=== PATIENT | female | born 1950 | race Caucasian/White ===

== ENCOUNTER 2023-09-18 09:00 | Outpatient (RCR) | payer MEDICARE, BC, SELFPAY | END 2024-01-16 23:59 | disposition home or self-care (01) | PROVIDERS: PCP Family Medicine; Visit Provider Family Medicine | DX: M70.61 Trochanteric bursitis, right hip (principal); M25.551 Pain in right hip; M54.50 Low back pain, unspecified; Z74.09 Other reduced mobility; Z51.89 Encounter for other specified aftercare | CPT/HCPCS: 97110; 97140; 97162 ==

== ENCOUNTER 2025-01-11 09:29 | Emergency (ER) | payer MEDICARE, BC, SELFPAY ==
[2025-01-11] VITALS (27 sets, daily range): BP systolic 148–216; BP diastolic 60–91; PULSE 47–55; RESP 7–77; TEMP 36.1–36.4; O2SAT 94–98; BMI 28.2
--- OUTSIDE RECORDS SUMMARY | 2025-01-11 09:31 | XMS_ITS | Clinical Summary ---
Author Organization [facility] Address [address] [place] [id number] Care Team Providers Care Buffet Manager Name Role Phone Kaycee, Brenda Munoz MD Primary Care Provider Allergies Active Allergy Reactions Criticality Noted Date Comments Adhesive Anxiety,Rash 01/09/2019 Lactase Diarrhea 06/24/2024 Gluten Nausea Only 01/02/2016 Lactose GI Upset 01/15/2024 Levofloxacin Edema 05/18/2014 Swelling in left ankle Lisinopril Cough 11/29/2022 Sulfamethoxazole-Trimetho prim Rash High 02/26/2018 Patient had been on Bactrim from February 15, 2018, until about February 20, 2018. She restarted Bactrim on February 26, and, about 2.5 hours later, she started experiencing a burning, painful rash on the arms, legs, torso, influenza-like symptoms (fever and body aches), diarrhea and vomiting. Medications cholecalciferol (VITAMIN D) 1,000 unit capsule Take 1 capsule by mouth once daily. 0 3 Active ACIDOPHILUS/BULGAR ICUS (LACTOBACILLUS ACIDOPHILUS & BULGAR CHEWABLE) chewable tablet 14 billion Taking two daily 0 3 Active vitamin B complex with vitamin C (SUPER B COMPLEX-VITAMIN C) tablet Take 1 tablet by mouth once daily. 0 4 Active zinc acetate (GALZIN) 50 mg (zinc) cap Take 1 Capsule (50 mg) by mouth 3 times daily before meals. 0 1 Active ketoconazole 2% topical (NIZORAL) cream Apply topically to affected area(s) 2 times daily. 60 g 1 Active cetirizine (ZYRTEC) 10 mg tablet Take 1 Tablet (10 mg) by mouth once daily. 0 2 Active curcumin-phosphati dylcholine 500 mg cap Take by mouth. 0 2 Active medium chain triglycerides (MCT Oil) 14 gram-120 kcal/15 mL oil Take by mouth. 0 2 Active traZODone (DESYREL) 50 mg tabletIndications: Insomnia, idiopathic Take 3 Tablets (150 mg) by mouth at bedtime if needed for Sleep. 270 Tablet 3 5 Active rosuvastatin (CRESTOR) 10 mg tabletIndications: Hyperlipidemia, unspecified hyperlipidemia type TAKE 1 TABLET BY MOUTH EVERYDAY AT BEDTIME 90 Tablet 1 5 Active propranoloL (INDERAL) 20 mg tabletIndications: Tremor, essential Take 1.5 Tablets (30 mg) by mouth once daily. 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, estrogen receptor positive 01/02/2019 Malignant neoplasm of upper- outer quadrant of left breast in female, estrogen receptor positive 05/15/2018 History of breast cancer 04/23/2018 Osteoporosis 04/23/2018 Malignant neoplasm of left female breast 016 Overview (08/07/2021): 01/05/16 - s/p left breast complete mastectomy, left sentinal lymph node biopsy - Dr Daniels History of melanoma 07/21/2015 Left thyroid nodule 07/21/2015 Frozen shoulder 02/27/2013 Tremor, essential 08/03/2011 Symptomatic menopausal or female climacteric sta elke 05/29/2007 Encounters Date Type Department Care Team Description 12/09/2024 Refill [facility] [address] [facility] [address] Brenda Benoit MD Refill Request (Propranolol, Amlodipine) 12/01/2024 Refill [facility] [address] [facility] [address] Brenda Benoit MD Refill Request (Rosuvastatin) 11/26/2024 Refill [facility] [address] [place] [address] Brenda Benoit MD Refill Request (Trazodone) 10/28/2024 9:30 AM CLAIM SPECIALIST Ancillary Procedure [facility] [address] [place] [address] 10/27/2024 Travel from Last 3 Months Immunizations Name Administration Dates Next Due AMB INFLUENZA IIV3 (AGE 65+ YRS) PF (Flu Clinic Only) 09/07/2013 COVID-19 vaccine (Moderna 100mcg/0.5mL) PF, MDV 09/12/2021,01/20/2021,12/23/2020 COVID-19 vaccine (Moderna 50mcg/0.5mL) 12YO+ BIVALENT PF, MDV 09/12/2022 COVID-19 vaccine (Pfizer-Bio NTech 30mcg/0.3mL) 12YO+ PETER-SUCROSE PF, MDV 03/14/2022 Hepatitis A (Adult) 03/03/2007 Hepatitis A, Unspecified 03/03/2007,01/24/1996 Hepatitis B (Adult) 05/24/2003,10/06/1996,1995 Hepatitis B, Unspecified 05/24/2003 Inactivated Polio Vaccine 08/09/2009 Influenza A (H1N1), Inactivated 09/28/2009 Influenza, High-dose Inactivated 018,10/14/2017,07/27/2016,2014 Influenza, High-dose Quadriv alent Inactivated 07/17/2022 Influenza, IIV3 (Age >=3 years) 08/21/2011,11/24,10/11/2009 Influenza, IIV4 08/02/2014 Influenza, Inactivated AIIV4 (Age 65+ Years) Preserv Free 07/30/2023,08/07/2021 Influenza, Inactivated IIV3 (Age 65+ Years) Preserv Free 08/12/2024 Pneumococcal Poly,23-Valent (Pneumovax) 07/27/2016 Pneumococcal conj 13-Valent (Prevnar 13) 03/19/2015 Td, Preservative Free (age > = 7 Years) 01/24/1996 Tdap 07/27/2016,03/03/2007 Tuberculin Skin Test, Unspecified 05/24/2003 Typhoid (oral) 08/09/2009 Zoster (Shingrix-RZV, recombinant) 08/21/2019, Zoster (Zostavax-ZVL, live) 08/21/2011 Family History Medical History Relation Name Comments Other Father tumor in spine Other Mother Alzheimer's Cancer-breast Paternal Aunt Cancer-breast Paternal Grandmother Relation Name Status Comments Father Mother Paternal Aunt Paternal Grandmother Social History Tobacco Use Types Packs/Day Years Used Date Smoking Tobacco: Never Smokeless Tobacco: Never Tobacco Cessation:Counseling Given: Yes Alcohol Use Standard Drinks/Week Comments Yes 0 (1 standard drink = 0.6 oz pur e alcohol) weekly PHQ-2 Answer Date Recorded PHQ-2 TOTAL SCORE 0 01/15/2024 Social Connections Answer Date Recorded Frequency of Communication with Friends and Fami ly 0 07/25/2023 Financial Resource Strain Answer Date R ecorded Difficulty of Paying Living Expenses 3 07/25/2023 Difficulty of Paying Living Expenses Not on file 07/25/2023 Food Insecurity Answer Date Recorded Worried About Running Out of Food in the Last Ye ar 1 07/25/2023 Transportation Needs Answer Date Record ed Lack of Transportation (Medical) 1 07/25/2023 Housing Stability Answer Date Recorded Unable to Pay for Housing in the Last Year 1 07/25/2023 Comments No Sex and Gender Information Value Date Recorded Sex Assigned at Not on file Legal Sex Female 6:05 AM CLAIM SPECIALIST Gender Identity Not on file Sexual Orientation Not on file 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 Not on file Not on file Obstetrics History Last Filed Vital Signs Vital Sign Reading Time Taken Comments Blood Pressure 131/63 08/12/2024 2:49 PM CDT Pulse 40 08/12/2024 2:49 PM CDT Temperature 36.7 C (98.1 F) 04/17/2022 2:06 PM CDT Respiratory Rate 16 02/07/2023 4:25 PM CDT Oxygen Saturation 98% 08/12/2024 2:49 PM CDT Inhaled Oxygen Concentration - - Weight 77.6 kg (171 lb) 08/12/2024 2:49 PM CDT Height 165.7 cm (5' 5.25) 01/15/2024 2:47 PM CS T Body Mass Index 28.24 01/15/2024 2:47 PM CLAIM SPECIALIST Plan of Treatment Health Maintenance Due Date Last Done Comments COVID-19 vaccine series ( season) 2024 10/18/2023, 09/12/2022, 03/14/2022, Additional history exists RSV vaccine for adults or (1 - 1-dose 75+ series) 2024 BMI (ht and wt on same day) for age 18+ 01/15/2025 01/15/2024, 07/25/2023, 09/20/2022, Additional history exists Depression screening for age 12+ 01/15/2025 01/15/2024, 09/20/2022, 09/20/2022 Medicare Wellness for age 65+ 01/15/2025 01/15/2024, 09/20/2022 Tetanus booster 07/27/2026 07/27/2016, 02/16, 01/24/1996 Lipids for age 45-75 01/27/2029 01/28/2024, 09/20/20 22 Colonoscopy through age 75 02/07/203002/07, 02/07/2023, 02/07/2023, Additional history exists Pneumococcal series for age 50+ Completed 6, 03/19/2015 Tdap Completed 07/27/2016, 03/03/2007 Zoster (shingles) series for age 50+ Completed 08/21/2019, 07/20/2019, 08/21/2011 Hepatitis C screening for ag e 18-79 Completed 09/20/2022 Influenza for age 65+ Completed 08/12/2024 , 07/30/2023, 07/17/2022, Additional history exists DEXA/DXA scan for age 65+ Completed 2023, 10/18/2022, 08/07/2021, Additional history exists Procedures Procedure Name Priority Date/Time Associated Diagnosis Comments XR DXA BONE DENSITY 2 SITES AXIAL Routine 10/28/2024 9:54 AM CLAIM SPECIALIST Primary malignant neoplasm of upper inner quadrant of female breast, left (HC) Osteoporosis Postmenopausal state LIPID PANEL W REFLEX MEASURED LDL Routine 01/28/2024 8:39 AM CDT Lipid screening COLONOSCOPY SCREENING Routine 02/07/2023 2:55 PM CDT Screening for colon cancer ANTI HCV Routine 09/20/2022 10:41 AM CDT Need for hepatitis C screening test from Last 3 Months or Most Recently Relevant to Health Maintenance Results * (ABNORMAL) XR DXA BONE DENSITY 2 SITES AXIAL (10/28/2024 9:54 AM CLAIM SPECIALIST) Anatomical Region Laterality Modality Spine, HIPS, HIPL, HIPR Other Impressions 11/03/2024 1:57 PM CLAIM SPECIALIST Osteopenia. Due to the stability of the bone density, consider to continue medication, patient reported stopping Zometa in the past year. RECOMMENDATIONS: The National Osteoporosis Foundation recommends pharmacologic treatment for patients with T-scores of -2.5 or less, patients with prior history of fragility fractures, or patients with 10-year probability of greater than 3% at hips or greater than 20% of suffering major osteoporotic fractures. Recommend continued optimization of calcium and vitamin D intake through dietary means and/or supplementation and regular exercise. Consider pharmacologic therapy for osteopenia with increased fracture risk. Follow-up bone density reading in 2 years if therapy initiated to assess therapeutic efficacy. Arina Hudson PA-C [employer] [facility] 11/03/2024 Narrative 11/03/2024 1:57 PM CLAIM SPECIALIST For Patients: Results are automatically released to your [employer] ([employer]) account once available, in compliance with federal regulations. This means that you may see your results before your provider has had a chance to review them. Please allow 2-3 business days for your provider to comment on the results. XR DXA Bone Mineral Density (BMD) EXAM LOCATION: [facility] [address] [facility] [address] PATIENT NAME: Jesenia Saunders DATE OF : 1950 EXAM DATE: 10/28/2024 REQUESTING PROVIDER: Zaid Motley MBBS GENDER AT : female HEIGHT: 5' 5.25 (01/15/2024) WEIGHT: 171 lb (08/12/2024) MENOPAUSAL STATUS: Postmenopausal RACE/ETHNICITY: White RISK FACTORS: Family History of Hip Fracture (parental) and White Race CURRENT MEDICATION FOR BONE LOSS: NONE INDICATION: Follow-up of existing osteopenia, Follow-up of pharmacologic treatment, and Post-Menopause COMPARISON DATE(S): 2021 DXA scans are compared to prior studies for a patient only when the two (or more) studies were performed on the same scanner. It is not possible to compare data generated on one scanner to data from another because there are not standards in DXA equipment. This applies even if the two scanners are made by the same supervisor prop making. PROCEDURE: Dual-energy x-ray absorptiometry performed with routine technique. Reporting is completed in the form of a T-score. The T-score represents the standard deviation from peak bone mass based on young healthy adult. A Z-score is used for diagnosis in premenopausal women, and for men under the age of 50. FINDINGS: RESULT LUMBAR SPINE L1 - L4 BMD: 1.031 g/cm2 T-Score: - 1.3 Z-Score: + 0.0 Change from prior in 2021: Increase 0.3%. RESULTS FEMUR Left femoral neck BMD: 0.769 g/cm2 T-Score: - 1.9 Z-Score: - 0.3 Change from prior in 2021: Decrease 3.9%. Right femoral neck BMD: 0.735 g/cm2 T-Score: - 2.2 Z-Score: - 0.5 Change from prior in 2021: Decrease 0.1%. Left hip BMD: 0.843 g/cm2 T-Score: - 1.3 Z-Score: + 0.1 Change from prior in 2021: Decrease 2.2%. Right hip BMD: 0.872 g/cm2 T-Score: - 1.1 Z-Score: + 0.4 Change from prior in 2021: Increase 1.5 WHO criteria: Normal: T-score at or above -1 SD Osteopenia: T-score between -1.1 and -2.4 SD Osteoporosis: T-score at or below -2.5 SD FRAX score: Major osteoporotic fracture: 14% Hip fracture: 3.7%. Zaid STEVENS DEXA Final Re sult * LIPID PANEL W REFLEX MEASURED LDL (01/28/2024 8:39 AM CDT) Pathologist [facility] CHOLESTEROL,TOTAL 158 100 - 199 mg/dL 01/28/2024 7:17 PM CDT [facility] Comment: Cholesterol, Total Reference Ranges Desirable <200 mg/dL Borderline 200-239 mg/dL High >=240 mg/dL TRIGLYCERIDES 84 <150 mg/dL 01/28/2024 7:17 PM CDT [facility] HDL CHOLESTEROL 74 >40 mg/dL 7:17 PM CDT [facility] NON-HDL CHOLESTEROL 84 <145 mg/dl 01/28/2024 7:17 PM CDT [facility] CHOL/HDL RATIO 2.14 <4.50 01/28/2024 7:17 PM CDT [facility] LDL CHOLESTEROL 67 <=130 mg/dL 01/28/2024 7:17 PM CDT [facility] VLDL CHOLESTEROL 17 <=30 mg/dL 01/28/2024 7:17 PM CDT [facility] PROVIDER ORDERED STATUS RANDOM 01/28/2024 7:17 PM CDT [facility] Blood BLOOD SPECIMEN / Unknown Venipuncture / Unknown 01/28/2024 8:39 AM CDT 01/28/2024 8:40 AM CDT Brenda Beniot MD CHEMISTRY Final R esult [facility] [address] [place] [address], * COLONOSCOPY (02/07/2023 2:44 PM CDT) 02/07/2023 2:44 PM CDT Narrative Transcriptions Taurus Shahid MD - 02/07/2023 4:09 PM CDT Patient Name: Jesenia Saunders Procedure Date: 02/07/2023 Gender: Female Date of : 1950 Admit Type: Outpatient Procedure: Colonoscopy Proceduralist: Taurus Shahid MD , Francia Scales, ABBIE (Nurse), Herlinda Stein (Nurse) Referring MD: Brenda Benoit Indications/Pre-Op Diagnosis: Screening for colorectal malignant neoplasm, Last colonoscopy: November 2012, Incidental diarrhea noted Medications: Fentanyl 100 micrograms IV, Midazolam 3 mgIV, The level of sedation administered wasmoderate Procedure Description: The patient had risks, benefits and alternatives explained to andgave informed consent. The patient had a stable cardiopulmonary status and judged an adequate candidate for conscious sedation. The endoscope [id number]-[id number] was passed through the anus andadvanced to the terminal ileum. The colonoscopy was performed withoutdifficulty. The patient tolerated the procedure well. The quality of the bowel preparation was good. The ileocecal valve, appendiceal orifice, and rectum were photographed. Complications: No immediate complications. Estimated Blood Loss & Specimen: Estimated blood loss: none. Specimen collected - Yes and sent to Laboratory Findings: The perianal and digital rectal examinations were normal. A 3 mm polyp was found in the rectum. The polyp was pedunculated. The polyp was removed with a cold snare. Resection and retrieval were complete. The exam was otherwise without abnormality. Biopsies for histology were taken with a cold forceps from the entire colon for evaluation of microscopic colitis. Impressions/Post-Op Diagnosis: - One 3 mm polyp in the rectum, removed with a cold snare. Resectedand retrieved. - The examination was otherwise normal. - Biopsies were taken with a cold forceps from the entire colon for evaluation of microscopic colitis. Recommendation: - Patient has a contact number available for emergencies. The signsand symptoms of potential delayed complications were discussed with the patient. Return to normal activities tomorrow. Written discharge instructions were provided to the patient. - Resume previous diet. - Continue present medications. - Await pathology results. - Repeat colonoscopy is recommended. The colonoscopy date will be determined after pathology results from today's exam become available for review. Moderate Sedation: A time out was performed before the procedure. Moderate (conscious) sedation was administered by the endoscopy nurse and supervised bythe endoscopist. The following parameters were monitored: oxygensaturation, heart rate, blood pressure, EKG, CO2, respiratory rate, adequacy of pulmonary ventilation and reponse to care. Please refer to the patient's medical record flowsheets and nursing notes for moderate sedation details. Total physician intraservice time was 18 minutes. Taurus Shahid MD 02/07/2023 4:09:40 PM This report has been signed electronically. Note Initiated On: 02/07/2023 2:44 PM Procedure Code(s): --- Professional --- 02003, Colonoscopy, flexible; with removalof tumor(s), polyp(s), or other lesion(s) bysnare technique 69119, 59, Colonoscopy, flexible; withbiopsy, single or multiple Diagnosis Code(s): --- Professional --- Z12.11, Encounter for screening formalignant neoplasm of colon D12.8, Benign neoplasm of rectum CPT copyright 2020 [employer]. All rights reserved. The codes documented in this report are preliminary and upon software engineer web services reviewmay be revised to meet current compliance requirements. Scope In: 3:43:24 PM Scope Withdrawal Time 0 hours 10 minutes 57 seconds Scope Out: 3:59:36 PM us Taurus Shahid MD PROCEDURE ORD Final Res ult * ANTI HCV (09/20/2022 10:41 AM CDT) HEPATITIS C ANTIBODY Non-React leo Non-React leo 09/21/2022 3:13 AM CDT [facility] Comment:Antibodies to HCV no t detected; does not exclude the possibility of exposure to HCV. Blood BLOOD SPECIMEN / Unknown Venipuncture / Unknown 09/20/2022 10:41 AM CDT 09/20/2022 10:41 AM CDT us Brenda Benoit MD SEND OUTS Final R esult [facility] [address] [place] [address], [place] from Last 3 Months or Most Recently Relevant to Health Maintenance Insurance BLUE [employer] [place] BLUE MR PB ONLY [id number] MR [place] ONLY [place] [id number] Care Teams Buffet Manager Relationship Specialty Start Date End Date Brenda Benoit MD [address] [place] [address] PCP - General Family Practice 08/07/21
--- OUTSIDE RECORDS SUMMARY | 2025-01-11 09:31 | XMS_ITS | Encounter Summary ---
Author Organization [facility] Address [address] [place] [address] Care Team Providers Care Doctor Osteopathic Name Role Phone Michael Murphy MD Primary Care Provider [phone] Michael Murphy MD Unavailable [phone] Adry Wang-C Unavailable [phone] Adry Wang-C Unavailable [phone] Michael Murphy MD Unavailable [phone] Shirley Galindo-C Unavailable [phone] Adry Wang-C Unavailable [phone] [facility] Primary Care Pr ovider Unavailable Lisette Olmstead-C Unavailable [phone] Lisette Olmstead-C Unavailable [phone] Brenda Benoit MD Primary Care Provider Lisette Olmstead-C Unavailable [phone] Lisette Olmstead-C Unavailable [phone] Reason for Visit * Reason Onset Date Comments Nurse Advice Line 12/20/2011 Encounter Details Date Type Department Care Team (Late st Contact Info) Description 12/20/2011 Telephone [facility] [address] [place] [phone] [place] [address] [place] [address] Nurse Advice Line Social History Tobacco Use Types Packs/Day Years Used Date Smoking Tobacco: Never Smokeless Tobacco: Never Alcohol Use Standard Drinks/Week Comments Yes 0 (1 standard drink = 0.6 oz pur e alcohol) occasional Comments No Sex and Gender Information Value Date Recorded Sex Assigned at Female 12/07/2021 7:51 AM WEIGHER BULKER Legal Sex Female 3:22 AM WEIGHER BULKER Gender Identity Female 12/07/2021 7:51 AM WEIGHER BULKER Sexual Orientation Not on file documented as of this encounter Miscellaneous Notes * Telephone Encounter - Nicole Hernandez - 09/17/2012 9:32 PM CDT [facility] Triage Call Report Patient Name: Jesenia Saunders Call Date & Time: 12/20/2011 7:47:08AM Patient PCP Name: Michael Murphy Patient Address: [address] [place] [id number] Patient Date of : 1950 Age: 61 yr. Patient Gender: Female Supervisor Engraving Name: Izabel Mcneill Presenting Problem: Jesenia has been on amoxicillin for 10 days for a sinus infection. During the last 3 days a cough developed and keeps her from sleeping. Jesenia hears a rattle in chest. No fever. [facility] Triage/Cough-Adult and advised to be seen within 24 hours and caller agreed. Triage Note: Guideline Title: Cough - Adult Recommended Disposition: Override Disposition: See Provider within 24 hours Question Response Question Note Severe breathing problems No Cough producing pink, frothy sputum No Breathing symptoms (post choking episode, shortness of No breath, out of breath, nasal flaring, change in skin color, anxiety) main problem Continuous cough causing difficulty breathing No Coughing up large amount of obvious blood (not No blood-streaked sputum) New onset or worsening cough, history of blood clots in No lungs or legs AND similar symptoms now New onset or worsening cough AND recent (within 4 wks.) No surgery or trauma, or prolonged immobilization (bedrest, long travel), or smoker taking medication with estrogen New or worsening cough AND chronic cardiac or No respiratory condition (heart failure, asthma, COPD) not responding to treatment OR treatment not available Any temperature elevation in an immunocompromised No individual or a frail elderly person New onset or worsening cough AND temperature of 101.5 No F (38.6C) or greater Blood streaked sputum No New onset or worsening cough AND asthma with increasing No frequency of flare-ups since last scheduled appointment New onset or worsening cough AND known cardiac or No respiratory disease (heart failure, chronic bronchitis, COPD, pneumonia, cancer, etc.) Sharp, fleeting chest pain only occurring with deep No breath or cough AND not responsive to home care Facial pain (fullness, pressure, worsens with bending No over), frontal headache, yellow-green nasal discharge AND any temperature elevation Productive cough with colored sputum (other than clear Yes or white sputum) Physician Contacted: Physician Instructions: No Care Advice: - Use a cool mist humidifier to moisten air. Be sure to clean according to tool maker's instructions. - Limit or avoid exposure to irritants and allergens (e.g. air pollution, smoke/smoking, chemicals,dust, pollen, pet dander, etc.) - Call provider if fever greater than 101.5 F (38.6 C) or 100.5 F (38.1C) in an immunocompromised patient (such as diabetes, HIV/AIDS, renal disease, chemotherapy, organ transplant, or chronic steroid use) has not improved in 24 hours. - Increase fluids to 8-12 eight oz (1.6 to 2.4 liters) glasses per day, half of them to be water. Soups, popsicles, fruit juices, non-caffeinated sodas (unless restricting sodium intake), jello, broths, decaf teas, etc. are all okay. Warm fluids can be soothing. - CAUTIONS - If you can, stop smoking now and avoid all secondhand smoke. - HEALTH PROMOTION / MAINTENANCE - SYMPTOM / CONDITION MANAGEMENT - Coughing up mucus or phlegm helps to get rid of an infection. A productive cough should not be stopped. A cough medicine with guaifenesin (Robitussin, Mucinex) can help loosen the mucus. Cough medicine with dextromethorphan (DM) should be avoided. Drinking lots of fluids can help loosen the mucus too, especially warm fluids. MEDICAL HISTORY Conditions: Condition Note: .Other Current-Sinus Infection; Hereditary Hand Tremor Medication: Medication Note: .Other - RX Med, not on list Amoxicillin-for sinus infection; Propanolol, & Actonel Allergy: Reaction: .Denies .None Procedure: Procedure Note: .Other Appendectomy documented in this encounter Plan of Treatment Upcoming Encounters Date Type Department Care Team (Late st Contact Info) Description 03/22/2025 3:00 PM CDT Virtual Visit [facility] [address] [place] [phone] Lisette Olmstead PA-C [address] [id number] documented as of this encounter Visit Diagnoses Not on filedocumented in this encounter Care Teams Doctor Osteopathic Relationship Specialty Start Date End Date Michael Murphy MD [address] [place] [address] [id number] PCP - General 05/24/03 11/06/21 Michael Murphy MD [address] [place] [address] PCP - Assigned PCP 12/30/08 10/18/18 Adry Wang PA-C [address] [place] [address] PCP - Assigned PCP 10/19/18 01/20/[address] [address] PCP - General 11/07/21 02/22/23 Brenda Benoit MD [address] [place] [address] [place] [address] PCP - General Family Medicine 09/27/23 Adry Wang PA-C [address] [place] [address] [place] [address] Assigned PCP 10/19/18 03/21/19 Michael Murphy MD [address] [place] [address] [id number] Assigned PCP 03/22/19 10/15/20 Shirley Galindo PA-C [address] [place] [address] 199402 Assigned PCP 10/16/20 02/18/21 Adry Wang PA-C [address] [place] [address] [place] [address] Assigned PCP 02/19/21 03/25/21 Lisette Olmstead PA-C [address] [place] [address] Physician Plug Machine Operator Urology 11/17/21 Lisette Olmstead PA-C [address] [place], [place] 4160[address] Assigned Surgical Provider 12/10/21 Lisette Olmstead PA-C [address] [place] [address] Physician Plug Machine Operator Urology 10/08/24 Lisette Olmstead PA-C [address] [place] [address] Physician Plug Machine Operator Urology 12/28/24 documented as of this encounter
--- OUTSIDE RECORDS SUMMARY | 2025-01-11 09:31 | XMS_ITS | Encounter Summary ---
Author Organization [facility] Address [address] [place] [address] Care Team Providers Care Biomedical Engineering Aide Name Role Phone Lisette Olmstead PA-C Unavailable Lisette Olmstead PA-C Unavailable Brenda Benoit MD Primary Care Provider Lisette Olmstead PA-C Unavailable Encounter Details Date Type Department Care Team (Latest Contact Info) Description 12/23/2024 Travel Social History Tobacco Use Types Packs/Day Years Used Date Smoking Tobacco: Never Smokeless Tobacco: Never Alcohol Use Standard Drinks/Week Comments Yes 0 (1 standard drink = 0.6 oz pur e alcohol) 2-3 glasses of wine/week PHQ-2 Answer Date Recorded PHQ-2 Score 0 11/25/2018 Adolescent Education Answer Date Record ed Getting School Help Needed Not on file 08/18 Comments No Sex and Gender Information Value Date Recorded Sex Assigned at Female 12/07/2021 7:51 AM COMMISSIONING AGENT Legal Sex Female 3:22 AM COMMISSIONING AGENT Gender Identity Female 12/07/2021 7:51 AM COMMISSIONING AGENT Sexual Orientation Not on file 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 on file Not on file documented as of this encounter Plan of Treatment Upcoming Encounters Date Type Department Care Team (Late st Contact Info) Description 03/22/2025 3:00 PM CDT Virtual Visit [facility] [address] [place] [phone] Lisette Olmstead PA-C [address] [place] [address] documented as of this encounter Visit Diagnoses Not on filedocumented in this encounter Care Teams Biomedical Engineering Aide Relationship Specialty Start Date End Date Brenda Benoit MD [address] [place] [address], [place] [address] PCP - General Family Medicine 09/27/23 Lisette Olmstead PA-C [address] [place] [address] Physician Tarp Repairer Urology 11/17/21 Lisette Olmstead PA-C [address] [place], [place] [id number] Assigned Surgical Provider 12/10/21 Lisette Olmstead PA-C [address] [place] [address] Physician Tarp Repairer Urology 10/08/24 documented as of this encounter
--- OUTSIDE RECORDS SUMMARY | 2025-01-11 09:31 | XMS_ITS | Encounter Summary ---
Author Organization [facility] Address [address] [place] [address] Care Team Providers Care Avionics Technician Name Role Phone Lisette Olmstead PA-C Unavailable Lisette Olmstead PA-C Unavailable Brenda Benoit MD Primary Care Provider Lisette Olmstead PA-C Unavailable Reason for Referral * Diagnostic Imaging CT Scan (Routine) - Closed Specialty Diagnoses / Procedures Referred By Aly fitch Referred To Contact Radiology. Diagnoses Nephrolithiasis Procedures CT Abdomen Pelvis w/o Contrast Lisette Olmstead PA-C [address] [place] [address] Phone: tel: fax: Referral ID Status Reason Start Date Expiration Date Visits Re quested Visits Authorized [id number] Closed 09/17/2024 09/17/2025 1 1 L CLERK Reason for Visit * Diagnostic Imaging CT Scan (Routine) - Closed Specialty Diagnoses / Procedures Referred By Contjessica fitch Referred To Contact Radiology. Diagnoses Nephrolithiasis Procedures CT Abdomen Pelvis w/o Contrast Lisette Olmstead PA-C [address] [place] [address] Phone: tel: fax: Referral ID Status Reason Start Date Expiration Date Visits Re quested Visits Authorized [id number] Closed 09/17/2024 09/17/2025 1 1 Encounter Details Date Type Department Care Team (Latest Contact Info) Description 12/23/2024 10:41 AM HOTEL CLERK - 12/23/2024 11:59 PM HOTEL CLERK Hospital Encounter [facility] [address] [place] [phone] Lisette Olmstead PA-C [address] [place] [address] Nephrolithiasis Discharge Disposition: Home or Self Care Social History Tobacco Use Types Packs/Day Years [...] Sex Assigned at Female 12/07/2021 7:51 AM HOTEL CLERK Legal Sex Female 3:22 AM HOTEL CLERK Gender Identity Female 12/07/2021 7:51 AM HOTEL CLERK Sexual Orientation Not on file 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 on file Not on file documented as of this encounter Medications at Time of Discharge ACIDOPHILUS OR CAPS one capsules daily 0 04/05/2009 amLODIPine (NORVASC) 5 MG tablet Take 5 mg by mouth daily 11/29/2022 anastrozole (ARIMIDEX) 1 MG tablet 1 mg Take 1 tablet daily 03/05/2016 calcium citrate-vitamin D (CITRACAL) 200-6.25 MG-MCG TABS per tablet Take 3 tablets by mouth 2 times daily cholecalciferol (VITAMIN D) 1000 UNIT tablet Take 1,000 Units by mouth daily 100 tablet 3 07/27/2016 co-enzyme Q-10 100 MG CAPS capsule Take 300 mg by mouth daily ginkgo biloba 60 MG CAPS capsule Take 120 mg by mouth daily magnesium 100 MG CAPS Take 2 capsules by mouth daily 07/27/2016 Misc Natural Products (TURMERIC CURCUMIN) CAPS Take 1,330 mg by mouth 12/30/2015 Multiple Vitamins-Mineral s (ZINC PO) Take 54 mg by mouth omega 3 1000 MG CAPS Take 1 g by mouth daily 90 capsule 12/30/2015 POTASSIUM CITRATE PO Take 200 mg by mouth daily propranolol HCl 60 MG TABSIndications: Tremor, essential TAKE 1 TABLET BY MOUTH ONCE EVERY DAY . 90 tablet 2 01/15/2018 Psyllium-Calcium (METAMUCIL PLUS CALCIUM) CAPS Take 2 capsules by mouth 2 times daily rosuvastatin (CRESTOR) 10 MG tablet Take 10 mg by mouth daily 10/26/2022 traZODone (DESYREL) 50 MG tablet Take 150 mg by mouth At Bedtime UNABLE TO FIND 830 mg MEDICATION NAME: DHA Omega3 - 1 tablet daily 12/30/2015 vitamin B complex with vitamin C (STRESS TAB) tablet Take 1 tablet by mouth daily vitamin E (VITAMIN E BLEND) 400 UNIT capsule Take by mouth daily 30 capsule 07/27/2016 zoledronic Acid (RECLAST) 5 MG/100ML SOLN infusion Inject 100 mLs (5 mg) into the vein once for 1 dose 100 mL 03/21/2018 documented as of this encounter Plan of Treatment Upcoming Encounters Date Type Department Care Team (Late st Contact Info) Description 03/22/2025 3:00 PM CDT Virtual Visit [facility] [address] [place] [address] Lisette Olmstead PA-C [address] [facility] [address] [place], [place] [address] documented as of this encounter Procedures Procedure Name Priority Date/Time Associated Diagnosis Comments CT ABDOMEN PELVIS W/O CONTRAST Routine 12/23/2024 11:10 AM HOTEL CLERK Nephrolithiasis documented in this encounter Results * CT Abdomen Pelvis w/o Contrast (12/23/2024 11:10 AM HOTEL CLERK) Anatomical Region Laterality Modality Abdomen/Pelvis, SUBRAD CT JAMEEL DY, UMP CT ABDOMEN PELVIS, RAD CT Computed Tomography 12/23/2024 11:1 0 AM HOTEL CLERK Impressions 12/23/2024 12:43 PM HOTEL CLERK IMPRESSION: 1. Stable stone burden involving the bilateral kidneys with multiple intrarenal stones. No hydronephrosis. 2. Stable nodule at the left lung base. The prior exam report states that this nodule is stable since 11/07/2021. Narrative 12/23/2024 12:43 PM HOTEL CLERK EXAM: CT ABDOMEN PELVIS W/O CONTRAST LOCATION: [facility] DATE: 12/23/2024 INDICATION: Nephrolithiasis. COMPARISON: 12/19/2023. TECHNIQUE: CT scan of the abdomen and pelvis was performed without IV contrast. Multiplanar reformats were obtained. Dose reduction techniques were used. CONTRAST: None. FINDINGS: LOWER CHEST: Stable lingular solid nodule measuring 9 mm series 4 image 1. HEPATOBILIARY: Normal. PANCREAS: Normal. SPLEEN: Normal. ADRENAL GLANDS: Normal. KIDNEYS/BLADDER: No hydronephrosis. A few renal cysts are stable bilaterally without specific imaging follow-up recommended. Stable multifocal bilateral 3-4 mm intrarenal stones. Stable stone burden. Bladder is unremarkable. BOWEL: No obstruction or acute abnormality. Scattered colonic diverticula without diverticulitis. LYMPH NODES: Normal. VASCULATURE: Mild vascular calcifications. PELVIC ORGANS: Normal. MUSCULOSKELETAL: Mild degenerative changes of the spine. Procedure Note Dale Oneal MD - 12/23/2024 EXAM: CT ABDOMEN PELVIS W/O CONTRAST LOCATION: [facility] DATE: 12/23/2024 INDICATION: Nephrolithiasis. COMPARISON: 12/19/2023. TECHNIQUE: CT scan of the abdomen and pelvis was performed without IVcontrast. Multiplanar reformats were obtained. Dose reduction techniqueswere used. CONTRAST: None. FINDINGS: LOWER CHEST: Stable lingular solid nodule measuring 9 mm series 4 image1. HEPATOBILIARY: Normal. PANCREAS: Normal. SPLEEN: Normal. ADRENAL GLANDS: Normal. KIDNEYS/BLADDER: No hydronephrosis. A few renal cysts are stablebilaterally without specific imaging follow-up recommended. Stablemultifocal bilateral 3-4 mm intrarenal stones. Stable stone burden.Bladder is unremarkable. BOWEL: No obstruction or acute abnormality. Scattered colonic diverticulawithout diverticulitis. LYMPH NODES: Normal. VASCULATURE: Mild vascular calcifications. PELVIC ORGANS: Normal. MUSCULOSKELETAL: Mild degenerative changes of the spine. IMPRESSION: 1. Stable stone burden involving the bilateral kidneys with multipleintrarenal stones. No hydronephrosis. 2. Stable nodule at the left lung base. The prior exam report states thatthis nodule is stable since 11/07/2021. Lisette Olmstead PA-C IMG CT ORDERABLES Fin al Result documented in this encounter Visit Diagnoses Diagnosis Nephrolithiasis Calculus of kidney documented in this encounter Care Teams Avionics Technician Relationship Specialty Start Date End Date Brenda Benoit MD [address] [place] [address] PCP - General Family Medicine 09/27/23 Lisette Olmstead PA-C [address] [place], [place] [address] Physician Boss Dyer Urology 11/17/21 Lisette Olmstead PA-C [address] [place] [address] Assigned Surgical Provider 12/10/21 Listete Olmstead PA-C [address] [place], [place] [address] Physician Boss Dyer Urology 10/08/24 documented as of this encounter
--- OUTSIDE RECORDS SUMMARY | 2025-01-11 09:31 | XMS_ITS | Encounter Summary ---
Author Organization [facility] Address [address] [place] [address] Care Team Providers Care Agriculture Specialist Name Role Phone Michael Murphy MD Primary Care Provider [phone] Michael Murphy MD Unavailable [phone] Adry Wang-C Unavailable [phone] Adry Wang-C Unavailable [phone] Michael Murphy MD Unavailable [phone] Shirley Galindo-C Unavailable [phone] Adry Wang-C Unavailable [phone] [facility] Primary Care Pr ovider Unavailable Lisette Olmstead-C Unavailable +[phone] Lisette Olmstead-C Unavailable +[phone] Brenda Benoit MD Primary Care Provider Lisette OlmsteadC Unavailable +1- Lisette Olmstead-C Unavailable +1- Encounter Details Date Type Department Care Team (Late st Contact Info) Description 08/07/2010 [facility] Medical Advice [address] [place] [place] [phone] Michael Murphy MD [address] [place] [id number] Social History Tobacco Use Types Packs/Day Years Used Date Smoking Tobacco: Never Alcohol Use Standard Drinks/Week Comments Yes 0 (1 standard drink = 0.6 oz pur e alcohol) occasional Comments No Sex and Gender Information Value Date Recorded Sex Assigned at Female 12/07/2021 7:51 AM SUPERVISOR COMMUNICATIONS AND SIGNALS Legal Sex Female 3:22 AM SUPERVISOR COMMUNICATIONS AND SIGNALS Gender Identity Female 12/07/2021 7:51 AM SUPERVISOR COMMUNICATIONS AND SIGNALS Sexual Orientation Not on file documented as of this encounter Plan of Treatment Upcoming Encounters Date Type Department Care Team (Late st Contact Info) Description 03/22/2025 3:00 PM CDT Virtual Visit [facility] [address] [place] [phone] Lisette Olmstead PA-C [address] [address] documented as of this encounter Visit Diagnoses Not on filedocumented in this encounter Care Teams Agriculture Specialist Relationship Specialty Start Date End Date Michael Murphy MD [address] [place] [address] [id number] PCP - General 05/24/03 11/06/21 Michael Murphy MD [address] [place] [address] PCP - Assigned PCP 12/30/08 10/18/18 Adry Wang PATheodoraC [address] [place] [address] PCP - Assigned PCP 10/19/18 01/20/19 [facility], [address] [address] PCP - General 11/07/21 02/22/23 Brenda Benoit MD [address] [place] [address] [place] [address] PCP - General Family Medicine 09/27/23 Adry Wang PA-C [address] [place], [place] [address] [place] [address] Assigned PCP 10/19/18 03/21/19 Michael Murphy MD [address] [place] [address] Assigned PCP 03/22/19 10/15/20 Shirley Galindo PA-C [address] [place] [address] Assigned PCP 10/16/20 02/18/21 Adry Wang PA-C [address] [place] [address] [place] [address] Assigned PCP 02/19/21 03/25/21 Lisette Olmstead PA-C [address] [place] [address] Physician Flap Presser Urology 11/17/21 Lisette Olmstead PA-C [address] [place] [address] Assigned Surgical Provider 12/10/21 Lisette Olmstead PA-C [address] [place] [address] Physician Flap Presser Urology 10/08/24 Lisette Olmstead PA-C [address] [place] [address] Physician Flap Presser Urology 12/28/24 documented as of this encounter
--- OUTSIDE RECORDS SUMMARY | 2025-01-11 09:31 | XMS_ITS | Encounter Summary ---
Author Organization [place] Address [address] [place] [address] Care Team Providers Care Spanner Operator Name Role Phone Michael Murphy MD Primary Care Provider [phone] Michael Murphy MD Unavailable [phone] Adry Wang-C Unavailable +[phone] Adry Wang-C Unavailable +1-4 Michael Murphy MD Unavailable [phone] Shirley Galindo PA-C Unavailable [phone] Adry Wang-C Unavailable +[phone] [facility] Primary Care Pr ovider Unavailable Lisette Olmstead-C Unavailable [phone] Lisette Olmstead-C Unavailable +[phone] Bredna Benoit MD Primary Care Provider Lisette Olmstead-C Unavailable [phone] Lisette Olmstead-C Unavailable +[phone] Reason for Visit * Reason Onset Date Comments MyChart Communication 03/05/2013 Encounter Details Date Type Department Care Team (Late st Contact Info) Description 03/05/2013 MyC Medical Advice [facility] [address] [place] [address] [place] [phone] [place] [address] [place] [address] [place] [address] MyChart Communication Social History Tobacco Use Types Packs/Day Years Used Date Smoking Tobacco: Never Smokeless Tobacco: Never Alcohol Use Standard Drinks/Week Comments Yes 0 (1 standard drink = 0.6 oz pur e alcohol) seldom Comments No Sex and Gender Information Value Date Recorded Sex Assigned at Female 12/07/2021 7:51 AM COIL WINDING MACHINES SET UP MECHANIC Legal Sex Female 3:22 AM COIL WINDING MACHINES SET UP MECHANIC Gender Identity Female 12/07/2021 7:51 AM COIL WINDING MACHINES SET UP MECHANIC Sexual Orientation Not on file 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 Thank you! Denita Peña, RN [facility] documented in this encounter Plan of Treatment Upcoming Encounters Date Type Department Care Team (Late st Contact Info) Description 03/22/2025 3:00 PM CDT Virtual Visit [facility] [address] [place] [address] Lisette Olmstead, NICK [address] [place] [address] [place] [address] documented as of this encounter Visit Diagnoses Not on filedocumented in this encounter Care Teams Spanner Operator Relationship Specialty Start Date End Date Michael Murphy MD [address] [place] [address] PCP - General 05/24/03 11/06/21 Michael Murphy MD [address] [place] [address] PCP - Assigned PCP 12/30/08 10/18/18 Adry Wang PA-C [address] [place] [address] PCP - Assigned PCP 10/19/18 01/20/[address] [address] PCP - General 11/07/21 02/22/23 Brenda Benoit MD [address] [place] [address] PCP - General Family Medicine 09/27/23 Adry Wang PA-C [address] [place] [address] Assigned PCP 10/19/18 03/21/19 Michael Murphy MD [address] [place] [address] Assigned PCP 03/22/19 10/15/20 Shirley Galindo PA-C [address] [place] [address] Assigned PCP 10/16/20 02/18/21 Adry Wang PA-C [address] [facility] [place] [address] Assigned PCP 02/19/21 03/25/21 Lisette Olmstead PA-C [address] [place], [place] [phone] Physician Electronic Warfare Officer Urology 11/17/21 Lisette Olmstead PA-C [address] [place] [address] Assigned Surgical Provider 12/10/21 Lisette Olmstead PA-C [address] [place] [address] Physician Electronic Warfare Officer Urology 10/08/24 Lisette Olmstead PA-C [address] [place] [address] Physician Electronic Warfare Officer Urology 12/28/24 documented as of this encounter
--- OUTSIDE RECORDS SUMMARY | 2025-01-11 09:31 | XMS_ITS | Encounter Summary ---
Author Organization [place] Address [address] [place] [address] Care Team Providers Care Motocross Racer Name Role Phone Michael Murphy MD Primary Care Provider [phone] Michael Murphy MD Unavailable [phone] Adry Wang-C Unavailable +[phone] Adry Wang-C Unavailable +1-4 Michael Murphy MD Unavailable [phone] Shirley Galindo-C Unavailable [phone] Adry Wang-C Unavailable +[phone] [facility] Primary Care Pr ovider Unavailable Lisette Olmstead-C Unavailable +1- Lisette Olmstead-C Unavailable +[phone] Brenda Benoit MD Primary Care Provider Lisette Olmstead-C Unavailable +1- Lisette Olmstead-C Unavailable +1- Encounter Details Date Type Department Care Team (Late st Contact Info) Description 03/11/2007 MyC Medical Advice [address] [place] [address] [facility] Social History Tobacco Use Types Packs/Day Years Used Date Smoking Tobacco: Never Alcohol Use Standard Drinks/Week Comments Yes 0 (1 standard drink = 0.6 oz pur e alcohol) occasional Comments No Sex and Gender Information Value Date Recorded Sex Assigned at Female 12/07/2021 7:51 AM PROSTHETICS LAB TECHNICIAN Legal Sex Female 3:22 AM PROSTHETICS LAB TECHNICIAN Gender Identity Female 12/07/2021 7:51 AM PROSTHETICS LAB TECHNICIAN Sexual Orientation Not on file documented as of this encounter Plan of Treatment Upcoming Encounters Date Type Department Care Team (Late st Contact Info) Description 03/22/2025 3:00 PM CDT Virtual Visit [facility] [address] [place] [phone] Lisette Olmstead PA-C [address] [facility] [address] [address] documented as of this encounter Visit Diagnoses Not on filedocumented in this encounter Care Teams Motocross Racer Relationship Specialty Start Date End Date Michael Murphy MD [address] [place] [address] PCP - General 05/24/03 11/06/21 Michael Murphy MD [address] [place] [address] PCP - Assigned PCP 12/30/08 10/18/18 Adry Wang PA-C [address] [place] [address] PCP - Assigned PCP 10/19/18 01/20/19 [facility], [address] [address] PCP - General 11/07/21 02/22/23 Brenda Benoit MD [address] [place] [address], [place] [address] PCP - General Family Medicine 09/27/23 Adry Wang PA-C [address] [place] [address] [place] [address] Assigned PCP 10/19/18 03/21/19 Michael Murphy MD [address] [place] [address] [phone] Assigned PCP 03/22/19 10/15/20 Shirley Galindo PA-C [address] [place] [address] Assigned PCP 10/16/20 02/18/21 Adry Wang PA-C [address] [place] [address] [place] [address] Assigned PCP 02/19/21 03/25/21 Lisette Olmstead PA-C [address] [place], [place] [address] Physician Battery Vent Plug Inserter Urology 11/17/21 Lisette Olmstead PA-C [address] [place], [place] [address] Assigned Surgical Provider 12/10/21 Lisette Olmstead PA-C [address] [place], [place] [address] Physician Battery Vent Plug Inserter Urology 10/08/24 Lisette Olmstead PA-C [address] [place] [address] [place] [address] Physician Battery Vent Plug Inserter Urology 12/28/24 documented as of this encounter
--- OUTSIDE RECORDS SUMMARY | 2025-01-11 09:31 | XMS_ITS ---
Author Name Interface, [id number] lity Address [address] [address] [facility] Address [address] [place] [address] Care Team Providers Care Incinerator Plant Supervisor Name Role Phone Zaid Motley Unavailable Allergies and Adverse Reactions Medication/Group Name Reaction Severity Date Dairy products 12/14/2024 gluten 12/14/2024 sulfalene 12/14/2024 adhesive Rash 12/14/2024 levofloxacin no mappable FDB reaction Quinolones no mappable FDB reaction Plan Date Type Value 12/14/2024 APPOINTMENT OV 20 MIN 10/28/2024 APPOINTMENT OUTSIDE TEST 5 M IN 12/11/2023 APPOINTMENT TREATMENT 1 HR 12/11/2023 APPOINTMENT OV 20 MIN 12/11/2023 APPOINTMENT LAB 15 MIN 12/11/2023 LABORDER iSTAT creatinine panel 10/28/2024 LABORDER DEXA scan Reason for Visit OV 20 MIN Encounters Date Name 12/11/2023 History of malignant neoplasm of breast (situation) 12/11/2023 Hyperlipidemia (diso rder) 12/11/2023 Hypertensive disorde r, systemic arterial (disorder) 12/11/2023 Long-term current us e of aromatase inhibitor (situation) 12/11/2023 Osteoporosis (disord er) 12/11/2023 Postmenopausal state (finding) 12/11/2023 Primary malignant ne oplasm of female breast (disorder) Diagnostic Results Date Type Test Units Lower Limit Upper Limit Result Flag Comments Status Ordered By Specimen Source Lab Address 12/11 iSTAT creat inine panel Creat inine , iSTAT mg/dl 0.6 1.3 0.8 FINAL Zaid Motley [facility] [place], [address] [place] [id number] 0 Phone: () - 12/11 Cecile colvin panel GFR estim ate ml/min /1.73m ^2 77.2 GFR is calculate d using the CKD-EPI equation. FINAL [facility] [place], [address] [place] [phone] 0 Phone: () - 12/19 Misc other lab See is technician d 01/27 Misc other lab See is technician d Medications Date Name Route Dose Frequency Instructions Start Date End Date Status Cholecalciferol Oral daily active Zinc Oral daily active Propranolol Oral BID active Turmeric (Curcumin) Oral 2.0 daily acti ve Amlodipine Oral daily a ctive Vitamin B Complex Oral Tablet daily active Magnesium Glycinate Oral 2.0 daily activ e Rosuvastatin Calcium Oral daily active Probiotics Oral daily a ctive Trazodone Oral 3.0 qhs ac tive Cetirizine Oral daily a ctive Ketoconazole Topical Cream 2 % prn active Lactase Oral PRN acti ve 05/27 1 ML epinephrine 1 MG/ML Injection intramuscularly 0.3 mg once Re-initiate treatment only upon physician approval. 2023 active 05/27 hydrocortisone 100 MG Injection intravenously 100.0 mg Re-initiate treatment only upon physician approval. 2023 active 05/27 famotidine 10 MG/ML Injectable Solution intravenously 20.0 mg Re-initiate treatment only upon physician approval. 2023 active 05/27 methylprednisolo ne 2000 MG Injection intravenously 125.0 mg Re-initiate treatment only upon physician approval. 2023 active 05/27 Zoledronic Acid IV (Zometa) intravenously 4.0 mg once 2023 active 05/27 diphenhydramine hydrochloride 0.5 MG/ML Injectable Solution intravenously 50.0 mg Re-initiate treatment only upon physician approval. 2023 active 12/11 methylprednisolo ne 2000 MG Injection intravenously 125.0 mg Re-initiate treatment only upon physician approval. 2023 active 12/11 famotidine 10 MG/ML Injectable Solution intravenously 20.0 mg Re-initiate treatment only upon physician approval. 2023 active 12/11 1 ML epinephrine 1 MG/ML Injection intramuscularly 0.3 mg once Re-initiate treatment only upon physician approval. 2023 active 12/11 hydrocortisone 100 MG Injection intravenously 100.0 mg Re-initiate treatment only upon physician approval. 2023 active 12/11 diphenhydramine hydrochloride 0.5 MG/ML Injectable Solution intravenously 50.0 mg Re-initiate treatment only upon physician approval. 2023 active 06/07 letrozole 2.5 MG Oral Tablet orally 1.0 tablet daily 2022 active 05/08 hydrocortisone 100 MG Injection intravenously 100.0 mg Re-initiate treatment only upon physician approval. 2022 active 05/08 famotidine 10 MG/ML Injectable Solution intravenously 20.0 mg Re-initiate treatment only upon physician approval. 2022 active 05/08 diphenhydramine hydrochloride 0.5 MG/ML Injectable Solution intravenously 50.0 mg Re-initiate treatment only upon physician approval. 2022 active 05/08 1 ML epinephrine 1 MG/ML Injection intramuscularly 0.3 mg once Re-initiate treatment only upon physician approval. 2022 active 05/08 methylprednisolo ne 2000 MG Injection intravenously 125.0 mg Re-initiate treatment only upon physician approval. 2022 active 10/24 famotidine 10 MG/ML Injectable Solution intravenously 20.0 mg Re-initiate treatment only upon physician approval. 2021 active 10/24 1 ML epinephrine 1 MG/ML Injection intramuscularly 0.3 mg once Re-initiate treatment only upon physician approval. 2021 active 10/24 diphenhydramine hydrochloride 0.5 MG/ML Injectable Solution intravenously 50.0 mg Re-initiate treatment only upon physician approval. 2021 active 10/24 methylprednisolo ne 2000 MG Injection intravenously 125.0 mg Re-initiate treatment only upon physician approval. 2021 active 10/24 hydrocortisone 100 MG Injection intravenously 100.0 mg Re-initiate treatment only upon physician approval. 2021 active 03/27 famotidine 10 MG/ML Injectable Solution intravenously 20.0 mg Re-initiate treatment only upon physician approval. 2021 active 03/27 hydrocortisone 100 MG Injection intravenously 100.0 mg Re-initiate treatment only upon physician approval. 2021 active 03/27 diphenhydramine hydrochloride 0.5 MG/ML Injectable Solution intravenously 50.0 mg Re-initiate treatment only upon physician approval. 2021 active 03/27 1 ML epinephrine 1 MG/ML Injection intramuscularly 0.3 mg once Re-initiate treatment only upon physician approval. 2021 active 03/27 methylprednisolo ne 2000 MG Injection intravenously 125.0 mg Re-initiate treatment only upon physician approval. 2021 active 08/02 diphenhydramine hydrochloride 0.5 MG/ML Injectable Solution intravenously 50.0 mg Re-initiate treatment only upon physician approval. 2020 active 08/02 famotidine 10 MG/ML Injectable Solution intravenously 20.0 mg Re-initiate treatment only upon physician approval. 2020 active 08/02 1 ML epinephrine 1 MG/ML Injection intramuscularly 0.3 mg once Re-initiate treatment only upon physician approval. 2020 active 08/02 hydrocortisone 100 MG Injection intravenously 100.0 mg Re-initiate treatment only upon physician approval. 2020 active 08/02 methylprednisolo ne 2000 MG Injection intravenously 125.0 mg Re-initiate treatment only upon physician approval. 2020 active Problems Diagnosis Status Date of Diagnosi s Multiple joint pain (finding) Active Osteoporosis (disorder) Active Estrogen receptor positive status [ER+] Active Long-term current use of aromatase inhibitor (si tuation) Active Primary malignant neoplasm of female breast (dis order) Active 12/12/2015 Disorder of bone (disorder) Active Osteopenia (disorder) Active Dyspareunia (finding) Active Hypertensive disorder, systemic arterial (disord er) Active Hyperlipidemia (disorder) Active Postmenopausal state (finding) Active History of malignant neoplasm of breast (situati on) Active Vital Signs Date Type Value 12/11/2023 Body Temperature 97.40 12/11/2023 Heart Beat 45.00 12/11/2023 Respiratory Rate 16.00 12/11/2023 Oxygen Saturation 99.00 12/11/2023 BSA 1.87 12/11/2023 Pain Scale 3.00 12/11/2023 Weight 172.20 12/11/2023 Height 65.50 12/11/2023 BMI 28.22 12/11/2023 Intravascular Systolic 118 12/11/2023 Intravascular Diastolic 66 Notes Section * Med Onc Follow-up Note Patient Name: DOTTIE CASTRO Date Of : 1950 Today's Provider:?Zaid Motley MD Date of Service:?12/14/2024 Attending Physician:?Zaid Motley (Hematology/Oncology) Referring Provider: ? HEMATOLOGY/ MEDICAL ONCOLOGY FOLLOW UP VISIT Reason for Visit Here to discuss endocrine manipulation Assessment 1. Stage IA left-sided breast ??? 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 daily (plan for AI treatment thru Nov 2023) ?BCI done on tumor from 2016 shows no benefit??and risk of recurrence of 1.7% 2. Stage IB??right-sided breast cancer ???Diagnosed November 2018,??pT2 N0 M0, underwent right-sided mastectomy ???Grade 1, lobular cancer 2 x 1 cm?Images were reviewed and appears that her lesion was present from diagnosis, hence decision to continue current cares ?Patient has continued with??Anastrozole then Letrozole 3. Osteopenia and osteoporosis ???Most recently was on??Reclast and Prolia ??? Now on zoledronic acid 4.?? Hypercholesterolemia and??hypertension ??? On medication managed by PCP, breast cancer cannot interfering with the same Plan BREAST CA: 1.?Discontinued endocrine therapy 2. ??No mammogram bilateral mastectomy 3 she complained of some possible pain in her??axilla on exam no abnormality noted, imaging only inthe presence??of any??lumps or if pain persist. 4. ??Will discharge from oncological care OTHER: 1.?? Ongoing osteopenia which is stable, should follow-up with primary care physician or??endocrinology bone health clinic regarding the same as she is now off endocrine therapy 2. ??Follow-up with medical??occasion further conditions with primary care physician Advanced Care Planning Pain Scale on Today's Visit 0 Pain Plan on Today's Visit No pain plan indicated for today Smoking Status Smoking Tobacco : Never smoker; Smokeless Tobacco : Never used smokeless tobacco; Vaping : Never vaped Depression Screening Tool Status Was not screened Reason: Patient Refused; Screening Date: 12/11/2023 History of Present Illness This is a 65-year-old lady, with main risk factor of hormone replacement therapy for up to 10 yearsand postmenopausal state and also family history of breast cancer (to be documented later). Abnormality was identified on routine mammography. (all images personally reviewed) 12/02/2015: Screening mammogram showed BI-RADS category 0. Need additional information. Nodular area in the upper outer left breast, which is indeterminate. Small cluster of calcification in this area. 12/08/2015: Left breast diagnostic mammogram shows category IV. Two hypoechoic nodules in the left upper quadrant. At 1 o'clock, 4 cm from the nipple, is irregular hypoechoic mass measuring 1.2 x 0.6x 0.9; this should be in the area of screening to detect microcalcification. Further posterior, at the 11:30 position, 7 cm from the nipple, there is a similar hypoechoic nodule measuring 0.7 x 0.6 x0.5. Axilla shows no evidence of adenopathy. 12/12/2015: Both cancers were negative for HER-2; ratio of 1.2 and 1.1 respectively. Both cancers at 1 o'clock and 11:30 position, specimen A and B, were both 90% positive for ER, and MA positive also in specimen A at 50% and greater than 90% in specimen B. 12/22/2015: Bilateral breast MRI performed, which showed known biopsied malignancy at 1 o'clock and11:30; 1 o'clock 1.1 cm and 11:30 at 1 cm. 12/24/2015: Normal bone density reported. 01/05/2016: Final pathology shows three cancers. HER-2/mckay on the final cancer is reported as ratioof 1.2, and ER 75% and MA 75%. Three cancers were identified. Two tumors at 1 o'clock and one at 11:30 region. All were grade 1/3. Margins are negative, at least 1 cm from all margins. DCIS negative.DCIS was seen in the background, less than 1 cm. Third small incidental tumor of 0.2 cm was retested, as documented. So, [id number] (M0 clinically). had L mastectomy. Oncotype DX too ordered. This is showing a Recurrence Score of 12, risk of distant recurrence at 8%, with minimal separation of curves for tamoxifen and tamoxifen and chemotherapy arm. ER 9.6; MA score 7, positive; HER-2/mckay 9.2, negative. } Stage Ib pT2 N0 M0 grade 1 right-sided breast invasive lobular cancer 2 x 1 cm diagnosed in November2018 ???Images were reviewed and appears that her lesion was present from diagnosis ???Hence a decision was made to continue anastrozole CURRENT TREATMENT: Anastrozole initiated on 02/10/2016 to current. ??Took a brief break from anastrozole in March 2016 and resumed in April 2016-- then went to letrozole ( finished December 2023) 1 dose of Reclast 5 mg of zoledronic acid given August 2017 --??Now on zoledronic acid every 6 month, 5 doses done in nov 2023 --BCI shows no benefit of extended endocrine therapy, risk of recurrence at 1.7% Interval History Alone for the visit, doing well has no new symptoms to report.?? Patient in good spirits, denies any new symptoms to report.?? Overall doing well does not really notice any difference being off medication, no GI, symptoms, no unusual symptoms report, occasional pain that she has felt in her leftaxilla, not??persistent at all.?? Systemic symptoms Review of Systems Remaining 14 point comprehensive review of systems within normal limits. NCCN Distress Thermometer and Problem List were collected and documented in the patient chart.?? Remarkable symptoms and concerns were discussed with the patient.?? Any additional follow-up is indicated in the plan. Past Medical and Surgical History 1. ??Significant gluten sensitivity 2. ??Familial tremor for which she takes propanolol. 3. 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 PAST SURGICAL HISTORY: 1. Cervical conization in 1975 2. ??Appendectomy in 1977 3. ??Skin??biopsy in 2010 and 2014.?? Current Medications Medication List Name Date Amlodipine Oral 05/08/2023 Ketoconazole Topical Cream 2 % Turmeric (Curcumin) Oral 07/19/2021 Cholecalciferol Oral 07/19/2021 Trazodone Oral 07/19/2021 Zyrtec (Cetirizine Oral) 10/24/2022 B Complex-Vitamin B12 (Vitamin B Complex Oral Tablet) 07/19/2021 Rosuvastatin Calcium Oral 12/14/2024 Zinc Oral 07/19/2021 Propranolol Oral 06/05/2023 Lactase Oral 12/11/2023 Magnesium Glycinate Oral 07/19/2021 Letrozole Oral 06/07/2023 Probiotics Oral 07/19/2021 Allergies Dairy products, Quinolones, adhesive, gluten, levofloxacin and sulfalene Family History (As previous)?? Grandmother?breast cancer at 67. ???Paternal??aunt with breast cancer in her 50s. ???Paternal cousin,??Guera???breast cancer. ???three cousins in their 40s and 50s on the maternal side??with breast cancer (?). ???Alzheimer's disease in sister and her mother.?? Complete genetic testing done in [place] was negative. Social History She lives with her in [place], this is her 2nd marriage. ??They have 2 daughters and 5 grandchildren. One daughter lives??in [place] and the other lives in [place].?? The 1 daughter??is adopted from [place].?? 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 She has moved multiple times due to her husbands job.?? They have recently lived in [place] and [place], now living in [place].?? 12/14/2024: All OK at home _ busy with grandNovede Entertainmentds Vital Signs Blood pressure: 110/80, Pulse: 55, Temperature: 97.2 F, Respirations: 16, O2 sat: 97%, Pain Scale: 0, Height: 65.5 in, Weight: 180.8 lb, BSA: 1.91, BMI: 29.63 kg/m2 Covid-19 vaccine (Moderna) (08/02/2021), Elsewhere; Covid-19 vaccine (Moderna) (11/18/2020), Elsewhere; Covid-19 vaccine (Pfizer) (03/27/2022); Covid-19 vaccine (Pfizer) (10/24/2022); Flu vaccine - Adult (10/24/2022); Flu vaccine - Adult (07/19/2021), Elsewhere Performance Status ECOG or Karnofsky ECOG: Not recorded Karnofsky: Not recorded Physical Exam { {Neck: Supple, without masses, lymphadenopathy or tenderness. Respiratory: Normal respiratory effort. Lungs are clear with good breath sounds. Heart: RR without murmurs, rubs, or gallops. Abdomen: The abdomen was flat, soft and nontender without guarding rebound or masses. Nodes: no cervical, supraclavicular, axillary or inguinal adenopathy Extremities: Full ROM without limitation, deformity or edema. Breast: Left and right scar bilateral mastectomy healing well?} Genetics/Molecular/Biomarkers * Primary malignant neoplasm of female breast (disorder) ( Stage Date: 01/18/2016, Stage IA (Primary,Left breast upper-inner quadrant, T1c, pN0, M0, G1, ER Status: Positive, MA Status: Positive) Date of Dx:12/12/2015 Histopathologic Type: Ductal invasive carcinoma; Lymph- Vascular Invasion: Notpresent; Oncotype DX Result-Invasive Breast Cancer: Low risk; First record:01/18/2016 Last record:01/02/2018 Other Migrated ICD10: C50.212 , C50.919 ) Additional Labs, Imaging, and Other Studies Lab Results CBC LabResults 01/28/2024 12/19/2023 12/11/2023 05/08/2023 2 03/27/2022 CBC Chemistries LabResults 01/28/2024 12/19/2023 12/11/2023 05/08/2023 2 03/27/2022 Chemistries Glucose mg/dL 90 BUN mg/dL 13 Creatinine mg/dL 0.66 Creatinine, iSTAT mg/dL 0.8 0.8 0.6 0.6 Sodium mmol/L 142 Potassium mmol/L 4.2 Chloride mmol/L 107 CO2 mmol/L 28 Calcium mg/dL 9.9 Albumin g/dL 4.3 Total protein g/dL 6.6 Bilirubin, total mg/dL 0.4 Alkaline phosphatase U/L 84 AST/SGOT U/L 27 ALT/SGPT U/L 23 GFR estimate mL/min/1.73m2 77.2 77.5 94.8 95.1; 92.9 ? Surveys/Consents/Other Discussions Zaid Motley MD CC: ? Electronically signed by Zaid Motley MD 12/14/2024 11:52 [facility] * Med Onc Follow-up Note Patient Name: DOTTIE CASTRO Date Of : 1950 Today's Provider:?Zaid Motley MD Date of Service:?12/11/2023 Attending Physician:?Zaid Motley (Hematology/Oncology) Referring Provider: ? HEMATOLOGY/ MEDICAL ONCOLOGY FOLLOW UP VISIT Reason for Visit Here to discuss endocrine manipulation Assessment 1. Stage IA left-sided breast ??? 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 daily (plan for AI treatment thru Nov 2023) ?BCI done on tumor from 2015 shows no benefit??and risk of recurrence of 1.7% 2. Stage IB??right-sided breast cancer ???Diagnosed November 2018,??pT2 N0 M0, underwent right-sided mastectomy ???Grade 1, lobular cancer 2 x 1 cm?Images were reviewed and appears that her lesion was present from diagnosis, hence decision to continue current cares ?Patient has continued with??Anastrozole 3. Osteopenia and osteoporosis ???Most recently was on??Reclast and Prolia ??? Now on zoledronic acid 4.?? Hypercholesterolemia and??hypertension ??? On medication managed by PCP, breast cancer cannot interfering with the same Plan 1.?Complete exemestane when done with bottle then discontinue 2. ??Discontinue endocrine therapy, discussed BCI at length 3. ??Last dose of zoledronic acid today 4.?? Follow-up bone density scheduled 5. ??No mammogram bilateral mastectomy Advanced Care Planning Pain Scale on Today's Visit 3 Pain Plan on Today's Visit Date of Service: 12/11/2023 Pain Scale (0-10): 3 Pain Treatment Plan: Non-opioid analgesics or techniques Comment: Smoking Status Smoking Tobacco : Never smoker; Smokeless Tobacco : Never used smokeless tobacco; Vaping : Never vaped Depression Screening Tool Status Was not screened Reason: Patient Refused; Screening Date: 12/11/2023 History of Present Illness This is a 65-year-old lady, with main risk factor of hormone replacement therapy for up to 10 yearsand postmenopausal state and also family history of breast cancer (to be documented later). Abnormality was identified on routine mammography. (all images personally reviewed) 12/02/2015: Screening mammogram showed BI-RADS category 0. Need additional information. Nodular area in the upper outer left breast, which is indeterminate. Small cluster of calcification in this area. 12/08/2015: Left breast diagnostic mammogram shows category IV. Two hypoechoic nodules in the left upper quadrant. At 1 o'clock, 4 cm from the nipple, is irregular hypoechoic mass measuring 1.2 x 0.6x 0.9; this should be in the area of screening to detect microcalcification. Further posterior, at the 11:30 position, 7 cm from the nipple, there is a similar hypoechoic nodule measuring 0.7 x 0.6 x0.5. Axilla shows no evidence of adenopathy. 12/12/2015: Both cancers were negative for HER-2; ratio of 1.2 and 1.1 respectively. Both cancers at 1 o'clock and 11:30 position, specimen A and B, were both 90% positive for ER, and MA positive also in specimen A at 50% and greater than 90% in specimen B. 12/22/2015: Bilateral breast MRI performed, which showed known biopsied malignancy at 1 o'clock and11:30; 1 o'clock 1.1 cm and 11:30 at 1 cm. 12/24/2015: Normal bone density reported. 01/05/2016: Final pathology shows three cancers. HER-2/mckay on the final cancer is reported as ratioof 1.2, and ER 75% and MA 75%. Three cancers were identified. Two tumors at 1 o'clock and one at 11:30 region. All were grade 1/3. Margins are negative, at least 1 cm from all margins. DCIS negative.DCIS was seen in the background, less than 1 cm. Third small incidental tumor of 0.2 cm was retested, as documented. So, [id number] (M0 clinically). had L mastectomy. Oncotype DX too ordered. This is showing a Recurrence Score of 12, risk of distant recurrence at 8%, with minimal separation of curves for tamoxifen and tamoxifen and chemotherapy arm. ER 9.6; MA score 7, positive; HER-2/mckay 9.2, negative. } Stage Ib pT2 N0 M0 grade 1 right-sided breast invasive lobular cancer 2 x 1 cm diagnosed in November2018 ???Images were reviewed and appears that her lesion was present from diagnosis ???Hence a decision was made to continue anastrozole CURRENT TREATMENT: Anastrozole initiated on 02/10/2016 to current. ??Took a brief break from anastrozole in March 2016 and resumed in April 2016 1 dose of Reclast 5 mg of zoledronic acid given August 2017 --??Now on zoledronic acid every 6 month --BCI shows no benefit of extended endocrine therapy, risk of recurrence at 1.7% Interval History Alone for the visit, overall doing well??anxious to get off medication denies any GI, , mass??musculoskeletal, PALLIATIVE SENIOR NP symptoms, all aspects of history unchanged updated as appropriate, she does have joint pain, vaginal dryness decreased libido from the same Review of Systems Remaining 14 point comprehensive review of systems within normal limits. NCCN Distress Thermometer and Problem List were collected and documented in the patient chart.?? Remarkable symptoms and concerns were discussed with the patient.?? Any additional follow-up is indicated in the plan. Past Medical and Surgical History 1. ??Significant gluten sensitivity 2. ??Familial tremor for which she takes propanolol. 3. 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 PAST SURGICAL HISTORY: 1. Cervical conization in 1975 2. ??Appendectomy in 1977 3. ??Skin??biopsy in 2010 and 2014.?? Current Medications Medication List Name Date Ketoconazole Topical Cream 2 % Propranolol Oral 06/05/2023 Trazodone Oral 07/19/2021 Zinc Oral 07/19/2021 B Complex-Vitamin B12 (Vitamin B Complex Oral Tablet) 07/19/2021 Cholecalciferol Oral 07/19/2021 Letrozole Oral 06/07/2023 Probiotics Oral 07/19/2021 Rosuvastatin Calcium Oral 10/24/2022 Lactase Oral 12/11/2023 Turmeric (Curcumin) Oral 07/19/2021 Zyrtec (Cetirizine Oral) 10/24/2022 Amlodipine Oral 05/08/2023 Magnesium Glycinate Oral 07/19/2021 Allergies Dairy products, Quinolones, adhesive, gluten, levofloxacin and sulfalene Family History (As previous)?? Grandmother?breast cancer at 67. ???Paternal??aunt with breast cancer in her 50s. ???Paternal cousin,??Guera???breast cancer. ???three cousins in their 40s and 50s on the maternal side??with breast cancer (?). ???Alzheimer's disease in sister and her mother.?? Complete genetic testing done in [place] was negative. Social History She lives with her in [place], this is her 2nd marriage. ??They have 2 daughters and 5 grandchildren. One daughter lives??in [place] and the other lives in [place].?? The 1 daughter??is adopted from [place].?? 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 She has moved multiple times due to her husbands job.?? They have recently lived in [place] and [place], now living in [place].?? 12/11/2023:??No update Vital Signs Blood pressure: 118/66, Pulse: 45, Temperature: 97.4 F, Respirations: 16, O2 sat: 99%, Pain Scale: 3, Height: 65.5 in, Weight: 172.2 lb, BSA: 1.87, BMI: 28.22 kg/m2 Covid-19 vaccine (Moderna) (08/02/2021), Elsewhere; Covid-19 vaccine (Moderna) (11/18/2020), Elsewhere; Covid-19 vaccine (Pfizer) (03/27/2022); Covid-19 vaccine (Pfizer) (10/24/2022); Flu vaccine - Adult (07/19/2021), Elsewhere; Flu vaccine - Adult (10/24/2022) Performance Status ECOG or Karnofsky ECOG: Not recorded Karnofsky: Not recorded Physical Exam {Neck: Supple, without masses, lymphadenopathy or tenderness. Respiratory: Normal respiratory effort. Lungs are clear with good breath sounds. Heart: RR without murmurs, rubs, or gallops. Abdomen: The abdomen was flat, soft and nontender without guarding rebound or masses. Nodes: no cervical, supraclavicular, axillary or inguinal adenopathy Extremities: Full ROM without limitation, deformity or edema. Breast: Left and right scar bilateral mastectomy healing well?? } Genetics/Molecular/Biomarkers * Primary malignant neoplasm of female breast (disorder) ( Stage Date: 01/18/2016, Stage IA (Primary,Left breast upper-inner quadrant, T1c, pN0, M0, G1, ER Status: Positive, MA Status: Positive) Date of Dx:12/12/2015 Histopathologic Type: Ductal invasive carcinoma; Lymph- Vascular Invasion: Notpresent; Oncotype DX Result-Invasive Breast Cancer: Low risk; First record:01/18/2016 Last record:01/02/2018 Other Migrated ICD10: C50.212 , C50.919 ) Additional Labs, Imaging, and Other Studies Lab Results CBC LabResults 12/11/2023 05/08/2023 10/24/2022 03/27/2022 01/05/2021 CBC Chemistries LabResults 12/11/2023 05/08/2023 10/24/2022 03/27/2022 01/05/2021 Chemistries Glucose mg/dL 90 BUN mg/dL 13 Creatinine mg/dL 0.66 Creatinine, iSTAT mg/dL 0.8 0.8 0.6 0.6 0.7 Sodium mmol/L 142 Potassium mmol/L 4.2 Chloride mmol/L 107 CO2 mmol/L 28 Calcium mg/dL 9.9 Albumin g/dL 4.3 Total protein g/dL 6.6 Bilirubin, total mg/dL 0.4 Alkaline phosphatase U/L 84 AST/SGOT U/L 27 ALT/SGPT U/L 23 GFR estimate mL/min/1.73m2 77.2 77.5 94.8 95.1; 92.9 86.7 ? Surveys/Consents/Other Discussions Total time 30 minutes,??specifically reviewing BCI test,??remainder time reviewing chart, documentation, 17 minutes in room Zaid Motley MD CC: ? Electronically signed by Zaid Motley MD 12/11/2023 17:15 FABRICATION DEPARTMENT SUPERVISOR
--- OUTSIDE RECORDS SUMMARY | 2025-01-11 09:31 | XMS_ITS | Encounter Summary ---
Author Organization [place] Address [address] [place] [address]. [place] [address] Care Team Providers Care Bung Dropper Name Role Phone Clinic, [facility] Primary Care Pr ovider Unavailable Lisette Olmstead PA-C Unavailable Lisette Olmstead PA-C Unavailable Brenda Benoit MD Primary Care Provider Lisette Olmstead PA-C Unavailable [phone] Lisette Olmstead-C Unavailable [phone] Reason for Visit * Reason Onset Date Comments Patient Request 09/26/2022 Encounter Details Date Type Department Care Team (Late st Contact Info) Description 09/26/[address] [facility] Urology Clinic [address] [place] [address] Lisette Olmstead PA-C [address] [facility] [address] [place], [place] [id number] Patient Request Social History Tobacco Use Types Packs/Day Years Used Date Smoking Tobacco: Never Smokeless Tobacco: Never Alcohol Use Standard Drinks/Week Comments Yes 0 (1 standard drink = 0.6 oz pur e alcohol) 2-3 glasses of wine/week PHQ-2 Answer Date Recorded PHQ-2 Score 0 11/25/2018 Comments No Sex and Gender Information Value Date Recorded Sex Assigned at Female 12/07/2021 7:51 AM STEEL WOOL MACHINE 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 Unable to assess 09/26/2022 2:54 PM STEEL WOOL MACHINE OPERATOR documented as of this encounter Miscellaneous Notes * Telephone Encounter - Alyssa Hyman - 09/26/2022 3:09 PM CST [facility] Phone Message May a detailed message be left on voicemail: yes Reason for Call: Patient is wondering if she can get a 24 hr urine test before her appt with Lisette in Dec. Please reach out to patient to discuss. Thank you Action Taken: Message routed to: [facility] Uro Travel Screening: Not Applicable L WOOL MACHINE OPERATOR documented in this encounter Plan of Treatment Upcoming Encounters Date Type Department Care Team (Late st Contact Info) Description 03/22/2025 3:00 PM CDT Virtual Visit [facility] Urology Clinic [address] [place] [address] Lisette Olmstead PA-C [address] [facility] [address] [place] [address] documented as of this encounter Visit Diagnoses Not on filedocumented in this encounter Care Teams Bung Dropper Relationship Specialty Start Date End Date [facility] PCP - General 11/07/21 02/22/23 Brenda Benoit MD [address] [place] [address] PCP - General Family Medicine 09/27/23 Lisette Olmstead PA-C [address] [place] [address] Physician Outside Sales Urology 11/17/21 Lisette Olmstead PA-C [address] [place] [address] Assigned Surgical Provider 12/10/21 Lisette Olmstead PA-C [address] [place] [address] Physician Outside Sales Urology 10/08/24 Lisette Olmstead PA-C [address] [place] [address] Physician Outside Sales Urology 12/28/24 documented as of this encounter
--- OUTSIDE RECORDS SUMMARY | 2025-01-11 09:32 | XMS_ITS | Encounter Summary ---
Author Organization [facility] Address [address] [place] [address] Care Team Providers Care Strategic Solutions Consultant Name Role Phone Michael Murphy MD Primary Care Provider Michael Murphy MD Unavailable [phone] Adry Wang-C Unavailable [phone] Adry Wang PA-C Unavailable [phone] Michael Murphy MD Unavailable [phone] Shirley Galindo-C Unavailable [phone] Adry Wang-C Unavailable [phone] [facility] Primary Care Pr ovider Unavailable Lisette Olmstead-Fina Unavailable [phone] Listete Olmstead-Fina Unavailable [phone] Brenda Benoit MD Primary Care Provider Lisette Olmstead PA-C Unavailable [phone] Lisette Olmstead PA-C Unavailable +[phone]- Reason for Visit * Reason Onset Date Comments Refill Request 04/04/2015 azithromycin (ZI THROMAX) 250 MG tablet Encounter Details Date Type Department Care Team (Late st Contact Info) Description 04/04/[address] [phone] [place] [address] [place] [address] Refill Request (azithromycin (ZITHROMAX) 250 MG tablet) Social History Tobacco Use Types Packs/Day Years Used Date Smoking Tobacco: Never Smokeless Tobacco: Never Alcohol Use Standard Drinks/Week Comments Yes 0 (1 standard drink = 0.6 oz pur e alcohol) seldom Comments No Sex and Gender Information Value Date Recorded Sex Assigned at Female 12/07/2021 7:51 AM POWER LINEMAN TECHNICIAN Legal Sex Female 3:22 AM POWER LINEMAN TECHNICIAN Gender Identity Female 12/07/2021 7:51 AM POWER LINEMAN TECHNICIAN Sexual Orientation Not on file 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 Fever: no ?? Chills/Sweats: no ?? Headache (location?): no ?? Sinus Pressure:no ?? Conjunctivitis: no ?? Ear Pain: no ?? Rhinorrhea: no ?? Congestion: YES pt has runny nose and congested in chest, pressure ?? Sore Throat: YES from coughing ?? Cough: YES-productive of yellow sputum and pt is kept up at night with coughing ?? Wheeze: no ?? Decreased Appetite: no ?? Nausea: no ?? Vomiting: no ?? Diarrhea: no ?? Dysuria/Freq.: no ?? Fatigue/Achiness: no ?? 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 JV advised that this may be viral for the patient. The patient indicates understanding of these issues and agrees with the plan. Dixie Contreras, RN * Telephone Encounter - Kortney Becerra - 04/04/2015 2:39 PM CDT azithromycin (ZITHROMAX) 250 MG tablet Last Written Prescription Date: 03/19/15 Last Fill Quantity: 6, # refills: 0 [address] Visit with [facility] primary care provider: 03/19/15 Future Office visit: Routing refill request to provider for review/approval because: Drug not on the [facility] refill protocol or controlled substance Patient is still not feeling better, was told to call back by PCP. Kortney NICHOLSON documented in this encounter Plan of Treatment Upcoming Encounters Date Type Department Care Team (Late st Contact Info) Description 03/22/2025 3:00 PM CDT Virtual Visit [facility] Urology Clinic [address] [place] [address] Lisette Olmstead PA-C [address] [id number] documented as of this encounter Visit Diagnoses Diagnosis Acute sinusitis with symptoms > 10 days- Primary Acute sinusitis, unspecified Cough documented in this encounter Care Teams Strategic Solutions Consultant Relationship Specialty Start Date End Date Michael Murphy MD [address] [place] [phone] PCP - General 05/24/03 11/06/21 Michael Murphy MD [address] [place] [address] PCP - Assigned PCP 12/30/08 10/18/18 Adry Wang PA-C [address] [place] [address] [place] [address] PCP - Assigned PCP 10/19/18 01/20/[address] [address] PCP - General 11/07/21 02/22/23 Brenda Benoit MD [address] [place] [address] PCP - General Family Medicine 09/27/23 Adry Wang PA-C [address] [place] [address] [place] [address] Assigned PCP 10/19/18 03/21/19 Michael Murphy MD [address] [place] [address] Assigned PCP 03/22/19 10/15/20 Shirley Galindo PA-C [address] [place] [address] Assigned PCP 10/16/20 02/18/21 Adry Wang PA-C [address] [place] [address] [place] [address] Assigned PCP 02/19/21 03/25/21 Lisette Olmstead PA-C [address] [place] [address] Physician Oil Well Directional Surveyor Urology 11/17/21 Lisette Olmstead PA-C [address] [place] [address] Assigned Surgical Provider 12/10/21 Lisette Olmstead PA-C [address] [place] [address] Physician Oil Well Directional Surveyor Urology 10/08/24 Lisette Olmstead PA-C [address] [place] [address] Physician Oil Well Directional Surveyor Urology 12/28/24 documented as of this encounter
--- OUTSIDE RECORDS SUMMARY | 2025-01-11 09:32 | XMS_ITS ---
Author Name Interface, [id number] [facility] Address [address] [facility] [address] [place] [address] Organization [facility] Address [address] [facility] [address] [place] [address] Care Team Providers Care Derrick Boat Lever Operator Name Role Phone Zaid Motley Unavailable Unavailable Allergies and Adverse Reactions Medication/Group Name Reaction Severity Date Dairy products 12/14/2024 gluten 12/14/2024 adhesive Rash 12/14/2024 levofloxacin no mappable FDB reaction Quinolones no mappable FDB reaction sulfalene 12/14/2024 Plan Date Type Value 12/14/2024 APPOINTMENT OV 20 MIN Reason for Visit OV 20 MIN Encounters Date Name 12/14/2024 History of malignant neoplasm of breast (situation) 12/14/2024 Hyperlipidemia (diso rder) 12/14/2024 Hypertensive disorde r, systemic arterial (disorder) 12/14/2024 Long-term current us e of aromatase inhibitor (situation) 12/14/2024 Osteopenia (disorder ) 12/14/2024 Postmenopausal state (finding) Medications Date Name Route Dose Frequency Instructions [...] malignant neoplasm of breast (situati on) Active Notes Section * Med Onc Follow-up Note Patient Name: DOTTIE CASTRO Date Of : 1950 Today's Provider:?Zaid Motley MD Date of Service:?12/14/2024 Attending Physician:?Zaid Motley (Hematology/Oncology) Referring Provider: ? HEMATOLOGY/ MEDICAL ONCOLOGY FOLLOW UP VISIT Reason for Visit Here to discuss endocrine manipulation Assessment 1. Stage IA left-sided breast ??? 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 12/22/2015: Bilateral breast MRI performed, which showed known biopsied malignancy at 1 o'clock and11:30; 1 o'clock 1.1 cm and 11:30 at 1 cm. 12/24/2015: Normal bone density reported. 01/05/2016: Final pathology shows three cancers. HER-2/mckay on the final cancer is reported as ratioof 1.2, and ER 75% and WA 75%. Three cancers were identified. Two tumors at 1 o'clock and one at 11:30 region. All were grade 1/3. Margins are negative, at least 1 cm from all margins. DCIS negative.DCIS was seen in the background, less than 1 cm. Third small incidental tumor of 0.2 cm was retested, as documented. So, [id number] (M0 clinically). had L mastectomy. Oncotype DX too ordered. This is showing a Recurrence Score of 12, risk of distant recurrence at 8%, with minimal separation of curves for tamoxifen and tamoxifen and chemotherapy arm. ER 9.6; WA score 7, positive; HER-2/mckay 9.2, negative. } [...] her mother.?? Complete genetic testing done in [place] was negative. Social History She lives with her in [place], this is her 2nd marriage. ??They have 2 daughters and 5 grandchildren. One daughter lives??in [place] and the other lives in [place].?? The 1 daughter??is adopted from [place].?? 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 She has moved multiple times due to her husbands job.?? They have recently lived in [place] and [place], now living in [place].?? 12/14/2024: All OK at home _ busy with grandkids Vital Signs Blood pressure: 110/80, Pulse: 55, [...] T1c, pN0, M0, G1, ER Status: Positive, WA Status: Positive) Date of Dx:12/12/2015 Histopathologic Type: [...] signed by Zaid Motley MD 12/14/2024 11:52 DERRICK BOAT CAPTAIN
--- OUTSIDE RECORDS SUMMARY | 2025-01-11 09:32 | XMS_ITS | CCD ---
Author Name Interface, [id number] lity Address [address] [facility] [address] [address] Organization [facility] Address [address] [facility] [address] [address] Care Team Providers Care Frozen Food Department Manager Name Role Phone Zaid Motley Unavailable Unavailable Care Plan Date Type Value 12/14/2024 APPOINTMENT OV 20 MIN 10/28/2024 APPOINTMENT OUTSIDE TEST 5 M IN 07/19/2021 LABORDER DEXA scan 03/27/2022 LABORDER CMP 05/08/2023 LABORDER Genetics miscell aneous panel 10/28/2024 LABORDER DEXA scan Reason for Visit OV 20 MIN Encounters Date Name 12/14/2024 Primary malignant ne oplasm of female breast (disorder) 12/14/2024 Osteopenia (disorder ) 12/14/2024 Hyperlipidemia (diso rder) 12/14/2024 Postmenopausal state (finding) 12/14/2024 History of malignant neoplasm of breast (situation) 12/14/2024 Hypertensive disorde r, systemic arterial (disorder) 12/14/2024 Long-term current us e of aromatase inhibitor (situation) Diagnostic Results Date Type Test Units Lower Limit Upper Limit Result Flag Comments Status Ordered By Specimen Source Lab Address 01/27 Misc other lab See protector plate attacher d Medications Date Name Route Dose Frequency Instructions Start Date End Date Status Turmeric (Curcumin) Oral 2.0 daily active Cetirizine Oral daily active Trazodone Oral 3.0 qhs ac tive Magnesium Glycinate Oral 2.0 daily activ e Melatonin Oral daily st opped Denosumab Subcutaneous (60 mg/mL - Prolia) stopped Rosuvastatin Calcium Oral daily active Ketoconazole Topical Cream 2 % prn active Cholecalcifero l Oral daily active Lactase Oral PRN acti ve Vitamin B Complex Oral Tablet daily active Propranolol Oral BID active Calcium Citrate-Vitami n D3 Oral 315 mg-6.25 mcg (250 unit) daily 650mg stopped Probiotics Oral daily active Amlodipine Oral daily active Anastrozole Oral daily stopped Zinc Oral daily active 05/27 1 ML epinephrine 1 MG/ML Injection intramuscularly 0.3 mg once Re-initiate treatment only upon physician approval. 2023 active 05/27 Zoledronic Acid IV (Zometa) intravenously 4.0 mg once 2023 active 05/27 hydrocortisone 100 MG Injection intravenously 100.0 mg Re-initiate treatment only upon physician approval. 2023 active 05/27 famotidine 10 MG/ML Injectable Solution intravenously 20.0 mg Re-initiate treatment only upon physician approval. 2023 active 05/27 methylpredniso lone 2000 MG Injection intravenously 125.0 mg Re-initiate treatment only upon physician approval. 2023 active 05/27 diphenhydramin e hydrochloride 0.5 MG/ML Injectable Solution intravenously 50.0 mg Re-initiate treatment only upon physician approval. 2023 active 01/02 Lactobacillus Acidophilus Oral Capsule PO 1.0 CAPSULE( S) as directed 01/02 inactive 01/02 Cyanocobalamin Oral PO 1.0 TABLET(S ) as directed 01/02 inactive 01/02 Diphenhydramin e Oral PO 1.0 CAPSULE( S) as directed 01/02 inactive 01/02 Ascorbic Acid Oral PO 1.0 TABLET(S ) daily 01/02 inactive 01/02 Magnesium Glycinate Oral PO 1.0 TABLET(S ) daily 01/02 inactive 01/02 [place] 3 Fatty Acids-Fish Oil Oral 684 mg-1,200 mg PO 1.0 CAPSULE( S), ENTERIC COATED daily 01/02 inactive 01/02 Miscellaneous Drug PO 1.0 CAPSULE( S) daily 01/02 inactive 01/02 Turmeric (Curcumin) Oral PO 1.0 CAPSULE( S) daily 1330mg 01/02 inactive 01/02 Vitamin B Complex Oral Tablet PO 1.0 TABLET(S ) daily 01/02 inactive 01/02 Miscellaneous Drug 1 PO 1.0 CAPSULE( S) as directed Valerian 470mcg daily 01/02 inactive 01/02 Cholecalcifero l Oral PO 1.0 TABLET(S ) daily 01/02 inactive 01/02 Aspirin Oral PO 1.0 TABLET(S ) daily 01/02 inactive 01/02 Melatonin Oral PO 2.0 TABLET(S ) daily time released 01/02 inactive 01/02 Propranolol Oral PO 1.0 TABLET(S ) daily 01/02 inactive 06/15 Miscellaneous Drug PO 1.0 TABLET(S ) Daily [employer]- DHA Omega3 06/15 inactive Problems Diagnosis Status Date of Diagnosi s Multiple joint pain (finding) Active Osteoporosis (disorder) Active Estrogen receptor positive status [ER+] Active Body mass index (BMI) 26.0-26.9, adult Inactive Body mass index (BMI) 25.0-25.9, adult Inactive Long-term current use of aromatase inhibitor (si tuation) Active Disorder of bone (disorder) Active Osteopenia (disorder) Active Dyspareunia (finding) Active Hypertensive disorder, systemic arterial (disord er) Active Hyperlipidemia (disorder) Active Postmenopausal state (finding) Active History of malignant neoplasm of breast (situati on) Active Procedures Date Category Name Instructions Status 10/28/2024 Physician Order DEXA scan [facility] Ordered 12/11/2024 Physician Order RTC MD/EXTENSION EDUCATOR Ordered 12/14/2024 Physician Order RTC MD Ordered Social History Date Name Value 12/14/2024 Sex Female Vital Signs Date Type Value 12/14/2024 Height 65.50 12/14/2024 Weight 180.80 12/14/2024 Intravascular Systolic 110 12/14/2024 Intravascular Diastolic 80 12/14/2024 Respiratory Rate 16.00 12/14/2024 Heart Beat 55.00 12/14/2024 Body Temperature 97.20 12/14/2024 Pain Scale 0.00 12/14/2024 Oxygen Saturation 97.00 12/14/2024 BMI 29.63
--- OUTSIDE RECORDS SUMMARY | 2025-01-11 09:32 | XMS_ITS | Encounter Summary ---
Author Organization [facility] Address [address] [place] [address] Care Team Providers Care Brick Or Block Maker Name Role Phone Michael Murphy MD Primary Care Provider [phone] Michael Murphy MD Unavailable [phone] Adry Wang-C Unavailable [phone] Adry Wang-C Unavailable [phone] Michael Murphy MD Unavailable [phone] Shirley Galindo-C Unavailable [phone] Adry Wang-C Unavailable [phone] [facility] Primary Care Pr ovider Unavailable Lisette Olmstead-C Unavailable +1- Lisette Olmstead-C Unavailable [phone] Brenda Benoit MD Primary Care Provider [phone] Lisette OlmsteadC Unavailable [phone] Lisette Olmstead-C Unavailable +1- Encounter Details Date Type Department Care Team (Late st Contact Info) Description 10/18/2012 [facility] [address] [place] [place] [place] [phone] Michael Murphy MD [address] [place] [id number] Social History Tobacco Use Types Packs/Day Years Used Date Smoking Tobacco: Never Smokeless Tobacco: Never Alcohol Use Standard Drinks/Week Comments Yes 0 (1 standard drink = 0.6 oz pur e alcohol) occasional Comments No Sex and Gender Information Value Date Recorded Sex Assigned at Female 12/07/2021 7:51 AM HEAD MVA REACTOR OPERATOR Legal Sex Female 3:22 AM HEAD MVA REACTOR OPERATOR Gender Identity Female 12/07/2021 7:51 AM HEAD MVA REACTOR OPERATOR Sexual Orientation Not on file documented as of this encounter Plan of Treatment Upcoming Encounters Date Type Department Care Team (Late st Contact Info) Description 03/22/2025 3:00 PM CDT Virtual Visit [facility] Urology Clinic [address] [place] [phone] Lisette Olmstead PA-C [address] [address] documented as of this encounter Visit Diagnoses Not on filedocumented in this encounter Care Teams Brick Or Block Maker Relationship Specialty Start Date End Date Michael Murphy MD [address] [place] [id number] PCP - General 05/24/03 11/06/21 Michael Murphy MD [address] [place] [address] PCP - Assigned PCP 12/30/08 10/18/18 Adry Wang PA-C [address] [place] [address] PCP - Assigned PCP 10/19/18 01/20/19 [facility], [address] [address] PCP - General 11/07/21 02/22/23 Brenda Benoit MD [address] [place] [address] [place] [address] PCP - General Family Medicine 09/27/23 Adry Wang PA-C [address] [place] [address] [place] [address] Assigned PCP 10/19/18 03/21/19 Michael Murphy MD [address] [place] [address] Assigned PCP 03/22/19 10/15/20 Shirley Galindo PA-C [address] [place] [address] Assigned PCP 10/16/20 02/18/21 Adry Wang PA-C [address] [place] [address] [place] [address] Assigned PCP 02/19/21 03/25/21 Lisette Olmstead PA-C [address] [place] [address] Physician Plastic Boat Buffer Urology 11/17/21 Lisette Olmstead PA-C [address] [place] [address] Assigned Surgical Provider 12/10/21 Lisette Olmstead PA-C [address] [place] [address] Physician Plastic Boat Buffer Urology 10/08/24 Lisette Olmstead PA-C [address] [place] [address] Physician Plastic Boat Buffer Urology 12/28/24 documented as of this encounter
--- OUTSIDE RECORDS SUMMARY | 2025-01-11 09:32 | XMS_ITS ---
Author Name Interface, [id number] lity Address [address] [address] [facility] Address [address] [facility] [facility] [address] [address] Care Team Providers Care Experience Design Director Name Role Phone Ramon Josselyn Unavailable Unavailable Allergies and Adverse Reactions Medication/Group Name Reaction Severity Date Dairy products 12/14/2024 gluten 12/14/2024 adhesive Rash 12/14/2024 levofloxacin no mappable FDB reaction Quinolones no mappable FDB reaction sulfalene 12/14/2024 Plan Date Type Value 12/14/2024 APPOINTMENT OV 20 MIN 10/28/2024 APPOINTMENT OUTSIDE TEST 5 M IN 12/11/2023 APPOINTMENT TREATMENT 1 HR 12/11/2023 APPOINTMENT OV 20 MIN 12/11/2023 APPOINTMENT LAB 15 MIN 06/05/2023 APPOINTMENT OV 30 MIN 12/11/2023 LABORDER iSTAT creatinine panel 10/28/2024 LABORDER DEXA scan Reason for Visit OV 20 MIN Encounters Date Name 06/05/2023 Estrogen receptor po sitive status [ER+] 06/05/2023 History of malignant neoplasm of breast (situation) 06/05/2023 Hyperlipidemia (diso rder) 06/05/2023 Hypertensive disorde r, systemic arterial (disorder) 06/05/2023 Long-term current us e of aromatase inhibitor (situation) 06/05/2023 Multiple joint pain (finding) 06/05/2023 Postmenopausal state (finding) 06/05/2023 Primary malignant ne oplasm of female breast (disorder) Diagnostic Results Date Type Test Units Lower Limit Upper Limit Result Flag Comments Status Ordered By Specimen Source Lab Address 12/11 iSTAT creat inine panel Creat inine , iSTAT mg/dl 0.6 1.3 0.8 [facility] [place], [address] [facility] [place] [phone] Phone: () - 12/11 iSTAT creat inine panel GFR estim ate ml/min /1.73m ^2 77.2 GFR is calculate d using the CKD-EPI equation. FINAL [facility] [place], [address] [facility] [phone] Phone: () - 12/19 [facility] other lab See buggy driver d 01/27 [facility] other lab See buggy driver d Medications Date Name Route Dose Frequency [...] treatment only upon physician approval. 2021 active 12/07 /2022 methylprednisolo ne 2000 MG Injection intravenously 125.0 [...] on) Active Vital Signs Date Type Value 06/05/2023 Oxygen Saturation 98.00 06/05/2023 Respiratory Rate 18.00 06/05/2023 Heart Beat 50.00 06/05/2023 Body Temperature 97.70 06/05/2023 BSA 1.86 06/05/2023 Pain Scale 0.00 06/05/2023 Weight 171.10 06/05/2023 Height 65.50 06/05/2023 BMI 28.04 06/05/2023 Intravascular Systolic 122 06/05/2023 Intravascular Diastolic 80 12/11/2023 Oxygen Saturation 99.00 12/11/2023 Respiratory Rate 16.00 12/11/2023 Heart Beat 45.00 12/11/2023 Body Temperature 97.40 12/11/2023 Intravascular Systolic 118 12/11/2023 Intravascular Diastolic 66 12/11/2023 BSA 1.87 12/11/2023 BMI 28.22 12/11/2023 Height 65.50 12/11/2023 Weight 172.20 12/11/2023 Pain Scale 3.00 12/14/2024 Body Temperature 97.20 12/14/2024 Heart Beat 55.00 12/14/2024 Respiratory Rate 16.00 12/14/2024 Oxygen Saturation 97.00 12/14/2024 BSA 1.91 12/14/2024 Height 65.50 12/14/2024 Weight 180.80 12/14/2024 Pain Scale 0.00 12/14/2024 Intravascular Systolic 110 12/14/2024 Intravascular Diastolic 80 12/14/2024 BMI 29.63 Notes Section * Med Onc Follow-up Note Patient Name: DOTTIE CASTRO? Date Of : 1950? Today's Provider:?Josselyn Navarro RN, CREATIVE WRITING TEACHER, MA, AOCN Date of Service:?06/05/2023? Attending Physician:?Zaid Motley (Hematology/Oncology) Referring Provider:? HEMATOLOGY/ MEDICAL ONCOLOGY FOLLOW UP VISIT Reason for Visit Interim visit to evaluate leg pain??most likely related to anastrozole Assessment 1. Stage IA left-sided breast ??? 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 daily (plan for AI treatment thru Nov 2023) ???(06/05/2023) breast cancer index - pending 2. Stage IB??right-sided breast cancer ???Diagnosed November 2018,??pT2 N0 M0 ???Grade 1, lobular cancer 2 x 1 cm?Images were reviewed and appears that her lesion was present from diagnosis, hence decision to continue current cares ?Patient has continued with??Anastrozole 3. Osteopenia and osteoporosis ???Most recently was on??Reclast and Prolia ??? Now on zoledronic acid Plan 1.?With pain resolving, will try a different AI, Exemestane 2.?? Rama,??RN to call patient in 2 weeks to see how she is tolerating exemestane 3.?? Breast Cancer Index - pending 4.?Follow-up with Dr. Motley in November with??Zometa 5.?Patient questions about her diagnosis of breast cancer, recurrence, risk factors and etc. ??Ianswered her questions to the best of my abilities Advanced Care Planning Pain Scale on Today's Visit 0 Pain Plan on Today's Visit Date of Service: 06/05/2023 Pain Scale (0-10): 0 Pain Treatment Plan: No pain reported Comment: Smoking Status Smoking Tobacco : Never smoker; Smokeless Tobacco : Never used smokeless tobacco; Vaping : Never vaped Depression Screening Tool Status Was screened; Outcome positive: No; Screening Date: 05/08/2023; Screening Tool: PRIME MD-PHQ2; Total depression score: 0 History of Present Illness This is a [...] were both 90% positive for ER, and AK positive also in specimen A at 50% and greater than 90% in specimen B. 12/22/2015: Bilateral breast MRI performed, which showed known biopsied malignancy at 1 o'clock and11:30; 1 o'clock 1.1 cm and 11:30 at 1 cm. 12/24/2015: Normal bone density reported. 01/05/2016: Final pathology shows three cancers. HER-2/mckay on the final cancer is reported as ratioof 1.2, and ER 75% and AK 75%. Three cancers were identified. Two tumors at 1 o'clock and one at 11:30 region. All were grade 1/3. Margins are negative, at least 1 cm from all margins. DCIS negative.DCIS was seen in the background, less than 1 cm. Third small incidental tumor of 0.2 cm was retested, as documented. So, [id number] (M0 clinically). had L mastectomy. Oncotype DX too ordered. This is showing a Recurrence Score of 12, risk of distant recurrence at 8%, with minimal separation of curves for tamoxifen and tamoxifen and chemotherapy arm. ER 9.6; AK score 7, positive; HER-2/mckay 9.2, negative. } [...] --??Now on zoledronic acid every 6 month Interval History Patient has been on anastrozole since 2015.?? It was not??until January that she started noticing??pain in her hips and??legs.?? After holding anastrozole for 1 week,??pain resolved.?? Prior to that, she had seen her PCP and had an x-ray??as she was worried about recurrent breast cancer, metastasizing to the bones. 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 Fortunately, the x-ray??showed degeneration and no??fractures??or osseous mets. She has undergone bilateral??mastectomy no changes to the chest wall or enlarged lymph nodes.?? Review of Systems Remaining 14 point comprehensive [...] 2014.?? Current Medications Medication List Name Date Cholecalciferol Oral 07/19/2021 Propranolol Oral 06/05/2023 Zinc Oral 07/19/2021 B Complex-Vitamin B12 (Vitamin B Complex Oral Tablet) 07/19/2021 Magnesium Glycinate Oral 07/19/2021 Rosuvastatin Calcium Oral 10/24/2022 Probiotics Oral 07/19/2021 Trazodone Oral 07/19/2021 Ketoconazole Topical Cream 2 % Turmeric (Curcumin) Oral 07/19/2021 Amlodipine Oral 05/08/2023 Zyrtec (Cetirizine Oral) 10/24/2022 Exemestane Oral 06/05/2023 Allergies Dairy products, Quinolones, adhesive, gluten, levofloxacin and sulfalene Family History (As previous)?? Grandmother?breast cancer at 67. ???Paternal??aunt with breast cancer in her 50s. ???Paternal cousin,??Guera???breast cancer. ???three cousins in their 40s and 50s on the maternal side??with breast cancer (?). ???Alzheimer's disease in sister and her mother.?? Complete genetic testing done in [place] was negative. Social History She lives with her in [place], this is her 2nd marriage. ??They have 2 daughters and 5 grandchildren. One daughter lives??in [place] and the other lives in [place].?? The 1 daughter??is adopted from [place].?? 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 She has moved multiple times due to her husbands job.?? They have recently lived in [place] and [place], now living in [place].?? Vital Signs Blood pressure: 122/80, Pulse: 50, Temperature: 97.7 F, Respirations: 18, O2 sat: 98%, Pain Scale: 0, Height: 65.5 in, Weight: 171.1 lb, BSA: 1.86, BMI: 28.04 kg/m2 Covid-19 vaccine (Moderna) (08/02/2021), Elsewhere; Covid-19 vaccine (Moderna) (11/18/2020), Elsewhere; Covid-19 vaccine (Pfizer) (03/27/2022); Covid-19 vaccine (Pfizer) (10/24/2022); Flu vaccine - Adult (10/24/2022); Flu vaccine - Adult (07/19/2021), Elsewhere Performance Status ECOG or Karnofsky ECOG: Not recorded Karnofsky:?Not recorded Physical Exam GENERAL: Pleasant female in no acute distress.?? Independently.?? Able to get on and off the exam table independently GASPER:??Pupils equal, round, reactive to light. ??Conjunctive are clear. ??Extraocular movement intact.? LYMPH:??No cervical, supraclavicular or axillary lymphadenopathy CV:??Regular rate and rhythm. ??No murmurs or gallops noted. ??No peripheral edema. RESP:??Patient does not appear short of breath with conversation. ??Lungs are clear to auscultation BREAST:??Bilateral breast have been surgically removed, no reconstruction. ??No evidence for disease recurrence MSK:??No pain with palpation of the lumbar spine,??SI joint, pelvis or hips.?? Internal and external rotation of the hips without pain, good range of motion. ??Lower extremities strong and equal Genetics/Molecular/Biomarkers * Primary malignant neoplasm of female breast (disorder) ( Stage Date: 01/18/2016, Stage IA (Primary,Left breast upper-inner quadrant, T1c, pN0, M0, G1, ER Status: Positive, AK Status: Positive) Date of Dx:12/12/2015 Histopathologic Type: Ductal invasive carcinoma; Lymph- Vascular Invasion: Notpresent; Oncotype DX Result-Invasive Breast Cancer: Low risk; First record:01/18/2016 Last record:01/02/2018 Other Migrated ICD10: C50.212 , C50.919 ) Additional Labs, Imaging, and Other Studies Lab Results CBC LabResults 05/08/2023 10/24/2022 03/27/2022 08/02/2021 1 07/05/2020 CBC Chemistries LabResults 05/08/2023 10/24/2022 03/27/2022 08/02/2021 1 07/05/2020 Chemistries Glucose mg/dL 90 BUN mg/dL 13 Creatinine mg/dL 0.66 Creatinine, iSTAT mg/dL 0.8 0.6 0.6 0.7 Sodium mmol/L 142 Potassium mmol/L 4.2 Chloride mmol/L 107 CO2 mmol/L 28 Calcium mg/dL 9.9 Albumin g/dL 4.3 Total protein g/dL 6.6 Bilirubin, total mg/dL 0.4 Alkaline phosphatase U/L 84 AST/SGOT U/L 27 ALT/SGPT U/L 23 GFR estimate mL/min/1.73m2 77.5 94.8 95.1; 92.9 86.7 ? Surveys/Consents/Other Discussions NCCN distress screening?? was collected and documented in the patient's chart. ??NCCN distress score 0. ??Remarkable concerns ??were discussed with the patient, any additional follow-up as indicated in the plan below. The patient verbalized understanding of plan of care. Patient will be seen as above, sooner if needed. ??30 minutes ???20 minutes history and physical ??? 5 minutes discussing??indication and side effects of AI??and making recommendations ???5 minutes sending in prescription, chart review and documentation Josselyn Navarro RN, ESTELA, SHITAL, SHAD CC: Electronically signed by Josselyn Navarro RN, ESTELA, SHITAL, SHAD 06/05/2023 11:26 CDT
--- OUTSIDE RECORDS SUMMARY | 2025-01-11 09:32 | XMS_ITS | Clinical Summary ---
Author Organization [facility] Address [address] [place] [address] Care Team Providers Care French Instructor Name Role Phone Lisette Olmstead-C Unavailable [phone] Lisette Olmstead-C Unavailable [phone] Brenda Benoit MD Primary Care Provider Lisette Olmstead-C Unavailable [phone] Lisette Olmstead-C Unavailable [phone] Allergies Active Allergy Reactions Criticality Noted Date Comments Sulfamethoxazole-Trimeth oprim Rash High 02/26/2018 Patient had been on Bactrim from February 15, 2018, until about February 20, 2018. She restarted Bactrim on February 26, and, about 2.5 hours later, she started experiencing a burning, painful rash on the arms, legs, torso, influenza-like symptoms (fever and body aches), diarrhea and vomiting. Gluten Meal GI Disturbance 01/02/2016 Levofloxacin 02/09/2014 Radha's tendonitis Milk Protein 12/11/2023 Nsaids 01/15/2019 Hot red blotches Medications ACIDOPHILUS OR CAPS one capsules daily 0 9 Active omega 3 1000 MG CAPS Take 1 g by mouth daily 90 capsule 6 Active Misc Natural Products (TURMERIC CURCUMIN) CAPS Take 1,330 mg by mouth 6 Active UNABLE TO FIND 830 mg MEDICATION NAME: DHA Omega3 - 1 tablet daily 6 Active vitamin B complex with vitamin C (STRESS TAB) tablet Take 1 tablet by mouth daily Active anastrozole (ARIMIDEX) 1 MG tablet 1 mg Take 1 tablet daily 6 Active vitamin E (VITAMIN E BLEND) 400 UNIT capsule Take by mouth daily 30 capsule 6 Active cholecalciferol (VITAMIN D) 1000 UNIT tablet Take 1,000 Units by mouth daily 100 tablet 3 6 Active magnesium 100 MG CAPS Take 2 capsules by mouth daily 6 Active propranolol HCl 60 MG TABSIndications :Tremor, essential TAKE 1 TABLET BY MOUTH ONCE EVERY DAY . 90 tablet 2 8 Active zoledronic Acid (RECLAST) 5 MG/100ML SOLN infusion Inject 100 mLs (5 mg) into the vein once for 1 dose 100 mL 8 Active Multiple Vitamins-Minera ls (ZINC PO) Take 54 mg by mouth Active traZODone (DESYREL) 50 MG tablet Take 150 mg by mouth At Bedtime Active amLODIPine (NORVASC) 5 MG tablet Take 5 mg by mouth daily 3 Active rosuvastatin (CRESTOR) 10 MG tablet Take 10 mg by mouth daily 2 Active co-enzyme Q-10 100 MG CAPS capsule Take 300 mg by mouth daily Active POTASSIUM CITRATE PO Take 200 mg by mouth daily Active Psyllium-Calciu m (METAMUCIL PLUS CALCIUM) CAPS Take 2 capsules by mouth 2 times daily Active calcium citrate-vitamin D (CITRACAL) 200-6.25 MG-MCG TABS per tablet Take 3 tablets by mouth 2 times daily Active ginkgo biloba 60 MG CAPS capsule Take 120 mg by mouth daily Active Active Problems Problem Noted Date Diagnosed Date Elevated blood pressure read ing without diagnosis of hypertension 11/08/2021 Ureteral stone 11/08/2021 Thyroid nodule 11/08/2021 Trigger finger, acquired - right hand 10/14/2017 Middle insomnia 03/26/2016 Advance care planning 02/07/2016 Overview (02/07/2016): Advance Care Planning 02/07/2016: Receipt of ACP document: Received: Health Care Directive which was witnessed or notarized on 01/04/16. Document previously scanned on 01/09/16. Validation form completed and sent to be scanned. Code Status reflects choices in most recent ACP document. Confirmed/documented designated decision maker(s). Added by Lexy Escobar Malignant neoplasm of left f emale breast (HCC) - invasive intraductal 01/06/2016 Overview (01/06/2016): 01/05/16 - s/p left breast complete mastectomy, left sentinal lymph node biopsy - Dr Daniels History of melanoma - right upper back - localiz ed 07/21/2015 Left and right thyroid nodule 07/21/2015 Tremor, essential 08/03/2011 Lactose intolerance and gluten too 03/22/2011 Hyperlipidemia LDL goal <160 09/17/2010 Resolved Problems Problem Noted Date Diagnosed Date Resolved Date Post-op pain 01/05/2016 07/27/2016 Osteopenia 02/09/2014 10/14/2017 Adhesive capsulitis of right shoulder 12/05/2012 07/21/2015 Rotator cuff syndrome - right 11/28/2012 12/05/2012 Abnormal involuntary movement 03/22/2011 08/03/2011 Overview (08/19/2015): Problem list name updated by automated process. Provider to review Colitis 10/21/2007 01/20/2009 PURE HYPERCHOLESTEROLEMIA- goal <160 08/16/2006 10/27/2010 Overview (08/16/2006): borderline Esophageal reflux 10/19/2003 08/07/2010 Essential tremor 02/25/2003 08/07/2010 Cyst of thyroid 02/25/2003 08/07/2010 Encounters Date Type Department Care Team Description 12/23/2024 10:41 AM GAMMA RAY OPERATOR - 12/23/2024 11:59 PM GAMMA RAY OPERATOR Hospital Encounter [facility] [address] [place] [address] Lisette Olmstead PA-C Nephrolithiasis Discharge Disposition: Home or Self Care 12/23/2024 Travel from Last 3 Months Immunizations Name Administration Dates Next Due HEPA 03/03/2007,01/24/1996 HepB 05/24/2003,10/06/1996,08/28/1996 Influenza (High Dose) Trival ent,PF (Fluzone) 10/14/2017,07/27/2016 Influenza (IIV3) PF 09/07/2013,08/21/2011 Mantoux Tuberculin Skin Test 05/24/2003 Pneumo Conj 13-V (2010&after) 03/19/2015 Pneumococcal 23 valent 07/27/2016 Poliovirus, inactivated (IPV) 08/09/2009 TD,PF 7+ (Tenivac) 01/24/1996 TDAP Vaccine (Adacel) 03/03/2007 TDAP Vaccine (Boostrix) 07/27/2016 Typhoid Oral 08/09/2009 Zoster vaccine, live 08/21/2011 Family History Medical History Relation Comments Cancer Father spinal at age 46 Other Cancer Father Breast Cancer Maternal Aunt Alzheimer Disease Mother Hypertension Mother later Neurologic Disorder Mother alzheimers a ge is 81 Breast Cancer Other maternal cousins with bca Breast Cancer Paternal Aunt Coronary Artery Disease Paternal Grandfather Breast Cancer Paternal Grandmother Alzheimer Disease Sister Dementia Diabetes No family hx of Relation Status Comments Daughter 1 Alive Daughter 2 Alive Father (Age 46) spinal cancer Maternal Aunt Mother (Age 82) alzheimer - na tural causes Other Paternal Aunt Paternal Grandfather Paternal Grandmother Sister (Age 62) alzheimer - na tural causes Social History Tobacco Use Types Packs/Day Years Used Date Smoking Tobacco: Never Smokeless Tobacco: Never Tobacco Cessation:Counseling Given: Not Answered Alcohol Use Standard Drinks/Week Comments Yes 0 (1 standard drink = 0.6 oz pur e alcohol) 2-3 glasses of wine/week PHQ-2 Answer Date Recorded PHQ-2 Score 0 11/25/2018 Adolescent Education Answer Date Record ed Getting School Help Needed Not on file 08/18 Comments No Sex and Gender Information Value Date Recorded Sex Assigned at Female 12/07/2021 7:51 AM GAMMA RAY OPERATOR Legal Sex Female 3:22 AM GAMMA RAY OPERATOR Gender Identity Female 12/07/2021 7:51 AM GAMMA RAY OPERATOR Sexual Orientation Not on file 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 on file Not on file Last Filed Vital Signs Vital Sign Reading Time Taken Comments Blood Pressure 96/64 12/19/2023 1:00 PM GAMMA RAY OPERATOR Pulse 47 11/08/2021 3:30 AM GAMMA RAY OPERATOR Temperature 36.6 C (97.9 F) 11/07/2021 8:51 PM GAMMA RAY OPERATOR Respiratory Rate 18 11/07/2021 8:51 PM GAMMA RAY OPERATOR Oxygen Saturation 96% 11/08/2021 4:12 AM GAMMA RAY OPERATOR Inhaled Oxygen Concentration - - Weight 76.2 kg (168 lb) 12/19/2023 1:00 PM GAMMA RAY OPERATOR Height 166.4 cm (5' 5.5) 12/19/2023 1:00 PM GAMMA RAY OPERATOR Body Mass Index 27.53 12/19/2023 1:00 PM GAMMA RAY OPERATOR Plan of Treatment Upcoming Encounters Date Type Department Care Team (Late st Contact Info) Description 03/22/2025 3:00 PM CDT Virtual Visit [facility] [address] [place] [address] Lisette Olmstead PA-C [address] [facility] [address] [place] [address] Health Maintenance Due Date Last Done Comments ANNUAL REVIEW OF HM ORDERS [address] COLONOGRAPHY 1950 FIT 1950 FLEX SIG 1950 sDNA (Cologuard) 1950 LIPID 07/27/2017 07/27/2016, 02/16, 10/04/2010, Additional history exists FALL RISK ASSESSMENT 10/14/2018 10/14/2017, 07/27/2016, 07/21/2015 MAMMO SCREENING 12/12/2019 12/12/2018, 11/18, 12/03/2016, Additional history exists ADVANCE CARE PLANNING 02/06/2021 02/07/2016, 016 COVID-19 Vaccine ( season) 2024 10/18/2023, 09/12/2022, 03/14/2022, Additional history exists GLUCOSE 11/07/2024 11/07/2021, 09/0 07/2016, 12/30/2015, Additional history exists RSV VACCINE (1 - 1-dose 75+ series) 2024 PHQ-2 (once per calendar year) 2024 03/21/2018, 07/27/2016, 07/21/2015 MEDICARE ANNUAL WELLNESS VISIT 01/15/2025 01/15/2024, 09/20/2022, 10/14/2017 (Not Needed), Additional history exists DTAP/TDAP/TD IMMUNIZATION (3 - Td or Tdap) 07/27/2026 07/27/2016, 03/03/2007, 01/24/1996 DEXA 10/28/2027 10/28/2024, 11/2021, 07/02/2019, Additional history exists COLONOSCOPY 02/07/2033 02/07/2023, 07/2013, 11/26/2012, Additional history exists COLORECTAL CANCER SCREENING 02/07/2033 Pneumococcal Vaccine: 50+ Years Completed 07/27/2016, 03/19/2015 ZOSTER IMMUNIZATION Completed 08/21/2019, 07/20/2019, 08/21/2011 HEPATITIS C SCREENING Completed 09/20/2022, 016 INFLUENZA VACCINE Completed 08/12/2024, , 07/17/2022, Additional history exists HPV IMMUNIZATION Aged Out No longer e ligible based on patient's age to complete this topic MENINGITIS IMMUNIZATION Aged Out No l onger eligible based on patient's age to complete this topic Procedures Procedure Name Priority Date/Time Associated Diagnosis Comments CT ABDOMEN PELVIS W/O CONTRAST Routine 12/23/2024 11:10 AM GAMMA RAY OPERATOR Nephrolithiasis COMPREHENSIVE METABOLIC PANEL STAT 11/07/2021 9:16 PM GAMMA RAY OPERATOR MA SCREENING RIGHT W/ JEEVAN Routine 12/04/2017 10:15 AM GAMMA RAY OPERATOR Encounter for screening mammogram for high-risk patient DX BONE DENSITY Routine 07/10/2017 10:13 AM CDT Asymptomatic postmenopausal status LIPID REFLEX TO DIRECT LDL PANEL Routine 07/27/2016 10:33 AM CDT Encounter for routine adult health examination without abnormal findings HEPATITIS C ANTIBODY Routine 03/26/2016 10:50 AM CDT Need for hepatitis C screening test COLONOSCOPY Routine 11/26/2012 7:17 AM GAMMA RAY OPERATOR from Last 3 Months or Most Recently Relevant to Health Maintenance Results * CT Abdomen Pelvis w/o Contrast (12/23/2024 11:10 AM GAMMA RAY OPERATOR) Anatomical Region Laterality Modality Abdomen/Pelvis, SUBRAD CT JAMEEL DY, UMP CT ABDOMEN PELVIS, RAD CT Computed Tomography 12/23/2024 11:1 0 AM GAMMA RAY OPERATOR Impressions 12/23/2024 12:43 PM GAMMA RAY OPERATOR IMPRESSION: 1. Stable stone burden involving the bilateral kidneys with multiple intrarenal stones. No hydronephrosis. 2. Stable nodule at the left lung base. The prior exam report states that this nodule is stable since 11/07/2021. Narrative 12/23/2024 12:43 PM GAMMA RAY OPERATOR EXAM: CT ABDOMEN PELVIS W/O CONTRAST LOCATION: [facility] DATE: 12/23/2024 INDICATION: Nephrolithiasis. COMPARISON: 12/19/2023. TECHNIQUE: [...] EXAM: CT ABDOMEN PELVIS W/O CONTRAST LOCATION: [facility] DATE: 12/23/2024 INDICATION: Nephrolithiasis. COMPARISON: 12/19/2023. TECHNIQUE: [...] PA-C IMG CT ORDERABLES Fin al Result * (ABNORMAL) Comprehensive metabolic panel (11/07/2021 9:16 PM GAMMA RAY OPERATOR) Sodium 141 133 - 144 mmol/L 11/07/2021 9:45 PM GAMMA RAY OPERATOR LABORATORY Potassium 4.1 3.4 - 5.3 mmol/L 11/07/2021 9:45 PM GAMMA RAY OPERATOR LABORATORY Chloride 107 94 - 109 mmol/L 11/07/2021 9:45 PM GAMMA RAY OPERATOR LABORATORY Carbon Dioxide (CO2) 28 20 - 32 mmol/L 11/07/2021 9:45 PM GAMMA RAY OPERATOR LABORATORY Anion Gap 6 3 - 14 mmol/L 11/07/2021 9:45 PM GAMMA RAY OPERATOR LABORATORY Urea Nitrogen 19 7 - 30 mg/dL 11/07/2021 9:45 PM GAMMA RAY OPERATOR LABORATORY Creatinine 0.87 0.52 - 1.04 mg/dL 11/07/2021 9:45 PM GAMMA RAY OPERATOR LABORATORY Calcium 9.7 8.5 - 10.1 mg/dL 11/07/2021 9:45 PM [facility] Glucose 143(H) 70 - 99 mg/dL 11/07/2021 9:45 PM GAMMA RAY OPERATOR LABORATORY Alkaline Phosphatase 88 40 - 150 U/L 11/07/2021 9:45 PM GAMMA RAY OPERATOR LABORATORY AST 23 0 - 45 U/L 11/07/2021 9:45 PM GAMMA RAY OPERATOR LABORATORY ALT 31 0 - 50 U/L 11/07/2021 9:45 PM GAMMA RAY OPERATOR LABORATORY Protein Total 7.4 6.8 - 8.8 g/dL 11/07/2021 9:45 PM GAMMA RAY OPERATOR LABORATORY Albumin 4.0 3.4 - 5.0 g/dL 11/07/2021 9:45 PM GAMMA RAY OPERATOR LABORATORY Bilirubin Total 0.3 0.2 - 1.3 mg/dL 11/07/2021 9:45 PM GAMMA RAY OPERATOR [facility] LABORATORY GFR Estimate 71 >60 mL/min/1.7 3m2 11/07/2021 9:45 PM GAMMA RAY OPERATOR LABORATORY Comment:Effective October 192020 eGFRcr in adults is calculated using the 2020 CKD-EPI creatinine equation which includes age and gender (Brielle et al., NEJM, DOI: 10.1056/JLKHht8006256) Blood STRUCTURE OF LEFT UPPER LIMB / Unknown Venipuncture / Unknown 11/07/2021 9:16 PM GAMMA RAY OPERATOR 11/07/2021 9:22 PM GAMMA RAY OPERATOR us Connor Blum MD LAB - BLOOD ORDERABLES Fi nal Result LABORATORY [facility] [address] Lab (1st floor, no room number) [place] [address], [facility] [phone] * MA Screen Right w/Jeevan (12/04/2017 10:15 AM GAMMA RAY OPERATOR) Anatomical Region Laterality Modality Breast Bilateral Mammography Impressions 12/04/2017 10:19 AM GAMMA RAY OPERATOR IMPRESSION: BI-RADS CATEGORY: 1 - NEGATIVE. RECOMMENDED FOLLOW-UP: Annual Mammography. ALEXIS PRO MD Narrative 12/04/2017 10:19 AM GAMMA RAY OPERATOR MA SCREENING RIGHT W/ JEEVAN 12/04/2017 10:15 AM HISTORY: Screening. No new breast complaints. COMPARISON: 12/03/16, 11/19/13 TECHNIQUE: Digital mammography with CAD is performed as well as DBT. BREAST DENSITY: Heterogeneously dense. COMMENTS: No findings of suspicion for malignancy. Procedure Note Alexis Pro MD - 12/04/2017 MA SCREENING RIGHT W/ JEEVAN 12/04/2017 10:15 AM HISTORY: Screening. No new breast complaints. COMPARISON: 12/03/16, 11/19/13 TECHNIQUE: Digital mammography with CAD is performed as well as DBT. BREAST DENSITY: Heterogeneously dense. COMMENTS: No findings of suspicion for malignancy. IMPRESSION: BI-RADS CATEGORY: 1 - NEGATIVE. RECOMMENDED FOLLOW-UP: Annual Mammography. ALEXIS PRO MD us Zaid Motley MD IMG MAMMOGRAPHY ORDERABLES Final Result * DX Hip/Pelvis/Spine (07/10/2017 10:13 AM CDT) Anatomical Region Laterality Modality Dexa Bone Mineral Den sity Narrative 07/19/2017 8:36 AM CDT BONE DENSITOMETRY [address] [address] 07/10/2017 PATIENT: Jesenia Bar Holter CHART: [id number] : 1950 AGE: [age] year old SEX: female REFERRING PROVIDER: Zaid Motley MD PROCEDURE: Bone density scanning was performed using DXA technology of the lumbar spine and hip. Scanning was performed on a [employer] scanner. Reporting is completed in the form of a T-score. The T-score represents the standard deviation from peak bone mass based on a young healthy adult. REFERENCE T-SCORES: Normal -1.0 and greater Osteopenia Between -1.0 and -2.5 Osteoporosis -2.5 and less RISK FACTORS: Post-menopausal, Height loss of 2 inches, Parent history of osteoporosis with a hip fracture, Condition related to bone loss: breast cancer therapy: arimidex CURRENT TREATMENT: Calcium with Vitamin D FINDINGS: Lumbar Spine (L1-L4) T-score: -1.8, degenerative changes present Left Femoral Neck T-score: -1.7 Right Femoral Neck T-score: -2.5 Lumbar (L1-L4) BMD: 0.968 Total Hip Mean BMD: 0.835 IMPRESSION Osteoporosis., Degenerative changes of the lumbar spine which may falsely elevate results. Patient had a study performed previously, however it was performed on a Hologic machine so comparison is not possible. Recommendations include ensuring adequate Calcium and Vitamin D. The current NOF Guidelines recommend treatment for patients with prior hip or vertebral fracture, T-score -2.5 or below, or 10 year risk of any major osteoporotic fracture >20% or 10 year risk of hip fracture >3%, as calculated using the FRAX calculator (www.shef.ac.uk/FRAX or you can google FRAX). Based on these guidelines, treatment (in addition to calcium and vitamin D) is recommended for this patient, after ruling out other causes of osteoporosis. This is meant as an aid to clinical decision making; one must still use clinical judgement. Follow up can be considered in 2 years. Izabel Magaña M.D. Electronically signed us Zaid Motley MD IMG DEXA ORDERABLES Final Result * (ABNORMAL) Lipid panel reflex to direct LDL (07/27/2016 10:33 AM CDT) Cholesterol 285(H) <200 mg/dL [facility] Comment:Desirable: <200 mg/d l Triglycerides 96 <150 mg/dL [facility] Comment:Fasting specimen HDL Cholesterol 99 >49 mg/dL [facility] LDL Cholesterol Calculated 167(H) <100 mg/dL [facility] Comment: Above desirable: 100-129 mg/dl Borderline High: 130-159 mg/dL High: 160-189 mg/dL Very high: >189 mg/dl Non HDL Cholesterol 186(H) <130 mg/dL [facility] Comment: Above Desirable: 130-159 mg/dl Borderline high: 160-189 mg/dl High: 190-219 mg/dl Very high: >219 mg/dl Blood specimen (specimen) 07/27/2016 10:33 AM CDT 07/27/2016 10:38 AM CDT us Michael Murphy MD LAB - BLOOD ORDERABLES Final Result [facility] [address] [address] * Hepatitis C antibody (03/26/2016 10:50 AM CDT) Hepatitis C Antibody Nonreactive Assay performance characteristics have not been established for newborns, infants, and children NR [facility] Blood specimen (specimen) 03/26/2016 10:50 AM CDT 03/26/2016 10:56 AM CDT us Michael Murphy MD LAB - BLOOD ORDERABLES Final Result [facility] [address] [place] [address] * COLONOSCOPY (11/26/2012 7:17 AM GAMMA RAY OPERATOR) COLONOSCOPY [facility] Patient Name: Jesenia Saunders Procedure Date: 11/26/2012 7:17:05 AM Date of : 1950 Admit Type: Outpatient Age: 62 Gender: Female Attending MD: Katarina Bush MD Procedure: Colonoscopy Indications: Screening for colorectal malignant neoplasm Providers: Katarina Blsa MD Referring MD: Michael Murphy MD Medicines: Fentanyl 100 micrograms IV, Midazolam 2 mg IV Complications: No immediate complications Procedure: Pre-Anesthesia Assessment: - Prior to the procedure, a History and Physical was performed, and patient medications and allergies were reviewed. The patient is competent. The risks and benefits of the procedure and the sedation options and risks were discussed with the patient. All questions were answered and informed consent was obtained. Patient identification and proposed procedure were verified by the physician and the nurse in the procedure room. Mental Status Examination: alert and oriented. Airway Examination: normal oropharyngeal airway and neck mobility. Respiratory Examination: clear to auscultation. CV Examination: normal. Prophylactic Antibiotics: The patient does not require prophylactic antibiotics. Prior Anticoagulants: The patient has taken no previous anticoagulant or antiplatelet agents. ASA Grade Assessment: I - A normal, healthy patient. After reviewing the risks and benefits, the patient was deemed in satisfactory condition to undergo the procedure. The anesthesia plan was to use moderate sedation / analgesia (conscious sedation). Immediately prior to administration of medications, the patient was re-assessed for adequacy to receive sedatives. The heart rate, respiratory rate, oxygen saturations, blood pressure, adequacy of pulmonary ventilation, and response to care were monitored throughout the procedure. The physical status of the patient was re-assessed after the procedure. After obtaining informed consent, the colonoscope was passed under direct vision. Throughout the procedure, the patient's blood pressure, pulse, and oxygen saturations were monitored continuously. The Colonoscope was introduced through the anus and advanced to the cecum, identified by appendiceal orifice & ileocecal valve. The colonoscopy was performed without difficulty. The patient tolerated the procedure well. The quality of the bowel preparation was good. Findings: The colon (entire examined portion) appeared normal. Internal hemorrhoids were found during retroflexion and were small. Impression: - The entire examined colon is normal. - Internal hemorrhoids. Recommendation: - Await pathology results. Repeat colonoscopy in 10 years. Josse Blas M.D. _ Katarina Blas MD Signed Date: 11/26/2012 8:31:11 AM Number of Addenda: 0 I was physically present for the entire viewing portion of the exam. Note Initiated On: 11/26/2012 7:17:05 AM Scope Withdrawal Time: 0 hours 10 minutes 13 seconds Scope Withdrawal Time: 0 hours 10 minutes 13 seconds Total Procedure Duration: 0 hours 15 minutes 22 seconds RADIOLOGY RESULTS 11/26/2012 7:17 AM GAMMA RAY OPERATOR Michael Murphy MD PROCEDURES Final Result RADIOLOGY RESULTS from Last 3 Months or Most Recently Relevant to Health Maintenance Insurance [facility] [employer]IC[employer] [facility] [place] [address] MEDICARE Advance Directives For more information, please contact: [phone] Documents on File Type Date Recorded Patient Software Security Architect Expl anation Advance Directives and Living Will 01/09/2016 11:31 AM HEALTH CARE DIRECTIV E 01/04/2016 * Full Code (Latest Code Status on File) Date Activated Date Inactivated Comments 01/05/2016 4:24 PM 01/06/2016 8:15 PM Care Teams French Instructor Relationship Specialty Start Date End Date Brenda Benoit MD [address] [place] [address] [place] [address] PCP - General Family Medicine 09/27/23 Lisette Olmstead PA-C [address] [place] [address] Physician Vaccine Key Customer Leader Urology 11/17/21 Lisette Olmstead PA-C [address] [place] [address] Assigned Surgical Provider 12/10/21 Lisette Olmstead PA-C [address] [place] [address] Physician Vaccine Key Customer Leader Urology 10/08/24 Lisette Olmstead PA-C [address] [place] [address] Physician Vaccine Key Customer Leader Urology 12/28/24
--- NOTE | 2025-01-11 09:47 | CRLHL7_ITS ---
For Patients: As a result of the Cures Act, medical imaging exams and procedure reports are released immediately into your electronic medical record. You may view this report before your referring provider. If you have questions, please contact your health care provider. INDICATION: Injury COMPARISON: None TECHNIQUE: Single view examination FINDINGS: TUBES AND LINES: None. HEART AND MEDIASTINUM: The heart size is normal. The mediastinal contour appears normal for patient age. LUNGS AND PLEURAL SPACES: The lungs appear normal.The pleural spaces are unremarkable. OSSEOUS STRUCTURES: Age-appropriate appearance. No acute focal finding.Postoperative changes on the right probably related to mastectomy. IMPRESSION: No acute posttraumatic findings. Dictated by Rosas Kapoor MD @ 01/11/2025 10:18:41 AM (Electronically Signed)
--- NOTE | 2025-01-11 09:47 | CRLHL7_ITS ---
For Patients: As a result of the Century Cures Act, medical imaging exams and procedure reports are released immediately into your electronic medical record. You may view this report before your referring provider. If you have questions, please contact your health care provider. INDICATION: Trauma COMPARISON: None TECHNIQUE: CT examination of the head was performed as axial sections without intravenous contrast. Images were obtained from the vertex of the skull through the skull base. Please note that all CT scans at this facility use dose modulation, iterative reconstruction, and/or weight-based dosing when appropriate to reduce radiation dose to as low as reasonably achievable. FINDINGS: There is an anterior interhemispheric subdural hematoma. Maximum dimension medial-lateral as about 4.4 millimeters. This has no mass effect upon adjacent structures. This measures about 4.2 centimeters in greatest anteroposterior dimension. There are involutional changes. There is moderate cortical atrophy and there is moderate white matter disease. There is no hydrocephalus. The visualized portions of the orbits are normal in appearance. The osseous structures are normal in appearance with no sign of abnormality in the skull base or calvarium. There is a subcutaneous hematoma in the right occipital region. I discussed the above findings with Trip Lee at 10:20 a.m. on January 11, 2025 IMPRESSION: 1. Anterior interhemispheric subdural hematoma. This measures 4.4 millimeters mediolaterally and about 4.2 centimeters in anteroposterior length. No mass effect upon any adjacent structure. No additional intracranial hemorrhage noted. 2. Atrophy and white matter disease. 3. Subcutaneous hematoma in the occipital region. 4. No calvarial fracture noted. Please note that all CT scans at this facility use dose modulation, iterative reconstruction, and/or weight-based dosing when appropriate to reduce radiation dose to as low as reasonably achievable. Dictated by Rosas Kapoor MD @ 01/11/2025 10:26:26 AM (Electronically Signed)
--- NOTE | 2025-01-11 09:47 | CRLHL7_ITS ---
For Patients: As a result of the Century Cures Act, medical imaging exams and procedure reports are released immediately into your electronic medical record. You may view this report before your referring provider. If you have questions, please contact your health care provider. Indication: Injury Technique: A total of three-view of the left shoulder were acquired. Comparison: None Findings: Bones: Questionable vertically-oriented linear lucency of the glenoid neck. Consider CT for confirmation. No other findings suggesting fracture. Joint spaces: No dislocation. Acromioclavicular osteoarthritis. 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 Impression: 1. Questionable vertically oriented linear lucency at the glenoid neck. Consider a CT for confirmation. No additional findings suggesting fracture. 2. No dislocation. 3. Chronic calcific tendinitis of the rotator cuff. Dictated by Rosas Kapoor MD @ 01/11/2025 10:21:00 AM (Electronically Signed)
--- NOTE | 2025-01-11 09:47 | CRLHL7_ITS ---
For Patients: As a result of the Century Cures Act, medical imaging exams and procedure reports are released immediately into your electronic medical record. You may view this report before your referring provider. If you have questions, please contact your health care provider. INDICATION: Injury COMPARISON: None TECHNIQUE: CT examination of the cervical spine is performed without contrast using spiral technique. Thin axial, sagittal and coronal reconstructions were made. Please note that all CT scans at this facility use dose modulation, iterative reconstruction, and/or weight-based dosing when appropriate to reduce radiation dose to as low as reasonably achievable. FINDINGS: : Bone mineral density is decreased. There are moderate to severe degenerative changes diffusely. A degenerative anterolisthesis of C3 on C4 is noted. This measures about 2.5 millimeters. There is no visible acute fracture, dislocation or destructive process. IMPRESSION: No acute fracture, dislocation or destructive process. Decreased bone mineral density. Moderate to severe degenerative changes diffusely. There is a 2.5 millimeter degenerative anterolisthesis of C3 on C4. Please note that all CT scans at this facility use dose modulation, iterative reconstruction, and/or weight-based dosing when appropriate to reduce radiation dose to as low as reasonably achievable. Dictated by Rosas Kapoor MD @ 01/11/2025 10:28:57 AM (Electronically Signed)
--- NOTE | 2025-01-11 09:47 | ED_ITS ---
HPI - General Adult General Time Seen by Provider: 09:47 Date Seen: 01/11/25 Chief complaint: Fall/Minor Trauma Stated complaint: Fell, hit head--loss of consciousness Time Seen by Provider: 01/11/25 09:46 History of Present Illness HPI narrative: Jesenia is a very pleasant 74-year-old previously healthy who comes to the emergency room with her for dizziness after a fall. Nursing staff called this [facility] due to LOC. Jesenia and her or out walking today and did not realize that they were walking on ice. She fell backwards striking the posterior aspect of her head on cement. Her describes that as a crunching type of sound. They do endorse loss of consciousness and upon further discussion this was only 4-5 seconds. Jesenia describes this as everything being white in her vision. Since that time she has had significant dizziness and and states that her head hurts. Her does state that she has a very high pain tolerance. She has not had any vomiting but has had nausea. Denies numbness or tingling of the arms. No loss of bowel or bladder control. Complains of left shoulder discomfort otherwise no pain of back. also states that Jesenia has chronic hypotension and has not had any issues from that although when she does have procedures this is often concerning to medical staff. Patient not currently on blood thinners. Related Data Home Medications ?Medication ?Instructions ?Recorded ?Confirmed amlodipine 5 mg tablet 5 mg PO DAILY 09/06/24 09/06/24 propranolol 20 mg tablet 20 mg PO BID 09/06/24 09/06/24 rosuvastatin 10 mg tablet 10 mg PO QPM 09/06/24 09/06/24 trazodone 50 mg tablet 50 - 150 mg PO QPM PRN 09/06/24 09/06/24 Allergies Allergy/AdvReac Type Severity Reaction Status Date / Time levofloxacin (From Levaquin) Allergy Unknown Verified 01/11/25 09:48 Sulfa (Sulfonamide Allergy Unknown Verified 01/11/25 09:48 Antibiotics) Review of Systems Status of ROS: Reports: 10 or more systems reviewed and unremarkable except as noted in History and below Const: Denies: fever or chills Eyes: Reports: change in vision (Now resolved) ENMT: Denies: throat pain, neck pain, throat swelling or nasal congestion Cardio: Reports: lightheadedness; Denies: chest pain, swelling of feet/ankles or shortness of breath with exertion Resp: Denies: shortness of breath or cough GI: Reports: nausea; Denies: abdominal pain, vomiting or diarrhea : Denies: painful urination Musculo: Reports: extremity pain (Left shoulder); Denies: back pain or neck pain Integ/Breast: Denies: rash Neuro: Reports: headache and dizziness; Denies: numbness in extremities or weakness in extremities Allergy/Immuno: Denies: throat swelling PFSH PFS Social History Non-prescribed substance use: denies use Exam Narrative: Exam Narrative: Primary survey: Airway is open Breathing easy without wheezing. Circulation intact with no obvious bleeding Disability GCS of 15, pupils equal round and reactive Patient is alert and oriented. EOM is full and pupils are equal round reactive. Head shows tender area on the right posterior parietal scalp with no compromise of the skin. Neck is supple. No midline cervical tenderness. Patient does have discomfort subjectively with movement of the neck in the left trapezial area. Heart with a regular rate and rhythm and lungs are clear bilaterally. No drainage from ears. Abdomen soft. Moving all extremities. Strength and motor intact. Some mild discomfort with palpation over the left superior humerus. Palpation down thoracic and lumbar spine without discomfort. Const: Vital Signs, click to edit/add: Vital Signs - 24 hr 01/11/25 09:44 01/11/25 09:45 01/11/25 09:51 Temperature 96.9 F L Pulse Rate 54 L Pulse Rate [Pulse Oximeter] 54 L Respiratory Rate 22 18 Blood Pressure 189/82 H Blood Pressure [Ri ght Upper Arm] 189/82 H Pulse Oximetry 96 96 Oxygen Delivery Me thod Room Air 01/11/25 10:05 01/11/25 10:07 01/11/25 10:12 Temperature Pulse Rate 49 L 55 L 47 L Pulse Rate [Pulse Oximeter] Respiratory Rate 19 20 24 Blood Pressure 188/90 H 184/74 H Blood Pressure [Ri ght Upper Arm] Pulse Oximetry 96 97 95 Oxygen Delivery Me thod 01/11/25 10:15 01/11/25 10:22 01/11/25 10:30 Temperature Pulse Rate 49 L 47 L 49 L Pulse Rate [Pulse Oximeter] Respiratory Rate 9 L 28 H 14 Blood Pressure 171/71 H Blood Pressure [Ri ght Upper Arm] Pulse Oximetry 97 97 95 Oxygen Delivery Me thod 01/11/25 10:33 01/11/25 10:42 01/11/25 10:45 Temperature Pulse Rate 51 L 48 L 48 L Pulse Rate [Pulse Oximeter] Respiratory Rate 12 11 L 19 Blood Pressure 195/88 H 189/91 H Blood Pressure [Ri ght Upper Arm] Pulse Oximetry 95 97 98 Oxygen Delivery Me thod 01/11/25 10:52 01/11/25 11:00 01/11/25 11:02 Temperature Pulse Rate 49 L 48 L 49 L Pulse Rate [Pulse Oximeter] Respiratory Rate 7 L 77 H 25 H Blood Pressure 188/89 H 206/85 H Blood Pressure [Ri ght Upper Arm] Pulse Oximetry 97 97 96 Oxygen Delivery Me thod 01/11/25 11:05 01/11/25 11:13 01/11/25 11:15 Temperature Pulse Rate 54 L 47 L 47 L Pulse Rate [Pulse Oximeter] Respiratory Rate 53 H 24 18 Blood Pressure 216/85 H 201/77 H Blood Pressure [Ri ght Upper Arm] Pulse Oximetry 96 97 96 Oxygen Delivery Me thod 01/11/25 11:30 01/11/25 11:32 01/11/25 11:33 Temperature Pulse Rate 47 L 47 L 48 L Pulse Rate [Pulse Oximeter] Respiratory Rate 19 9 L 18 Blood Pressure 183/75 H Blood Pressure [Ri ght Upper Arm] Pulse Oximetry 96 97 96 Oxygen Delivery Me thod 01/11/25 11:42 01/11/25 11:45 01/11/25 11:47 Temperature Pulse Rate 53 L 51 L 52 L Pulse Rate [Pulse Oximeter] Respiratory Rate 18 13 33 H Blood Pressure 163/71 H 159/66 H Blood Pressure [Ri ght Upper Arm] Pulse Oximetry 97 94 95 Oxygen Delivery Me thod 01/11/25 11:52 01/11/25 11:57 01/11/25 11:57 Temperature Pulse Rate 50 L 52 L 52 L Pulse Rate [Pulse Oximeter] Respiratory Rate 19 24 24 Blood Pressure 148/66 H 151/60 H 151/60 H Blood Pressure [Ri ght Upper Arm] Pulse Oximetry 96 97 97 Oxygen Delivery Me thod 01/11/25 12:00 Temperature 97.6 F Pulse Rate Pulse Rate [Pulse Oximeter] Respiratory Rate Blood Pressure Blood Pressure [Ri ght Upper Arm] Pulse Oximetry Oxygen Delivery Me thod Course Course ED Course: Differential diagnosis includes but is not limited to skull fracture, intraparenchymal bleed, concussion, neck injury. There were no prodromal symptoms and this does appear to be explained by undetected ice and slipping. Will also place IV, order head and cervical spine CTs, chest x-ray and left shoulder x-ray. Reevaluation(s) Reevaluation #1: I received a phone call from Radiology in regards to a subdural hematoma noted on head CT. This is measuring 4 mm in width and up to 4 cm long. It is anterior and interhemispheric. I immediate called to [facility] to speak with neuro surgery. There seemed to be a delay and I was unable to speak with Neurosurgery but they did route me to , ED physician at [facility] who accepts this patient in transfer. Does agree with a Keppra bolus of 2 g. I spoke with patient regarding need for transfer and clearly she is upset about this. I did share that cervical spine does not show any evidence of fracture. Possible glenoid abnormality on x-ray but I do see patient moving her shoulder fairly well. Did relate to accepting physician need for CT based on radiology suggested. Of the left shoulder. Reevaluation #2: I am contacted by nursing staff as patient does have elevated systolic blood pressure to 216. Will initiate nicardipine. Patient noted that she had not gotten significant pain relief but I have just found out from nursing staff that she has not received her IV Tylenol. We did speak about the use of various narcotics including Dilaudid or fentanyl in the treatment of her headache but her has some fairly significant stories of bradycardia hypotension and hypoxia even when using small amounts of these medications. Therefore I wanted to try Tylenol 1st. Will also give small dose of Ativan 0.25 mg as she seems to be very sensitive to medications. Of note patient does have a history of sinus bradycardia. I looked at previous visits to the ED where her heart rate was 50. This is consistent with what we are seeing today and it does not appear to be new. Patient continues to be alert oriented and mentating normally. Vital Signs Vital signs: Initial Vital Signs Pulse Rate 54 L 01/11/25 09:44 Pulse Oximetry 96 01/11/25 09:44 Vital Signs Pulse Rate 54 L 01/11/25 09:44 Pulse Oximetry 96 01/11/25 09:44 Temperature 97.6 F 01/11/25 12:00 Pulse Rate 52 L 01/11/25 11:57 Respiratory Rate 24 01/11/25 11:57 Blood Pressure 151/60 H 01/11/25 11:57 Pulse Oximetry 97 01/11/25 11:57 Oxygen Delivery Method Room Air 01/11/25 09:51 Medications Administered Medications: Generic Name Dose Route Start Last Admin Trade Name Freq PRN Reason Stop Dose Admin Nicardipine/Sodium Chloride 20 mg in 200 mls @ 50 mls/hr 01/11/25 11:07 01/11/25 11:31 Cardene Iv IV 50 mls/hr DIRECTED SEDA Administration Protocol Discontinued Medications Generic Name Dose Route Start Last Admin Trade Name Freq PRN Reason Stop Dose Admin Acetaminophen 1,000 mg in 100 mls @ 400 mls/hr 01/11/25 10:43 01/11/25 12:06 Ofirmev IVPB 01/11/25 10:57 Infused ONCE ONE Infusion Levetiracetam 2,000 mg/ Sodium 120 mls @ 480 mls/hr 01/11/25 10:54 01/11/25 11:45 Chloride IVPB 01/11/25 10:55 Infused ONCE ONE Infusion Lorazepam 0.25 mg 01/11/25 11:09 01/11/25 11:27 Lorazepam 2 Mg/Ml Inj IVP 01/11/25 11:10 0.25 mg ONCE ONE Administration Medical Decision Making [facility] Narrative Medical decision making narrative: 1. Subdural hematoma-patient noted to have an anterior interhemispheric subdural hematoma measuring 4.4 in with and 4.2 cm in length. Patient had approximately 4-5 seconds of LOC per has been consistently dizzy with headache since that time. At this time pupils are equal. She is mentating normally. She is not currently on any blood thinners. Will transfer to [facility] for further evaluation by specialty care and admission. She is given 2 g of Keppra for seizure prophylaxis. Because of multiple reactions to narcotics in the past and sensitivity to medications, we used IV Tylenol 1 g and Ativan 0.25 g for pain control and this has helped. 2. Hypertension-patient noted to be normally hypotensive. Blood pressure now 216 systolic and have initiated nicardipine to decreased blood pressure gradually 2 goal of below 160. Addendum: Nicardipine initiated and blood pressure now 163 systolic. 3. Left shoulder injury-patient noted some discomfort in her left shoulder. She is able to move her arm. However, plain view film of the left shoulder shows questionable linear abnormality in the glenoid. Radiological suggestion to follow-up with CT. This was conveyed to excepting physician. 4. Disposition-transfer to [facility] for further evaluation under the care of ED physician . Ground ambulance ALS transfer. Note: Patient is on amlodipine and propranolol. She takes propanolol twice daily for a tremor. She and her note that she as consistently bradycardic. This is not a new finding today after the head injury and heart rate is consistent with previous visits to the ED. Medical Records Medical records reviewed: Yes I reviewed the patient's medical records Imaging Data CT scan - head: Attestation: I have reviewed the pertinent imaging results. Radiologist's impression: here is an anterior interhemispheric subdural hematoma. Maximum dimension medial-lateral as about 4.4 millimeters. This has no mass effect upon adjacent structures. This measures about 4.2 centimeters in greatest anteroposterior dimension. There are involutional changes. There is moderate cortical atrophy and there is moderate white matter disease. There is no hydrocephalus. The visualized portions of the orbits are normal in appearance. The osseous structures are normal in appearance with no sign of abnormality in the skull base or calvarium. There is a subcutaneous hematoma in the right occipital region. I discussed the above findings with Trip Lee at 10:20 a.m. on January 11, 2025 IMPRESSION: 1. Anterior interhemispheric subdural hematoma. This measures 4.4 millimeters mediolaterally and about 4.2 centimeters in anteroposterior length. No mass effect upon any adjacent structure. No additional intracranial hemorrhage noted. 2. Atrophy and white matter disease. 3. Subcutaneous hematoma in the occipital region. 4. No calvarial fracture noted. Cervical spine CT: Attestation: I have reviewed the pertinent imaging results. My impression: I do not note any acute fracture Radiologist's impression: Bone mineral density is decreased. There are moderate to severe degenerative changes diffusely. A degenerative anterolisthesis of C3 on C4 is noted. This measures about 2.5 millimeters. There is no visible acute fracture, dislocation or destructive process. IMPRESSION: No acute fracture, dislocation or destructive process. Decreased bone mineral density. Moderate to severe degenerative changes diffusely. There is a 2.5 millimeter degenerative anterolisthesis of C3 on C4. Chest x-ray: Attestation: I have reviewed the pertinent imaging results. My impression: No obvious infiltrates Radiologist's impression: HEART AND MEDIASTINUM: The heart size is normal. The mediastinal contour appears normal for patient age. LUNGS AND PLEURAL SPACES: The lungs appear normal.The pleural spaces are unremarkable. OSSEOUS STRUCTURES: Age-appropriate appearance. No acute focal finding.Postoperative changes on the right probably related to mastectomy. IMPRESSION: No acute posttraumatic findings. Shoulder left x-ray: Attestation: I have reviewed the pertinent imaging results. My impression: I do not note any obvious fractures Radiologist's impression: 1. Questionable vertically oriented linear lucency at the glenoid neck. Consider a CT for confirmation. No additional findings suggesting fracture. 2. No dislocation. 3. Chronic calcific tendinitis of the rotator cuff. Critical Care Time Critical Care Time Critical Care Time: Yes Attestation: The patient required my highest level preparedness to intervene emergently and I personally spent this critical care time directly and personally managing the patient. This critical care time included: Obtaining a history; Examining the patient; Pulse oximetry; Ordering and reviewing of studies; Arranging urgent treatment with development of a management plan; Evaluation of patients response to treatment; Frequent reassessment discussions with other providers. This critical care time was performed to assess and manage the high probability of imminent life-threatening deterioration that could result in multiorgan failure. It was exclusive of separate billable procedures and treating other patients and teaching time. Total Critical Care Time in Minutes: 60 Discharge Plan Discharge Clinical Impression: Acute subdural hematoma, Injury of left shoulder Patient Disposition: [facility] Discharge Location: [facility] Condition: Improved
[2025-01-11] MEDS: LORazepam 2 MG/ML inj 0.25 MG IVP (11:27)
[2025-01-11] MEDS: NICARDIPINE INFUSION 0.1 mg/ml 20 MG/200 ML BAG 50 MG IV (11:31)
[2025-01-11] MEDS: ACETAMINOPHEN INJ 1,000 MG/100 ML VIAL 400 MG IVPB (11:39)
== END 2025-01-11 12:15 | disposition short-term general hospital (02) ==
PROVIDERS: Emergency Provider Family Medicine; PCP Family Medicine
DX: S06.5XAA Traumatic subdural hemorrhage with loss of consciousness status unknown, initial encounter (principal); S49.92XA Unspecified injury of left shoulder and upper arm, initial encounter; W00.0XXA Fall on same level due to ice and snow, initial encounter; Y93.01 Activity, walking, marching and hiking; Y92.410 Unspecified street and highway as the place of occurrence of the external cause
CPT/HCPCS: 70450; 71045; 72125; 73030; 99284; 99291; J0131; J1953; J2060; J2404

== ENCOUNTER 2025-01-11 11:55 | Outpatient (CLI) | payer MEDICARE, BC, SELFPAY | END 2025-01-11 11:56 | disposition home or self-care (01) | PROVIDERS: PCP Family Medicine; Visit Provider Emergency Medicine Emergency Medical Services | DX: S06.5XAA Traumatic subdural hemorrhage with loss of consciousness status unknown, initial encounter (principal) | CPT/HCPCS: A0425; A0427 ==

== ENCOUNTER 2025-06-11 16:00 | Outpatient (RCR) | payer MEDICARE, BC, SELFPAY | END 2025-10-06 16:52 | disposition home or self-care (01) | PROVIDERS: PCP Family Medicine; Visit Provider Family Medicine | DX: H81.12 Benign paroxysmal vertigo, left ear (principal); Z51.89 Encounter for other specified aftercare | CPT/HCPCS: 95992; 97110; 97112; 97162 ==

== ENCOUNTER 2025-10-16 22:36 | Emergency (ER) | payer MEDICARE, BC, SELFPAY ==
--- OUTSIDE RECORDS SUMMARY | 2025-10-16 22:39 | XMS_ITS | Encounter Summary ---
Author Organization [facility] Address [address] [place] [id number] Care Team Providers Care Bundle Clerk Name Role Phone Michael Murphy MD Primary Care Provider Michael Murphy MD Unavailable [phone] Adry Wang-C Unavailable [phone] Adry Wang-C Unavailable [phone] Michael Murphy MD Unavailable [phone] Shirley Galindo PA-C Unavailable [phone] Adry Wang-C Unavailable [phone] [facility] Primary Care Pr ovider Unavailable Lisette Olmstead-C Unavailable +1- Lisette Olmstead-C Unavailable [phone] Brenda Benoit MD Primary Care Provider Unava ilable Lisette Olmstead-C Unavailable +1- Lisette Olmstead-C Unavailable +1- Reason for Visit * Reason Onset Date Comments MyChart Communication 03/05/2013 Encounter Details Date Type Department Care Team (Late st Contact Info) Description 03/05/2013 MyC Medical Advice [address] [phone] Michael Murphy MD [address] [place] [id number] MyChart Communication Social History Tobacco Use Types Packs/Day Years Used Date Smoking Tobacco: Never Smokeless Tobacco: Never Alcohol Use Standard Drinks/Week Comments Yes 0 (1 standard drink = 0.6 oz pur e alcohol) seldom Comments No Sex and Gender Information Value Date Recorded Sex Assigned at Female 12/07/2021 7:51 AM [employer]EL HAND[employer] Legal Sex Female 3:22 AM [employer]EL HAND[employer]ER Gender Identity Female 12/07/2021 7:51 AM 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 Thank you! Denita Peña, RN [facility] documented in this encounter Plan of Treatment Not on file documented as of this encounter Visit Diagnoses Not on filedocumented in this encounter Care Teams Bundle Clerk Relationship Specialty Start Date End Date Michael Murphy MD [address] [place] [id number] PCP - General 05/24/03 11/06/21 Michael Murphy MD [address] [place] [address] PCP - Assigned PCP 12/30/08 10/18/18 Adry Wang PA-C [address] [place] [address] [place] [address] PCP - Assigned PCP 10/19/18 01/20/[address] [address] PCP - General 11/07/21 02/22/23 Brenda Benoit MD [address] [place] [address] PCP - General Family Medicine 09/27/23 Adry Wang PA-C [address] [place] [address] [place] [address] Assigned PCP 10/19/18 03/21/19 Michael Murphy MD [address] [place] [address] Assigned PCP 03/22/19 10/15/20 Shirley Galindo PA-C [address] [place] [address] Assigned PCP 10/16/20 02/18/21 Adry Wang PA-C [address] [place] [address] CAYLA MALONE [address] Assigned PCP 02/19/21 03/25/21 Lisette Olmstead PA-C [address] [place] [address] Physician Communication Consultant Urology 11/17/21 Lisette Olmstead PA-C [address] [place] [address] Assigned Surgical Provider 12/10/21 Lisette Olmstead PA-C [address] [place] [address] Physician Communication Consultant Urology 10/08/24 Lisette Olmstead PA-C [address] [place] [address] Physician Communication Consultant Urology 12/28/24 documented as of this encounter
--- OUTSIDE RECORDS SUMMARY | 2025-10-16 22:39 | XMS_ITS | Clinical Summary ---
Author Organization [facility] Address [address] [place] [id number] Care Team Providers Care Component Assembler Name Role Phone Kaycee, Brenda Munoz MD [...] billion Taking two daily 0 3 Active curcumin-phosphati dylcholine 500 mg cap Take by mouth. 0 2 Active medium chain triglycerides (MCT Oil) 14 gram-120 kcal/15 mL oil Take by mouth. 0 2 Active traZODone (DESYREL) 50 mg tabletIndications: Insomnia, idiopathic Take 3 Tablets (150 mg) by mouth at bedtime if needed for Sleep. 270 Tablet 3 5 Active propranoloL (INDERAL) 20 mg tabletIndications: Tremor, essential Take 1.5 Tablets (30 mg) by mouth once daily. 135 Tablet 3 5 Active bz-zpqszxy-zgm-iro n fm-FA-vitK (One-A-Day Women's Complete(vK)) 18 mg-400 mcg- 25 mcg tab Take by mouth. Active amLODIPine (NORVASC) 5 mg tabletIndications: HTN (hypertension) Take 1 Tablet (5 mg) by mouth once daily. 90 Tablet 3 5 Active rosuvastatin (CRESTOR) 10 mg tabletIndications: Hyperlipidemia, unspecified hyperlipidemia type Take 1 Tablet (10 mg) by mouth at bedtime. 90 Tablet 3 5 Active ketoconazole 2 % creamIndications:S eborrheic dermatitis Apply topically to affected area(s) two times daily. 60 g 5 Active Active Problems Problem Noted Date [...] Encounters Date Type Department Care Team Description 08/06/2025 9:15 AM CDT Office Visit [facility] [address] [place] [address] Brenda Benoit MD Medicare ANNUAL (subsequent) Visit (74 yr/Still having issues from her fall in Dec; dizziness, stimuli issues. /One time had a pain in her jaw and neck, last for about two minutes about a month ago, just doing normal chores around the house./Fatigue by 2:00 in the afternoon feels like she used to at 8:00pm/Pulse in ears, feel and hear./Abdomin seems to have grown, always had a flat stomach but now does not./Scratchy throat for years, uses Ricola all the time) 08/05/2025 10:15 AM CDT Nurse/Clinic Staff Only [facility] [address] [place] [address] Immunization/Injecti on (FLU SHOT (FLUAD) ); Immunization/Injecti on 08/05/2025 Travel from Last 3 Months Immunizations Immunization Administration Dates Next Due AMB INFLUENZA IIV3 (AGE 65+ YRS) PF (Flu Clinic Only) 09/07/2013 COVID-19 vaccine (Moderna 100mcg/0.5mL) PF, MDV 09/12/2021,01/20/2021,12/23/2020 COVID-19 vaccine (Moderna 50 mcg/0.5mL) 12YO+ BIVALENT PF, MDV 09/12/2022 COVID-19 vaccine (Pfizer-Bio NTech 30mcg/0.3mL) 12YO+ PETER-SUCROSE PF, MDV 03/14/2022 Hepatitis A (Adult) 03/03/2007 Hepatitis A, Unspecified 03/03/2007,01/24/1996 Hepatitis B (Adult) 05/24/2003,10/06/1996,1995 Hepatitis B, Unspecified 05/24/2003 Inactivated Polio Vaccine 08/09/2009 Influenza A (H1N1), Inactivated 09/28/2009 Influenza, High-dose Inactivated 018,10/14/2017,07/27/2016,08/22 Influenza, High-dose Quadriv alent Inactivated 07/17/2022 Influenza, IIV3 (Age >=3 years) 08/21/2011,11/24,10/11/2009 Influenza, IIV4 08/02/2014 Influenza, Inactivated AIIV4 (Age 65+ Years) Preserv Free 07/30/2023,08/07/2021 Influenza, Inactivated IIV3 (Age 65+ Years) Preserv Free 08/05/2025,08/12/2024 Pneumococcal Poly,23-Valent (Pneumovax) 07/27/2016 Pneumococcal conj 13-Valent (Prevnar 13) 03/19/2015 RSV, Recombinant ADJ Reconst ituted (Arexvy 120MCG/0.5mL) 10/18/2023 Td, Preservative Free (age >= 7 Years) 6 Tdap 07/27/2016,03/03/2007 Tuberculin Skin Test, Unspecified 05/24/2003 [...] Answer Date Recorded PHQ-2 TOTAL SCORE 0 08/06/2025 Social Connections Answer Date Recorded Do you often feel lonely or isolated from those around you? 0 01/18/2025 Alcohol Use Answer Date Recorded How often do you have a drink containing alcohol ? 0 08/06/2025 Average Number of Drinks Not on file 025 Frequency of Binge Drinking Not on file 07/19 Financial Resource Strain Answer Date R ecorded Difficulty of Paying Living Expenses 3 01/18/2025 Difficulty of Paying Living Expenses Not on file 01/18/2025 Food Insecurity Answer Date Recorded Do you worry your food will run out before you are able to buy more? 1 01/18/2025 Transportation Needs Answer Date Record ed Does lack of transportation keep you from medica l appointments? 1 01/18/2025 Does lack of transportation keep you from work, meetings or getting things that you need? 1 01/18/2025 Housing Stability Answer Date Recorded What is your housing situation today? 1 01/18/2025 Utilities Answer Date Recorded Do you have trouble paying f or utilities (for example, heat, electricity, water, phone)? 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 Not on file Not on file Obstetrics History Last Filed Vital Signs Vital Sign Reading Time Taken Comments Blood Pressure 135/65 08/06/2025 9:30 AM CDT Pulse 40 08/06/2025 9:30 AM CDT Temperature 36.7 C (98.1 F) 04/17/2022 2:06 PM CDT Respiratory Rate 16 02/07/2023 4:25 PM CDT Oxygen Saturation 98% 08/06/2025 9:30 AM CDT Inhaled Oxygen Concentration - - Weight 78.5 kg (173 lb) 08/06/2025 9:30 AM CDT Height 166.4 cm (5' 5.5) 08/06/2025 9:30 AM CDT Body Mass Index 28.35 08/06/2025 9:30 AM CDT Plan of Treatment Health Maintenance Due Date Last Done Comments Tetanus booster 07/27/2026 07/27/2016, 02/16, 01/24/1996 BMI (ht and wt on same day) for age 18+ 08/06/2026 08/06/2025, 01/15/2024, 07/25/2023, Additional history exists Depression screening for age 12+ 08/06/2026 08/06/2025, 01/15/2024, 09/20/2022, Additional history exists Medicare Wellness for age 65+ 08/07/2026, 01/15/2024, 09/20/2022 Colonoscopy through age 75 02/07/203002/07, 02/07/2023, 02/07/2023, Additional history exists Lipids for age 45-75 08/06/2030 08/06/2025, 01/28/2024, 09/20/2022 Hepatitis B series for 19+ Completed 05/24, 05/24/2003, 10/06/1996, Additional history exists Pneumococcal series for age 50+ Completed 6, 03/19/2015 Zoster (shingles) series for age 50+ Completed 08/21/2019, 07/20/2019, 08/21/2011 Hepatitis C screening for ag e 18-79 Completed 09/20/2022 RSV vaccine for adults or Completed 10/18/2023 DEXA/DXA scan for age 65+ Completed 2023, 10/18/2022, 08/07/2021, Additional history exists Influenza Vaccine Completed 08/05/2025, , 07/30/2023, Additional history exists Procedures Procedure Name Priority Date/Time Associated Diagnosis Comments T4,FREE Add On 08/06/2025 10:21 AM CDT Hyperthyroidism CBC WITH AUTO DIFFERENTIAL Routine 08/06/2025 10:21 AM CDT Fatigue, unspecified type TSH Routine 08/06/2025 10:21 AM CDT Fatigue, unspecified type VITAMIN B12 Routine 08/06/2025 10:21 AM CDT Fatigue, unspecified type FERRITIN Routine 08/06/2025 10:21 AM CDT Fatigue, unspecified type Other specified nutritional anemias CBC WITH AUTO DIFFERENTIAL Routine 08/06/2025 10:21 AM CDT Fatigue, unspecified type LIPID PANEL W REFLEX MEASURED LDL Routine 08/06/2025 10:21 AM CDT Hyperlipidemia, unspecified hyperlipidemia type BASIC METABOLIC PANEL Routine 08/06/2025 10:21 AM CDT HTN (hypertension) XR DXA BONE DENSITY 2 SITES AXIAL Routine 10/28/2024 9:54 AM SENIOR UI UX DEVELOPER Primary malignant neoplasm of upper inner quadrant of female breast, left (HC) Osteoporosis Postmenopausal state COLONOSCOPY SCREENING Routine 02/07/2023 2:55 PM CDT Screening for colon cancer ANTI HCV Routine 09/20/2022 10:41 AM CDT Need for hepatitis C screening test from Last 3 Months or Most Recently Relevant to Health Maintenance Results * CBC WITH AUTO DIFFERENTIAL (08/06/2025 10:21 AM CDT) WHITE BLOOD CELL COUNT 5.6 3.8 - 10.8 Thousand/u L 08/07/2025 3:44 AM CDT [facility] RED BLOOD CELL COUNT 4.19 3.80 - 5.10 Million/uL 08/07/2025 3:44 AM CDT [facility] HEMOGLOBIN 13.1 11.7 - 15.5 g/dL 08/07/2025 3:44 AM CDT [facility] HEMATOCRIT 38.7 35.0 - 45.0 % 08/07/2025 3:44 AM CDT [facility] MCV 92.4 80.0 - 100.0 fL 08/07/2025 3:44 AM CDT [facility] MCH 31.3 27.0 - 33.0 pg 08/07/2025 3:44 AM CDT [facility] MCHC 33.9 32.0 - 36.0 g/dL 08/07/2025 3:44 AM CDT [facility] Comment: For adults, a slight decrease in the calculated MCHC value (in the range of 30 to 32 g/dL) is most likely not clinically significant; however, it should be interpreted with caution in correlation with other red cell parameters and the patient's clinical condition. RDW 12.5 11.0 - 15.0 % 08/07/2025 3:44 AM CDT [facility] PLATELET COUNT 235 140 - 400 Thousand/u L 08/07/2025 3:44 AM CDT [facility] MPV 9.8 7.5 - 12.5 fL 08/07/2025 3:44 AM CDT [facility] NEUTROPHILS 58 % 08/07/2025 3:44 AM CDT [facility] LYMPHOCYTES 25.9 % 08/07/2025 3:44 AM CDT [facility] MONOCYTES 12.2 % 08/07/2025 3:44 AM CDT [facility] EOSINOPHILS 3.2 % 08/07/2025 3:44 AM CDT [facility] BASOPHILS 0.7 % 08/07/2025 3:44 AM CDT [facility] ABSOLUTE NEUTROPHILS 3248 1500 - 7800 cells/uL 08/07/2025 3:44 AM CDT [facility] ABSOLUTE LYMPHOCYTES 1450 850 - 3900 cells/uL 08/07/2025 3:44 AM CDT [facility] ABSOLUTE MONOCYTES 683 200 - 950 cells/uL 08/07/2025 3:44 AM CDT [facility] ABSOLUTE EOSINOPHILS 179 15 - 500 cells/uL 08/07/2025 3:44 AM CDT [facility] ABSOLUTE BASOPHILS 39 0 - 200 cells/uL 08/07/2025 3:44 AM CDT [facility] Blood BLOOD SPECIMEN / Unknown [facility] / Unknown 08/06/2025 10:21 AM CDT 08/06/2025 10:21 AM CDT us Brenda Benoit MD HEMATOLOGY Final R esult [facility] [address] [address], * LIPID PANEL W REFLEX MEASURED LDL (08/06/2025 10:21 AM CDT) CHOLESTEROL, TOTAL 159 <200 mg/dL 08/07/2025 4:28 AM CDT [facility] TRIGLYCERIDES 88 <150 mg/dL 08/07/2025 4:28 AM CDT [facility] HDL CHOLESTEROL 84 > OR = 50 mg/dL 08/07/2025 4:28 AM CDT [facility] NON HDL CHOLESTEROL 75 <130 mg/dL (calc) 08/07/2025 4:28 AM CDT [facility] Comment: For patients with diabetes plus 1 major ASCVD risk factor, treating to a non-HDL-C goal of <100 mg/dL (LDL-C of <70 mg/dL) is considered a therapeutic option. CHOL/HDLC RATIO 1.9 <5.0 (calc) 08/07/2025 4:28 AM CDT [facility] LDL-CHOLESTEROL 58 mg/dL (calc) 08/07/2025 4:28 AM CDT [facility] Comment: Reference range: <100 Desirable range <100 mg/dL for primary prevention; <70 mg/dL for patients with CHD or diabetic patients with > or = 2 CHD risk factors. LDL-C is now calculated using the Jose calculation, which is a validated novel method providing better accuracy than the Friedewald equation in the estimation of LDL-C. Taurus JIMENEZ et al. FERNIE. 2013;310(85): 0035-6225 (http://education.LeBUZZ/faq/BBO799) Blood BLOOD SPECIMEN / Unknown [facility] / Unknown 08/06/2025 10:21 AM CDT 08/06/2025 10:21 AM CDT us Brenda Benoit MD CHEMISTRY Final R esult Performing Organization Address City/[facility]/ZIP Co de Phone Number [facility] [address] [address], [place] [phone] * (ABNORMAL) TSH (08/06/2025 10:21 AM CDT) TSH 0.34(L) 0.40 - 4.50 mIU/L 08/07/2025 3:44 AM CDT [facility] Blood BLOOD SPECIMEN / Unknown [facility] / Unknown 08/06/2025 10:21 AM CDT 08/06/2025 10:21 AM CDT us Brenda Benoit MD CHEMISTRY Final R esult Performing Organization Address [facility]/ZIP Co de Phone Number [facility] [address] [address], * T4,FREE (08/06/2025 10:21 AM CDT) T4, FREE 1.6 0.8 - 1.8 ng/dL 08/10/2025 5:06 AM CDT [facility] Blood BLOOD SPECIMEN / Unknown [facility] / Unknown 08/06/2025 10:21 AM CDT 08/06/2025 10:21 AM CDT us Brenda Benoit MD CHEMISTRY Final R esult Performing Organization Address [facility] de Phone Number [facility] [address] [address], [place] [phone] * FERRITIN (08/06/2025 10:21 AM CDT) FERRITIN 100 16 - 288 ng/mL 08/07/2025 3:44 AM CDT [facility] Blood BLOOD SPECIMEN / Unknown [facility] / Unknown 08/06/2025 10:21 AM CDT 08/06/2025 10:21 AM CDT Brenda Benoit MD CHEMISTRY Final R esult Performing Organization Address [facility] Co de Phone Number [facility] [address] [address], [place] [phone] * VITAMIN B12 (08/06/2025 10:21 AM CDT) VITAMIN B12 767 200 - 1100 pg/mL 08/07/2025 4:16 AM CDT [facility] Blood BLOOD SPECIMEN / Unknown [facility] / Unknown 08/06/2025 10:21 AM CDT 08/06/2025 10:21 AM CDT us Brenda Benoit MD CHEMISTRY Final R esult Performing Organization Address [facility] Co de Phone Number [facility] [address] [address], [place] [phone] * BASIC METABOLIC PANEL (08/06/2025 10:21 AM CDT) SODIUM 141 135 - 146 mmol/L 08/07/2025 4:28 AM CDT [facility] POTASSIUM 4.3 3.5 - 5.3 mmol/L 08/07/2025 4:28 AM CDT [facility] CARBON DIOXIDE 31 20 - 32 mmol/L 08/07/2025 4:28 AM CDT [facility] GLUCOSE 97 65 - 99 mg/dL 08/07/2025 4:28 AM CDT [facility] Comment: Fasting reference interval CALCIUM 9.8 8.6 - 10.4 mg/dL 08/07/2025 4:28 AM CDT [facility] CREATININE 0.69 0.60 - 1.00 mg/dL 08/07/2025 4:28 AM CDT [facility] BUN/CREATININE RATIO SEE NOTE: 6 - 22 (calc) 08/07/2025 4:28 AM CDT [facility] Comment: Not Reported: BUN and Creatinine are within reference range. EGFR 90 > OR = 60 mL/min/1. 73m2 08/07/2025 4:28 AM CDT [facility] UREA NITROGEN (BUN) 15 7 - 25 mg/dL 08/07/2025 4:28 AM CDT [facility] ELECTROLYTE BALANCE 7 7 - 17 mmol/L (calc) 08/07/2025 4:28 AM CDT [facility] CHLORIDE 103 98 - 110 mmol/L 08/07/2025 4:28 AM CDT [facility] Blood BLOOD SPECIMEN / Unknown [facility] / Unknown 08/06/2025 10:21 AM CDT 08/06/2025 10:21 AM CDT Brenda Benoit MD CHEMISTRY Final R esult [facility] [address] [address], * (ABNORMAL) XR DXA BONE DENSITY 2 SITES AXIAL (10/28/2024 9:54 AM SENIOR UI UX DEVELOPER) Anatomical Region Laterality Modality Spine, HIPS, HIPL, HIPR Other Impressions 11/03/2024 1:57 PM SENIOR UI UX DEVELOPER Osteopenia. Due to the stability of the [...] to assess therapeutic efficacy. Arina Hudson PA-C [facility] 11/03/2024 Narrative 11/03/2024 1:57 PM SENIOR UI UX DEVELOPER For Patients: Results are automatically released to your [facility] account once available, in compliance with federal regulations. This means that you may see your results before your provider has had a chance to review them. Please allow 2-3 business days for your provider to comment on the results. XR DXA Bone Mineral Density (BMD) EXAM LOCATION: [address] [address] PATIENT NAME: Jesenia Saunders DATE OF : [...] two scanners are made by the same creative services intern. PROCEDURE: Dual-energy x-ray absorptiometry performed with routine [...] Major osteoporotic fracture: 14% Hip fracture: 3.7%. us Zaid STEVENS DEXA Final Re sult * COLONOSCOPY (02/07/2023 2:44 PM CDT) 02/07/2023 2:44 PM CDT Narrative Transcriptions Taurus Shahid MD - 02/07/2023 4:09 PM CDT Patient Name: Jesenia Saunders Procedure Date: 02/07/2023 Gender: Female Date of : 1950 Admit Type: Outpatient Procedure: Colonoscopy Proceduralist: Taurus Shahid MD , Francia Scales RN (Nurse), Herlinda Stein (Nurse) Referring MD: Brenda [...] candidate for conscious sedation. The endoscope [id number] was passed through the anus andadvanced to [...] 2:44 PM Procedure Code(s): --- Professional --- 54462, Colonoscopy, flexible; with removalof tumor(s), polyp(s), or other lesion(s) bysnare technique 56081, 59, Colonoscopy, flexible; withbiopsy, single or multiple Diagnosis Code(s): --- Professional --- Z12.11, Encounter for screening formalignant neoplasm of colon D12.8, Benign neoplasm of rectum CPT copyright 2020 [employer]. All rights reserved. The codes documented in this report are preliminary and upon atomic fuel assembler reviewmay be revised to meet current compliance requirements. Scope In: 3:43:24 PM Scope Withdrawal Time 0 hours 10 minutes 57 seconds Scope Out: 3:59:36 PM us Taurus Shahid MD PROCEDURE ORD Final Res ult * ANTI HCV (09/20/2022 10:41 AM CDT) HEPATITIS C ANTIBODY Non-React leo Non-React leo 09/21/2022 3:13 AM CDT [facility] Comment:Antibodies to HCV no t detected; does not exclude the possibility of exposure to HCV. Blood BLOOD SPECIMEN / Unknown Venipuncture / Unknown 09/20/2022 10:41 AM CDT 09/20/2022 10:41 AM CDT us Brenda Benoit MD SEND OUTS Final R esult [facility] [address] [place] [address], [place] from Last 3 Months or Most Recently Relevant to Health Maintenance Insurance [employer] [place] BLUE MR PB ONLY [employer] MR PB ONLY Care Teams Component Assembler Relationship Specialty Start Date End Date Brenda Beniot MD [address] [place] [address] PCP - General Family Practice 08/05/25
--- OUTSIDE RECORDS SUMMARY | 2025-10-16 22:39 | XMS_ITS ---
Author Name Interface, [id number] lity Address [address] [facility] [address] [address] [facility] Address [address] [facility] [address] [address] Support Name Relationship Address Phone Bao Saunders Spouse Unknown Unavailable Allergies and Adverse Reactions Medication/Group Name Reaction Severity Date Dairy products 12/14/2024 gluten 12/14/2024 sulfalene 12/14/2024 Quinolones no mappable FDB reaction adhesive Rash 12/14/2024 levofloxacin no mappable FDB reaction Plan Date Type Value 12/14/2024 APPOINTMENT OV 20 MIN 10/28/2024 APPOINTMENT OUTSIDE TEST 5 M IN 12/11/2023 APPOINTMENT TREATMENT 1 HR 12/11/2023 APPOINTMENT OV 20 MIN 12/11/2023 APPOINTMENT LAB 15 MIN 06/05/2023 APPOINTMENT OV 30 MIN 12/11/2023 LAB_ORDER iSTAT creatinine panel 10/28/2024 LAB_ORDER DEXA scan Reason for Visit OV 20 [...] iSTAT mg/dl 0.6 1.3 0.8 FINAL [facility] [place], [address] [place] [phone] Phone: () - 12/11 iSTAT creat inine panel GFR estim ate ml/min /1.73m ^2 77.2 GFR is calculate d using the CKD-EPI equation. FINAL [facility] [place], [address] [facility] [place] [phone] Phone: () - 12/19 Mis other lab See blanket maker d 01/27 Misc other lab See blanket maker d Medications Date Name Route Dose Frequency Instructions Start Date End Date Status Fill Status Indication 07/19 Ketocon azole Topical Cream 2 % prn active 10/24 Cetiriz ine Oral daily active 07/19 Magnesi um Glycina te Oral 2.0 daily active 07/19 Probiot ics Oral daily active 05/08 Amlodip ine Oral daily active 12/11 Lactase Oral PRN active 07/19 Choleca lcifero l Oral daily active 07/19 Trazodo ne Oral 3.0 qhs active 07/19 Turmeri c (Curcum in) Oral 2.0 daily active 07/19 Propran olol Oral BID active 07/19 Zinc Oral daily active 07/19 Vitamin B Complex Oral Tablet daily active 10/24 Rosuvas tatin Calcium Oral daily active 05/08 methylp redniso lone 2000 MG Injecti on intraven ously 125.0 mg Re-initiate treatment only upon physician approval. 2023 active Primary malignant neoplasm of female breast (disorder) 05/08 1 ML epineph rine 1 MG/ML Injecti on intramus cularly 0.3 mg once Re-initiate treatment only upon physician approval. 2023 active Primary malignant neoplasm of female breast (disorder) 05/08 Zoledro abhilash Acid IV (Zometa ) intraven ously 4.0 mg once 2023 active Primary malignant neoplasm of female breast (disorder) 05/08 famotid ine 10 MG/ML Injecta ble Solutio n intraven ously 20.0 mg Re-initiate treatment only upon physician approval. 2023 active Primary malignant neoplasm of female breast (disorder) 05/08 diphenh ydramin e hydroch loride 0.5 MG/ML Injecta ble Solutio n intraven ously 50.0 mg Re-initiate treatment only upon physician approval. 2023 active Primary malignant neoplasm of female breast (disorder) 05/08 hydroco rtisone 100 MG Injecti on intraven ously 100.0 mg Re-initiate treatment only upon physician approval. 2023 active Primary malignant neoplasm of female breast (disorder) 05/08 hydroco rtisone 100 MG Injecti on intraven ously 100.0 mg Re-initiate treatment only upon physician approval. 2023 active Primary malignant neoplasm of female breast (disorder) 05/08 famotid ine 10 MG/ML Injecta ble Solutio n intraven ously 20.0 mg Re-initiate treatment only upon physician approval. 2023 active Primary malignant neoplasm of female breast (disorder) 05/08 diphenh ydramin e hydroch loride 0.5 MG/ML Injecta ble Solutio n intraven ously 50.0 mg Re-initiate treatment only upon physician approval. 2023 active Primary malignant neoplasm of female breast (disorder) 05/08 1 ML epineph rine 1 MG/ML Injecti on intramus cularly 0.3 mg once Re-initiate treatment only upon physician approval. 2023 active Primary malignant neoplasm of female breast (disorder) 05/08 methylp redniso lone 2000 MG Injecti on intraven ously 125.0 mg Re-initiate treatment only upon physician approval. 2023 active Primary malignant neoplasm of female breast (disorder) 06/07 letrozo le 2.5 MG Oral Tablet orally 1.0 tablet daily 2022 active Primary malignant neoplasm of female breast (disorder) 03/27 famotid ine 10 MG/ML Injecta ble Solutio n intraven ously 20.0 mg Re-initiate treatment only upon physician approval. 2022 active Primary malignant neoplasm of female breast (disorder) 03/27 diphenh ydramin e hydroch loride 0.5 MG/ML Injecta ble Solutio n intraven ously 50.0 mg Re-initiate treatment only upon physician approval. 2022 active Primary malignant neoplasm of female breast (disorder) 03/27 1 ML epineph rine 1 MG/ML Injecti on intramus cularly 0.3 mg once Re-initiate treatment only upon physician approval. 2022 active Primary malignant neoplasm of female breast (disorder) 03/27 methylp redniso lone 2000 MG Injecti on intraven ously 125.0 mg Re-initiate treatment only upon physician approval. 2022 active Primary malignant neoplasm of female breast (disorder) 03/27 hydroco rtisone 100 MG Injecti on intraven ously 100.0 mg Re-initiate treatment only upon physician approval. 2022 active Primary malignant neoplasm of female breast (disorder) 03/27 1 ML epineph rine 1 MG/ML Injecti on intramus cularly 0.3 mg once Re-initiate treatment only upon physician approval. 2021 active Primary malignant neoplasm of female breast (disorder) 03/27 diphenh ydramin e hydroch loride 0.5 MG/ML Injecta ble Solutio n intraven ously 50.0 mg Re-initiate treatment only upon physician approval. 2021 active Primary malignant neoplasm of female breast (disorder) 03/27 methylp redniso lone 2000 MG Injecti on intraven ously 125.0 mg Re-initiate treatment only upon physician approval. 2021 active Primary malignant neoplasm of female breast (disorder) 03/27 famotid ine 10 MG/ML Injecta ble Solutio n intraven ously 20.0 mg Re-initiate treatment only upon physician approval. 2021 active Primary malignant neoplasm of female breast (disorder) 03/27 hydroco rtisone 100 MG Injecti on intraven ously 100.0 mg Re-initiate treatment only upon physician approval. 2021 active Primary malignant neoplasm of female breast (disorder) 07/19 1 ML epineph rine 1 MG/ML Injecti on intramus cularly 0.3 mg once Re-initiate treatment only upon physician approval. 2021 active Primary malignant neoplasm of female breast (disorder) 07/19 famotid ine 10 MG/ML Injecta ble Solutio n intraven ously 20.0 mg Re-initiate treatment only upon physician approval. 2021 active Primary malignant neoplasm of female breast (disorder) 07/19 hydroco rtisone 100 MG Injecti on intraven ously 100.0 mg Re-initiate treatment only upon physician approval. 2021 active Primary malignant neoplasm of female breast (disorder) 07/19 diphenh ydramin e hydroch loride 0.5 MG/ML Injecta ble Solutio n intraven ously 50.0 mg Re-initiate treatment only upon physician approval. 2021 active Primary malignant neoplasm of female breast (disorder) 07/19 methylp redniso lone 2000 MG Injecti on intraven ously 125.0 mg Re-initiate treatment only upon physician approval. 2021 active Primary malignant neoplasm of female breast (disorder) 07/19 1 ML epineph rine 1 MG/ML Injecti on intramus cularly 0.3 mg once Re-initiate treatment only upon physician approval. 2020 active Primary malignant neoplasm of female breast (disorder) 07/19 hydroco rtisone 100 MG Injecti on intraven ously 100.0 mg Re-initiate treatment only upon physician approval. 2020 active Primary malignant neoplasm of female breast (disorder) 07/19 diphenh ydramin e hydroch loride 0.5 MG/ML Injecta ble Solutio n intraven ously 50.0 mg Re-initiate treatment only upon physician approval. 2020 active Primary malignant neoplasm of female breast (disorder) 07/19 methylp redniso lone 2000 MG Injecti on intraven ously 125.0 mg Re-initiate treatment only upon physician approval. 2020 active Primary malignant neoplasm of female breast (disorder) 07/19 famotid ine 10 MG/ML Injecta ble Solutio n intraven ously 20.0 mg Re-initiate treatment only upon physician approval. 2020 active Primary malignant neoplasm of female breast (disorder) Problems Diagnosis Status Date of Diagnosis Resolution Date Multiple joint pain (finding) Active Osteoporosis (disorder) Active Estrogen receptor positive status [ER+] Active Long-term current use of shelby matase inhibitor (situation) Active Primary malignant neoplasm o f female breast (disorder) Active 12/12/2015 Disorder of bone (disorder) Active Osteopenia (disorder) Active Dyspareunia (finding) Active Hypertensive disorder, syste laura arterial (disorder) Active Hyperlipidemia (disorder) Active Postmenopausal state (finding) Active History of malignant neoplas m of breast (situation) Active Vital Signs Date Type Value 06/05/2023 [...] Weight 172.20 12/11/2023 Pain Scale 3.00 12/14/2024 Oxygen Saturation 97.00 12/14/2024 Body Temperature 97.20 12/14/2024 Heart Beat 55.00 12/14/2024 Respiratory Rate 16.00 12/14/2024 BSA 1.91 12/14/2024 Height 65.50 12/14/2024 Weight 180.80 12/14/2024 Pain Scale 0.00 12/14/2024 Intravascular Systolic 110 12/14/2024 Intravascular Diastolic 80 12/14/2024 BMI 29.63 Notes Section * Med Onc Follow-up Note Patient Name: DOTTIE SAUNDERS? Date Of : 1950? Today's Provider:?Josselyn Navarro RN, DONOR SERVICES SPECIALIST, MA, AOCN Date of Service:?06/05/2023? Attending Physician:?Zaid Motley (Hematology/Oncology) Referring Provider:? HEMATOLOGY/ MEDICAL ONCOLOGY FOLLOW UP VISIT Reason for Visit Interim visit to evaluate leg pain??most likely related to anastrozole Assessment 1. Stage IA left-sided breast ??? 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 12/22/2015: Bilateral breast MRI performed, which showed known biopsied malignancy at 1 o'clock and11:30; 1 o'clock 1.1 cm and 11:30 at 1 cm. 12/24/2015: Normal bone density reported. 01/05/2016: Final pathology shows three cancers. HER-2/mckay on the final cancer is reported as ratioof 1.2, and ER 75% and AR 75%. Three cancers were identified. Two tumors at 1 o'clock and one at 11:30 region. All were grade 1/3. Margins are negative, at least 1 cm from all margins. DCIS negative.DCIS was seen in the background, less than 1 cm. Third small incidental tumor of 0.2 cm was retested, as documented. So, [id number] (M0 clinically). had L mastectomy. Oncotype DX too ordered. This is showing a Recurrence Score of 12, risk of distant recurrence at 8%, with minimal separation of curves for tamoxifen and tamoxifen and chemotherapy arm. ER 9.6; AR score 7, positive; HER-2/mckay 9.2, negative. } [...] her mother.?? Complete genetic testing done in [place] was negative. Social History She lives with her in [place], this is her 2nd marriage. ??They have 2 daughters and 5 grandchildren. One daughter lives??in [place] and the other lives in [place].?? The 1 daughter??is adopted from [place].?? 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 She has moved multiple times due to her husbands job.?? They have recently lived in [place] and [place], now living in [place].?? Vital Signs Blood pressure: 122/80, Pulse: 50, Temperature: 97.7 F, Respirations: 18, O2 sat: 98%, Pain Scale: 0, Height: 65.5 in, Weight: 171.1 lb, BSA: 1.86, BMI: 28.04 kg/m2 Covid-19 vaccine (Moderna) (08/02/2021), Elsewhere; Covid-19 vaccine (Moderna) (11/18/2020), Elsewhere; Covid-19 vaccine (Pfizer) (03/27/2022); Covid-19 vaccine ([employer]) (10/24/2022); Flu vaccine - Adult (10/24/2022); Flu [...] T1c, pN0, M0, G1, ER Status: Positive, AR Status: Positive) Date of Dx:12/12/2015 Histopathologic Type: [...]
--- OUTSIDE RECORDS SUMMARY | 2025-10-16 22:39 | XMS_ITS | Encounter Summary ---
Author Organization [facility] Address [address] [place] [address] Care Team Providers Care Clerical Aide Name Role Phone Michael Murphy MD Primary Care Provider [phone] Michael Murphy MD Unavailable [phone] Adry Wang-C Unavailable [phone] Adry Wang-C Unavailable +1-4 Michael Murphy MD Unavailable [phone] Shirley Galindo PA-C Unavailable [phone] Adry Wang-C Unavailable [phone] [facility] Primary Care Pr ovider Unavailable Lisette Olmstead-C Unavailable +1- Lisette Olmstead-C Unavailable +1- Brenda Benoit MD Primary Care Provider Unava ilable Lisette Olmstead-C Unavailable +1- Lisette Olmstead-C Unavailable [phone] Encounter Details Date Type Department Care Team (Late st Contact Info) Description 03/11/2007 My[facility] Medical Advice [address] [phone] Kai Murnoe Social History Tobacco Use Types Packs/Day Years Used Date Smoking Tobacco: Never Alcohol Use Standard Drinks/Week Comments Yes 0 (1 standard drink = 0.6 oz pur e alcohol) occasional Comments No Sex and Gender Information Value Date Recorded Sex Assigned at Female 12/07/2021 7:51 AM PIPE CONNECTOR Legal Sex Female 3:22 AM PIPE CONNECTOR Gender Identity Female 12/07/2021 7:51 AM PIPE CONNECTOR Sexual Orientation Not on file documented as of this encounter Plan of Treatment Not on file documented as of this encounter Visit Diagnoses Not on filedocumented in this encounter Care Teams Clerical Aide Relationship Specialty Start Date End Date Michael Murphy MD [address] [place] [address] PCP - General 05/24/03 11/06/21 Michael Murphy MD [address] [place] [address] PCP - Assigned PCP 12/30/08 10/18/18 Adry Wang PA-C [address] [place], [place] [address] [address] PCP - Assigned PCP 10/19/18 01/20/[address] [address] PCP - General 11/07/21 02/22/23 Brenda Benoit MD [address] [facility] [place] [address] PCP - General Family Medicine 09/27/23 Adry Wang PA-C [address] [place] [address] [place] [address] Assigned PCP 10/19/18 03/21/19 Michael Murphy MD [address] [place] [address] Assigned PCP 03/22/19 10/15/20 Shirley Galindo PA-C [address] [place] [address] Assigned PCP 10/16/20 02/18/21 Adry Wang PA-C [address] [facility] [place] [address] Assigned PCP 02/19/21 03/25/21 Lisette Olmstead PA-C [address] [place] [address] Physician [employer] 11/17/21 Lisette Olmstead PA-C [address] [place] [address] Assigned Surgical Provider 12/10/21 Lisette Olmstead PA-C [address] [place] [address] Physician [facility] 10/08/24 Lisette Olmstead PA-C [address] [place] [address] Physician [facility] 12/28/24 documented as of this encounter
--- OUTSIDE RECORDS SUMMARY | 2025-10-16 22:39 | XMS_ITS | Encounter Summary ---
Author Organization [facility] Address [address] [place] [address] Care Team Providers Care Handle Sewer Name Role Phone Michael Murphy MD Primary Care Provider [phone] Michael Murphy MD Unavailable [phone] Adry Wang-C Unavailable [phone] Adry Wang-C Unavailable +1-4 Michael Murphy MD Unavailable [phone] Shirley Galindo PA-C Unavailable [phone] Adry Wang-C Unavailable +[phone] [facility] Primary Care Pr ovider Unavailable Lisette Olmstead-C Unavailable +1- Lisette Olmstead-C Unavailable +1- Brenda Benoit MD Primary Care Provider Unava ilable Lisette Olmstead-C Unavailable +1- Lisette Olmstead-C Unavailable +[phone] Encounter Details Date Type Department Care Team (Late st Contact Info) Description 10/18/[address] [facility] [address] [phone] Michael Murphy MD [address] [place] [address] [id number] Social History Tobacco Use Types Packs/Day Years Used Date Smoking Tobacco: Never Smokeless Tobacco: Never Alcohol Use Standard Drinks/Week Comments Yes 0 (1 standard drink = 0.6 oz pur e alcohol) occasional Comments No Sex and Gender Information Value Date Recorded Sex Assigned at Female 12/07/2021 7:51 AM SECURITY OPERATIONS MANAGER Legal Sex Female 3:22 AM SECURITY OPERATIONS MANAGER Gender Identity Female 12/07/2021 7:51 AM SECURITY OPERATIONS MANAGER Sexual Orientation Not on file documented as of this encounter Plan of Treatment Not on file documented as of this encounter Visit Diagnoses Not on filedocumented in this encounter Care Teams Handle Sewer Relationship Specialty Start Date End Date Michael Murphy MD [address] [place] [address] PCP - General 05/24/03 11/06/21 Michael Murphy MD [address] [place] [address] PCP - Assigned PCP 12/30/08 10/18/18 Adry Wang PA-C [address] [place] [address] [place] [address] PCP - Assigned PCP 10/19/18 01/20/[address] [address] PCP - General 11/07/21 02/22/23 Brenda Benoit MD [address] [facility] [place] [address] PCP - General Family Medicine 09/27/23 Adry Wang PA-C [address] [place] [address] [place] [address] Assigned PCP 10/19/18 03/21/19 [place] [address] [place] [address] [id number] Assigned PCP 03/22/19 10/15/20 Shirley Galindo PA-C [address] [place] [address] Assigned PCP 10/16/20 02/18/21 Adry Wang PA-C [address] [facility] [place] [address] Assigned PCP 02/19/21 03/25/21 Lisette Olmstead PA-C [address] [place] [address] Physician [employer] Urology 11/17/21 Lisette Olmstead PA-C [address] [place], [place] [address] Assigned Surgical Provider 12/10/21 Lisette Olmstead PA-C [address] [place], [place] [address] Physician [employer] [facility] 10/08/24 Lisette Olmstead PA-C [address] [place], [place] [address] Physician [employer] U[facility] 12/28/24 documented as of this encounter
--- OUTSIDE RECORDS SUMMARY | 2025-10-16 22:39 | XMS_ITS | Clinical Summary ---
Author Organization [facility] Address [address] [place] [address] Care Team Providers Care Pressurizer Name Role Phone Lisette Olmstead-C Unavailable Lisette Olmstead-Fina Unavailable [phone] Brenda Benoit MD Primary Care Provider Unava ilable Lisette Olmstead-C Unavailable [phone] Lisette Olmstead-Fina Unavailable [phone] Allergies Active Allergy Reactions Criticality Noted Date [...] 12/11/2023 Nsaids 01/15/2019 Hot red blotches Medications omega 3 1000 MG CAPS Take 1 g by mouth daily 90 capsule 12/30/2015 Active Misc Natural Products (TURMERIC CURCUMIN) CAPS Take 1,330 mg by mouth 12/30/2015 Active cholecalciferol (VITAMIN D) 1000 UNIT tablet Take 1,000 Units by mouth daily 100 tablet 3 07/27/2016 Active magnesium 100 MG CAPS Take 2 capsules by mouth daily 07/27/2016 Active propranolol HCl 60 MG TABSIndications :Tremor, essential TAKE 1 TABLET BY MOUTH ONCE EVERY DAY . 90 tablet 2 01/15/2018 Active Multiple Vitamins-Minera ls (ZINC PO) Take 54 mg by mouth Active traZODone (DESYREL) 50 MG tablet Take 150 mg by mouth At Bedtime Active amLODIPine (NORVASC) 5 MG tablet Take 5 mg by mouth daily 11/29/2022 Active rosuvastatin (CRESTOR) 10 MG tablet Take 10 mg by mouth daily 10/26/2022 Active POTASSIUM CITRATE PO Take 200 mg by mouth daily Active Psyllium-Calciu m (METAMUCIL PLUS CALCIUM) CAPS Take 2 capsules by mouth 2 times daily Active calcium citrate-vitamin D (CITRACAL) 200-6.25 MG-MCG TABS per tablet Take 3 tablets by mouth 2 times daily Active Active Problems Problem Noted Date [...] 02/25/2003 08/07/2010 Cyst of thyroid 02/25/2003 08/07/2010 Immunizations Immunization Administration Dates Next Due HEPA 03/03/2007,01/24/1996 HepB [...] PHQ-2 Answer Date Recorded PHQ-2 Score 0 03/22/2025 Adolescent Education Answer Date Record ed Getting School Help Needed Not on file 08/18 Comments No Sex and Gender Information Value Date Recorded Sex Assigned at Female 12/07/2021 7:51 AM SUPERVISOR SAWING AND ASSEMBLY Legal Sex Female 3:22 AM SUPERVISOR SAWING AND ASSEMBLY Gender Identity Female 12/07/2021 7:51 AM SUPERVISOR [employer]WING [employer] ASSEMBLY Sexual Orientation Not on file 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 on file Not on file Last Filed Vital Signs Vital Sign Reading Time Taken Comments Blood Pressure 96/64 12/19/2023 1:00 PM SUPERVISOR [employer]WING [employer]SEMBLY Pulse 47 11/08/2021 3:30 AM SUPERVISOR [employer]WING AND ASSEMBLY Temperature 36.6 C (97.9 F) 11/07/2021 8:51 PM SUPERVISOR [employer]WING [employer]SEMBLY Respiratory Rate 18 11/07/2021 8:51 PM SUPERVISOR [employer]WING AND ASSEMBLY Oxygen Saturation 96% 11/08/2021 4:12 AM SUPERVISOR [employer]WING AND ASSEMBLY Inhaled Oxygen Concentration - - Weight 76.2 kg (168 lb) 12/19/2023 1:00 PM SUPERVISOR [employer]WING [employer] ASSEMBLY Height 166.4 cm (5' 5.5) 12/19/2023 1:00 PM SUPERVISOR [employer]WING [employer]SEMBLY Body Mass Index 27.53 12/19/2023 1:00 PM SUPERVISOR [employer]WING [employer]SEMBLY Plan of Treatment Health Maintenance Due Date Last Done Comments ADVANCE CARE PLANNING 1950 ANNUAL REVIEW OF HM ORDERS 1950 CT COLONOGRAPHY 1950 FIT 1950 FLEX SIG 1950 sDNA (Cologuard) 1950 LIPID 07/27/2017 07/27/2016, 02/16, 10/04/2010, Additional history exists FALL RISK ASSESSMENT 10/14/2018 10/14/2017, 07/27/2016, 07/21/2015 MAMMO SCREENING 12/12/2019 12/12/2018, 11/18, 12/03/2016, Additional history exists DIABETES SCREENING 11/07/2024 11/07/2021, 0 07/27/2016, 12/30/2015, Additional history exists MEDICARE ANNUAL WELLNESS VISIT 01/15/2025 01/15/2024, 09/20/2022, 10/14/2017 (Not Needed), Additional history exists COVID-19 VACCINE ( season) 2025 10/18/2023, 09/12/2022, 03/14/2022, Additional history exists INFLUENZA VACCINE (#1) 2025 , 07/30/2023, 07/17/2022, Additional history exists DTAP/TDAP/TD VACCINE (3 - Td or Tdap) 07/27/2026 07/27/2016, 03/03/2007, 01/24/1996 DEXA 10/28/2027 10/28/2024, 11/2021, 07/02/2019, Additional history exists COLONOSCOPY 02/07/2033 02/07/2023, 07/2013, 11/26/2012, Additional history exists COLORECTAL CANCER SCREENING 02/07/2033 PNEUMOCOCCAL VACCINE 50+ YEARS Completed 07/27/2016, 03/19/2015 ZOSTER VACCINE Completed 08/21/2019, 12/2018, 08/21/2011 HEPATITIS C SCREENING Completed 09/20/2022, 016 RSV VACCINE Completed 10/18/2023 PHQ-2 (once per calendar year) Completed 03/22/2025, 03/21/2018, 07/27/2016, Additional history exists HPV VACCINE (No Doses Required) Completed MENINGITIS VACCINE Aged Out No longer eligible based on patient's age to complete this topic Procedures Procedure Name Priority Date/Time Associated Diagnosis Comments COMPREHENSIVE METABOLIC PANEL STAT 11/07/2021 9:16 PM SUPERVISOR [employer]WING [employer] ASSEMBLY MA SCREENING RIGHT W/ JEEVAN Routine 12/04/2017 10:15 AM SUPERVISOR [employer]ING [employer]SEMBLY Encounter for screening mammogram for high-risk patient DX BONE DENSITY Routine 07/10/2017 10:13 AM CDT Asymptomatic postmenopausal status LIPID REFLEX TO DIRECT LDL PANEL Routine 07/27/2016 10:33 AM CDT Encounter for routine adult health examination without abnormal findings HEPATITIS C ANTIBODY Routine 03/26/2016 10:50 AM CDT Need for hepatitis C screening test COLONOSCOPY Routine 11/26/2012 7:17 AM SUPERVISOR [employer]WING AND ASSEMBLY from Last 3 Months or Most Recently Relevant to Health Maintenance Results * (ABNORMAL) Comprehensive metabolic panel (11/07/2021 9:16 PM SUPERVISOR [employer]WING AND ASSEMBLY) Sodium 141 133 - 144 mmol/L 11/07/2021 9:45 PM SUPERVISOR [employer]WING AND [employer]SEMBL[employer] [facility] Potassium (POCT) 4.1 3.4 - 5.3 mmol/L 11/07/2021 9:45 PM SUPERVISOR [employer]ING [employer] [facility] Chloride (POCT) 107 94 - 109 mmol/L 11/07/2021 9:45 PM SUPERVISOR [employer]ING [employer] [facility] Carbon Dioxide (CO2) (POCT) 28 20 - 32 mmol/L 11/07/2021 9:45 PM SUPERVISOR [employer]ING [employer] [facility] Anion Gap (POCT) 6 3 - 14 mmol/L 11/07/2021 9:45 PM SUPERVISOR [employer]ING [employer] [facility] Urea Nitrogen (POCT) 19 7 - 30 mg/dL 11/07/2021 9:45 PM SUPERVISOR [employer]ING [employer] [facility] Creatinine 0.87 0.52 - 1.04 mg/dL 11/07/2021 9:45 PM SUPERVISOR [employer] [facility] Calcium 9.7 8.5 - 10.1 mg/dL 11/07/2021 9:45 PM SUPERVISOR [employer] [facility] Glucose (POCT) 143(H) 70 - 99 mg/dL 11/07/2021 9:45 PM SUPERVISOR [employer] [facility] Alkaline Phosphatase 88 40 - 150 U/L 11/07/2021 9:45 PM SUPERVISOR [employer] [facility] AST 23 0 - 45 U/L 11/07/2021 9:45 PM SUPERVISOR [employer]ING [employer] [facility] ALT 31 0 - 50 U/L 11/07/2021 9:45 PM SUPERVISOR [employer] [facility] Protein Total 7.4 6.8 - 8.8 g/dL 11/07/2021 9:45 PM SUPERVISOR [employer]ING [employer] [facility] Albumin (POCT) 4.0 3.4 - 5.0 g/dL 11/07/2021 9:45 PM SUPERVISOR [employer]ING [employer] [facility] Bilirubin Total 0.3 0.2 - 1.3 mg/dL 11/07/2021 9:45 PM [employer]PER[employer] [facility] GFR Estimate 71 >60 mL/min/1.7 3m2 11/07/2021 9:45 PM [employer] [facility] Comment:Effective October 192020 eGFRcr in adults is calculated using the 2020 CKD-EPI creatinine equation which includes age and gender (Brielle et al., NEJM, DOI: 10.1056/INTMmb8296518) Blood STRUCTURE OF LEFT UPPER LIMB / Unknown Venipuncture / Unknown 11/07/2021 9:16 PM SUPERVISOR [employer]ING [employer] ASSEMBLY 11/07/2021 9:22 PM SUPERVISOR [employer]ING [employer]SEMBLY us Connor Blum MD LAB - BLOOD ORDERABLES Fi nal Result LABORATORY [facility] [address] [facility] Lab (1st floor, no room number) [place] [address], [facility] [phone] * MA Screen Right w/Jeevan (12/04/2017 10:15 AM SUPERVISOR [employer]WING [employer] ASSEMBLY) Anatomical Region Laterality Modality Breast Bilateral Mammography Impressions 12/04/2017 10:19 AM SUPERVISOR [employer]ING [employer] ASSEMBLY IMPRESSION: BI-RADS CATEGORY: 1 - NEGATIVE. RECOMMENDED FOLLOW-UP: Annual Mammography. ALEXIS PRO MD Narrative 12/04/2017 10:19 AM SUPERVISOR [employer]WING [employer] ASSEMBLY MA SCREENING RIGHT W/ JEEVAN 12/04/2017 10:15 [...] RECOMMENDED FOLLOW-UP: Annual Mammography. ALEXIS PRO MD Zaid Motley MD IMG MAMMOGRAPHY ORDERABLES Final Result * DX Hip/Pelvis/Spine (07/10/2017 10:13 AM CDT) Anatomical Region Laterality Modality Dexa Bone Mineral Den sity Narrative 07/19/2017 8:36 AM CDT BONE DENSITOMETRY [address] [address] 07/10/2017 PATIENT: Jesenia Bar Holter CHART: [id number] : 1950 AGE: [age] year old SEX: female REFERRING PROVIDER: Zaid Motley MD PROCEDURE: Bone density scanning was performed using DXA technology of the lumbar spine and hip. Scanning was performed on a [employer] scanner. Reporting is completed in the form [...] 2 years. Izabel Magaña M.D. Electronically signed Zaid Motley MD IMG DEXA ORDERABLES Final Result * (ABNORMAL) Lipid panel reflex to direct LDL (07/27/2016 10:33 AM CDT) Cholesterol 285(H) <200 mg/dL [facility] Comment:Desirable: <200 mg/d l Triglycerides 96 <150 mg/dL [facility] Comment:Fasting specimen HDL Cholesterol 99 >49 mg/dL [facility] LDL Cholesterol Calculated 167(H) <100 mg/dL [facility] Comment: Above desirable: 100-129 mg/dl Borderline High: 130-159 mg/dL High: 160-189 mg/dL Very high: >189 mg/dl Non HDL Cholesterol 186(H) <130 mg/dL [facility] Comment: Above Desirable: 130-159 mg/dl Borderline high: 160-189 mg/dl High: 190-219 mg/dl Very high: >219 mg/dl Blood specimen (specimen) 07/27/2016 10:33 AM CDT 07/27/2016 10:38 AM CDT Michael Murphy MD LAB - BLOOD ORDERABLES Final Result [facility] [address] [place] [address] * Hepatitis C antibody (03/26/2016 10:50 AM CDT) Pathologist [facility] Hepatitis C Antibody Nonreactive Assay performance characteristics have not been established for newborns, infants, and children [facility] Blood specimen (specimen) 03/26/2016 10:50 AM CDT 03/26/2016 10:56 AM CDT us Michael Murphy MD LAB - BLOOD ORDERABLES Final Result [address] [address] * COLONOSCOPY (11/26/2012 7:17 AM SUPERVISOR [employer]WING AND ASSEMBLY) COLONOSCOPY [facility] Patient Name: Jesenia Saunders Procedure Date: 11/26/2012 7:17:05 AM Date of : 1950 Admit Type: Outpatient Age: 62 Gender: Female Attending MD: Katarina Bush MD Procedure: Colonoscopy Indications: Screening for colorectal malignant neoplasm Providers: Katarina Blas MD Referring MD: Michael Murphy MD Medicines: [...] 22 seconds RADIOLOGY RESULTS 11/26/2012 7:17 AM SUPERVISOR [employer]ING [employer]SEMBLY Michael Murphy MD PROCEDURES Final Result RADIOLOGY RESULTS from Last 3 Months or Most Recently Relevant to Health Maintenance Insurance [facility] [place] [employer] MEDICARE [facility] o[employer]az MEDICARE Advance Directives For more information, please contact: [phone] Documents on File Type Date Recorded Patient Delimber Operator Expl anation Advance Directives and Living Will 01/09/2016 11:31 AM HEALTH CARE DIRECTIV E 01/04/2016 * Full Code (Latest Code Status on File) Date Activated Date Inactivated Comments 01/05/2016 4:24 PM 01/06/2016 8:15 PM Care Teams Pressurizer Relationship Specialty Start Date End Date Brenda Benoit MD [address] [place] [address] PCP - General Family Medicine 09/27/23 Lisette Olmstead PA-C [address] [place] [address] Physician Platen Drier Operator Urology 11/17/21 Lisetet Olmstead PA-C [address] [place] [address] Assigned Surgical Provider 12/10/21 Lisette Olmstead PA-C [address] [place] [address] Physician Platen Drier Operator Urology 10/08/24 Lisette Olmstead PA-C [address] [place] [address] Physician Platen Drier Operator Urology 12/28/24
--- OUTSIDE RECORDS SUMMARY | 2025-10-16 22:39 | XMS_ITS | Clinical Summary ---
Author Organization [facility] Address [address] [place] [address] Care Team Providers Care Nurse Healthcare Manager Name Role Phone Unavailable Primary Care Provider Unavailabl e Allergies Active Allergy Reactions Criticality Noted Date Comments Adhesive Anxiety,Rash Low 01/09/2019 Casein 12/11/2023 Gluten Protein Diarrhea,Nausea Only 11/18/2007 Lactase Diarrhea 06/24/2024 Lactose Diarrhea,GI intolerance 11/18/2021 Levofloxacin Edema,Swelling High 02/09/2014 Swelling in left ankle Radha's tendonitis Levofloxacin In D5w Swelling 04/23/2018 tendon Lisinopril Cough 11/29/2022 Nsaids (Non-Steroidal Anti-Inflammatory Drug) 01/15/2019 Hot red blotches Sulfa (Sulfonamide Antibiotics) Muscle Pain,Rash,Elton Salty Syndrome High 11/18/2017 Other Reaction(s): Itching, Pruritus Sulfamethoxazole-Trim ethoprim Rash High 02/26/2018 Patient had been on Bactrim from February 15, 2018, until about February 20, 2018. She restarted Bactrim on February 26, and, about 2.5 hours later, she started experiencing a burning, painful rash on the arms, legs, torso, influenza-like symptoms (fever and body aches), diarrhea and vomiting. Patient had been on Bactrim from February 15, 2018, until about February 20, 2018. She restarted Bactrim on February 26, and, about 2.5 hours later, she started experiencing a burning, painful rash on the arms, legs, torso, influenza-like symptoms (fever and body aches), diarrhea and vomiting. Medications nirmatrelvir-ri tonavir 300 mg (150 mg x 2)-100 mg Therapy PackIndications :COVID-19 Take 300 mg nimatrelvir (2 x 150 mg tablets) with 100 mg ritonavir (1 x 100 mg tablet) with all three tablets taken together by mouth twice daily for 5 days. 30 tablet 4 Active Active Problems No known active problems Social History Tobacco Use Types Packs/Day Years Used Date Smoking Tobacco: Never Assessed Comments Unknown Sex and Gender Information Value Date Recorded Sex Assigned at Not on file Legal Sex Female 4:01 PM CDT Gender Identity Not on file Sexual Orientation Not on file Plan of Treatment Health Maintenance Due Date Last Done Comments Pneumococcal Vaccine: 50+ Years (1 of 1 - PCV) 999 RSV Vaccines (1 - 1-dose 75+ series) 2024
--- OUTSIDE RECORDS SUMMARY | 2025-10-16 22:39 | XMS_ITS | Encounter Summary ---
Author Organization [facility] Address [address] [place] [address] Care Team Providers Care Puffer Tender Name Role Phone Michael Murphy MD Primary Care Provider [phone] Michael Murphy MD Unavailable [phone] Adry Wang-C Unavailable [phone] Adry Wang-Fina Unavailable [phone] Michael Murphy MD Unavailable [phone] Shirley Galindo-C Unavailable [phone] Adry Wang-C Unavailable [phone] [facility], [facility] Primary Care Pr ovider Unavailable Lisette Olmstead PA-C Unavailable +1- Lisette Olmstead PA-C Unavailable +1- Brenda Benoit MD Primary Care Provider Unava ilable Lisette Olmstead PA-C Unavailable +1- Lisette Olmstead PA-C Unavailable +1- Reason for Visit * Reason Onset Date Comments Refill Request 04/04/2015 azithromycin (ZI THROMAX) 250 MG tablet Encounter Details Date Type Department Care Team (Late st Contact Info) Description 04/04/[address] [phone] [place] [address] [place] [address] Refill Request (azithromycin (ZITHROMAX) 250 MG tablet) Social History Tobacco Use Types Packs/Day Years Used Date Smoking Tobacco: Never Smokeless Tobacco: Never Alcohol Use Standard Drinks/Week Comments Yes 0 (1 standard drink = 0.6 oz pur e alcohol) seldom Comments No Sex and Gender Information Value Date Recorded Sex Assigned at Female 12/07/2021 7:51 AM FABRIC AND TEXTILE FACTORY WORKER Legal Sex Female 3:22 AM FABRIC AND TEXTILE FACTORY WORKER Gender Identity Female 12/07/2021 7:51 AM FABRIC AND TEXTILE FACTORY WORKER Sexual Orientation Not on file 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 Kortney Becerra TC documented in this encounter Plan of Treatment Not on file documented as of this encounter Visit Diagnoses Diagnosis Acute sinusitis with symptoms > 10 days- Primary Acute sinusitis, unspecified Cough documented in this encounter Care Teams Puffer Tender Relationship Specialty Start Date End Date Michael Murphy MD [address] [place] [address] PCP - General 05/24/03 11/06/21 Michael Murphy MD [address] [place] [address] PCP - Assigned PCP 12/30/08 10/18/18 Adry Wang PA-C [address] [place] [address] PCP - Assigned PCP 10/19/18 01/20/19 [facility], [address] [address] PCP - General 11/07/21 02/22/23 Brenda Benoit MD [address] [place] [address] PCP - General Family Medicine 09/27/23 Adry Wang PA-C [address] [place] [address] [place] [address] Assigned PCP 10/19/18 03/21/19 Michael Murphy MD [address] [place] [address] Assigned PCP 03/22/19 10/15/20 Shirley Galindo PA-C [address] [place] [id number] Assigned PCP 10/16/20 02/18/21 Adry Wang PA-C [address] [place] [address] [place] [address] Assigned PCP 02/19/21 03/25/21 Lisette Olmstead PA-C [address] [place] [address] Physician Small Kick Press Operator Urology 11/17/21 Lisette Olmstead PA-C [address] [place] [address] Assigned Surgical Provider 12/10/21 Lisette Olmstead PA-C [address] [place] [address] Physician Small Kick Press Operator Urology 10/08/24 Lisette Olmstead PA-C [address] [place] [address] [place] [address] Physician Small Kick Press Operator Urology 12/28/24 documented as of this encounter
--- OUTSIDE RECORDS SUMMARY | 2025-10-16 22:39 | XMS_ITS | Encounter Summary ---
Author Organization [facility] Address [address] [place] [address] Care Team Providers Care Wool Sorter Name Role Phone Michael Murphy MD Primary Care Provider [phone] Michael Murphy MD Unavailable [phone] Adry Wang-C Unavailable [phone] Adry Wang-C Unavailable +[phone] Michael Murphy MD Unavailable [phone] Shirley Galindo PA-C Unavailable [phone] Adry Wang-C Unavailable [phone] [facility] Primary Care Pr ovider Unavailable Lisette Olmstead-C Unavailable +1- Lisette Olmstead-C Unavailable +1- Brenda Benoit MD Primary Care Provider Unava ilable Lisette Olmstead-C Unavailable +1- Lisette Olmstead-C Unavailable [phone] Encounter Details Date Type Department Care Team (Late st Contact Info) Description 08/07/2010 [facility] Medical Advice [address] [phone] Michael Murphy MD [address] [place] [phone] Social History Tobacco Use Types Packs/Day Years Used Date Smoking Tobacco: Never Alcohol Use Standard Drinks/Week Comments Yes 0 (1 standard drink = 0.6 oz pur e alcohol) occasional Comments No Sex and Gender Information Value Date Recorded Sex Assigned at Female 12/07/2021 7:51 AM SKIVER MACHINE Legal Sex Female 3:22 AM SKIVER MACHINE Gender Identity Female 12/07/2021 7:51 AM SKIVER MACHINE Sexual Orientation Not on file documented as of this encounter Plan of Treatment Not on file documented as of this encounter Visit Diagnoses Not on filedocumented in this encounter Care Teams Wool Sorter Relationship Specialty Start Date End Date Michael Murphy MD [address] [place] [address] PCP - General 05/24/03 11/06/21 Michael Murphy MD [address] [place] [address] PCP - Assigned PCP 12/30/08 10/18/18 Adry Wang PA-C [address] [place] [address] [place] [address] PCP - Assigned PCP 10/19/18 01/20/[address] [address] PCP - General 11/07/21 02/22/23 Brenda Benoit MD [address] [place] [address] PCP - General Family Medicine 09/27/23 Adry Wang PA-C [address] [place] [address] [place] [address] Assigned PCP 10/19/18 03/21/19 [place] [address] [place] [id number] Assigned PCP 03/22/19 10/15/20 Shirley Galindo PA-C [address] [place] [address] 677352 Assigned PCP 10/16/20 02/18/21 Adry Wang PA-C [address] [facility] [place] [address] Assigned PCP 02/19/21 03/25/21 Lisette Olmstead PA-C [address] [place] [address] Physician Stull Hewer Urology 11/17/21 Lisette Olmstead PA-C [address] [place] [address] Assigned Surgical Provider 12/10/21 Lisette Olmstead PA-C [address] [place] [address] Physician Stull Hewer Urology 10/08/24 Lisette Olmstead PA-C [address] [place] [address] Physician Stull Hewer Urology 12/28/24 documented as of this encounter
[2025-10-16 22:44] VITALS: BP 177/120; PULSE 158; RESP 18; O2SAT 97; BMI 27.4
[2025-10-16] MEDS: dilTIAZem 5 MG/ML inj 20 MG IVP (23:03)
--- NOTE | 2025-10-16 23:07 | ED.GENADULT ---
HPI - General Adult General Chief complaint: Chest Pain <Dae Dowell MD - Last Filed: 10/17/25 01:29> Stated complaint: chest pain, right arm pain <Dae Dowell MD - Last Filed: 10/17/25 01:29> Time Seen by Provider: 10/16/25 22:40 <Dae Dowell MD - Last Filed: 10/17/25 01:29> History of Present Illness HPI narrative: This 74-year-old female comes in reporting some discomfort in her chest. She was laying in bed and coughed a few times and then felt some discomfort. She is not reporting any discomfort currently but arrives here with tachycardia and atrial fibrillation. She states that she has not had atrial fibrillation in the past. She does have a history of breast cancer with bilateral mastectomies. She does not have any prior cardiac history. She does not report any nausea, vomiting, lightheadedness, or shortness of breath. <Dae Dowell MD - Last Filed: 10/17/25 01:29> Related Data Home medications: Home Medications ?Medication ?Instructions ?Recorded ?Confirmed amlodipine 5 mg tablet 5 mg PO DAILY 09/06/24 09/06/24 propranolol 20 mg tablet 20 mg PO BID 09/06/24 09/06/24 rosuvastatin 10 mg tablet 10 mg PO QPM 09/06/24 09/06/24 trazodone 50 mg tablet 50 - 150 mg PO QPM PRN 09/06/24 09/06/24 ketoconazole 2 % topical cream applic topical BID 08/16/25 08/16/25 multivitamin 1 tab PO QAM 08/16/25 08/16/25 Previous Rx's ?Medication ?Instructions ?Recorded azithromycin 250 mg tablet See Rx Instructions PO .COMPLEX #6 08/16/25 tabs apixaban 5 mg (74 tabs) tablets in See Rx Instructions PO .COMPLEX 10/17/25 a dose pack (Eliquis DVT-PE Treat #74 ea 30D Start) <Dae Dowell MD - Last Filed: 10/17/25 01:29> Allergies/adverse reactions: Allergies Allergy/AdvReac Type Severity Reaction Status Date / Time levofloxacin (From Levaquin) Allergy Unknown Verified 01/11/25 09:48 Sulfa (Sulfonamide Allergy Unknown Verified 01/11/25 09:48 Antibiotics) gluten Allergy Verified 08/16/25 08:32 lactose Allergy Verified 08/16/25 08:32 <Dae Dowell MD - Last Filed: 10/17/25 01:29> Review of Systems Status of ROS: Reports: 10 or more systems reviewed and unremarkable except as noted in History and below <Dae Dowell MD - Last Filed: 10/17/25 01:29> Narrative: Constitutional: No fevers, no weight gain or loss. Eyes: No discharge. No vision changes. HENT: No congestion, no sore throat, no ear pain. Cardiovascular: Episode of chest discomfort. A rapid heart rate. Respiratory: No shortness of breath, no wheezes, no cough. Gastrointestinal: No abdominal pain, no vomiting, no diarrhea. Genitourinary: No dysuria, no hematuria. Musculoskeletal: Normal range of motion. Skin: No rashes, no pruritis. Neurological: No dizziness, weakness, sensory change, speech change. Endo/Heme/Allergies: No bruising or bleeding. No polydipsia. Pysch: no suicidality, no anxiety, no insomnia. All other systems reviewed and are negative. <Dae Dowell MD - Last Filed: 10/17/25 01:29> [facility] Social History: Social History Smoking Status: Never smoker Do you use any of these nicotine containing products: None Second hand tobacco smoke exposure: No How often do you have a drink containing alcohol: never How often do you have six or more drinks on one occasion: Never AUDIT-C Alcohol total score: 0 Non-prescribed substance use: denies use service: No <Dae Dowell MD - Last Filed: 10/17/25 01:29> Exam Narrative: Exam Narrative: Constitutional: Well-developed, well-nourished, no acute distress. HEENT: Normocephalic, atraumatic. Neck: Normal range of motion. Nontender. Supple. Heart: Irregular. No murmurs. Tachycardia. Intact distal pulses. Lungs: Clear to auscultation. No chest discomfort. No wheezes, rhonchi, or rales. Abdomen: Normal bowel sounds. Nontender. No rebound tenderness. Genitalia: Deferred. Back: No midline tenderness. Normal range of motion. Extremities: Normal range of motion. No injury. Skin: Intact. No rash. Warm. No erythema or pallor. Neurologic: No altered sensation. No weakness. Alert and oriented. Psychiatric: No suicidality. No anxiety or depression. No insomnia. Nursing notes and vitals signs are reviewed. <Dae Dowell MD - Last Filed: 10/17/25 01:29> Const: Vital Signs, click to edit/add: Vital Signs - 24 hr 10/16/25 22:44 10/17/25 00:28 Pulse Rate [Pulse Oximeter] 158 H 158 H Respiratory Rate 18 16 Blood Pressure [Ri ght Upper Arm] 177/120 H 145/71 H Pulse Oximetry 97 98 Oxygen Delivery Me thod Room Air Nasal Cannula Oxygen Flow Rate 2 <Dae Dowell MD - Last Filed: 10/17/25 01:29> Vital Signs, click to edit/add: Vital Signs - 24 hr 10/16/25 22:44 10/17/25 00:28 Pulse Rate [Pulse Oximeter] 158 H 158 H Respiratory Rate 18 16 Blood Pressure [Ri ght Upper Arm] 177/120 H 145/71 H Pulse Oximetry 97 98 Oxygen Delivery Me thod Room Air Nasal Cannula Oxygen Flow Rate 2 <Svitlana Smith MD - Last Filed: 10/17/25 01:46> Course Vital Signs Vital signs: Initial Vital Signs Pulse Rate 158 H 10/16/25 22:44 Respiratory Rate 18 10/16/25 22:44 Blood Pressure 177/120 H 10/16/25 22:44 Blood Pressure Mean 139 H 10/16/25 22:44 Blood Pressure Position Supine 10/16/25 22:44 Pulse Oximetry 97 10/16/25 22:44 Oxygen Delivery Method Room Air 10/16/25 22:44 Vital Signs Pulse Rate 158 H 10/16/25 22:44 Respiratory Rate 18 10/16/25 22:44 Blood Pressure 177/120 H 10/16/25 22:44 Pulse Oximetry 97 10/16/25 22:44 Oxygen Delivery Method Room Air 10/16/25 22:44 Pulse Rate 158 H 10/17/25 00:28 Respiratory Rate 16 10/17/25 00:28 Blood Pressure 145/71 H 10/17/25 00:28 Pulse Oximetry 98 10/17/25 00:28 Oxygen Delivery Method Nasal Cannula 10/17/25 00:28 Oxygen Flow Rate 2 10/17/25 00:28 <Dae Dowell MD - Last Filed: 10/17/25 01:29> Initial Vital Signs Pulse Rate 158 H 10/16/25 22:44 Respiratory Rate 18 10/16/25 22:44 Blood Pressure 177/120 H 10/16/25 22:44 Blood Pressure Mean 139 H 10/16/25 22:44 Blood Pressure Position Supine 10/16/25 22:44 Pulse Oximetry 97 10/16/25 22:44 Oxygen Delivery Method Room Air 10/16/25 22:44 Vital Signs Pulse Rate 158 H 10/16/25 22:44 Respiratory Rate 18 10/16/25 22:44 Blood Pressure 177/120 H 10/16/25 22:44 Pulse Oximetry 97 10/16/25 22:44 Oxygen Delivery Method Room Air 10/16/25 22:44 Pulse Rate 158 H 10/17/25 00:28 Respiratory Rate 16 10/17/25 00:28 Blood Pressure 145/71 H 10/17/25 00:28 Pulse Oximetry 98 10/17/25 00:28 Oxygen Delivery Method Nasal Cannula 10/17/25 00:28 Oxygen Flow Rate 2 10/17/25 00:28 <Svitlana Smith MD - Last Filed: 10/17/25 01:46> Medications Administered Medications: Discontinued Medications Generic Name Dose Route Start Last Admin Trade Name Bonnie PRN Reason Stop Dose Admin Apixaban 10 mg 10/16/25 23:02 10/16/25 23:18 Apixaban 5 Mg Tablet PO 10/16/25 23:03 10 mg ONCE ONE Administration Diltiazem HCl 20 mg 10/16/25 23:02 10/16/25 23:03 Diltiazem 5 Mg/Ml Inj IVP 10/16/25 23:03 20 mg ONCE ONE Administration Sodium Chloride 1,000 mls @ 1,000 mls/hr 10/16/25 23:15 10/16/25 23:17 0.9 % Sodium Chloride 1000 Ml IV 10/17/25 00:14 1,000 mls/hr .Q1H SEDA Administration <Dae Dowell MD - Last Filed: 10/17/25 01:29> Discontinued Medications Generic Name Dose Route Start Last Admin Trade Name Bonnie PRN Reason Stop Dose Admin Apixaban 10 mg 10/16/25 23:02 10/16/25 23:18 Apixaban 5 Mg Tablet PO 10/16/25 23:03 10 mg ONCE ONE Administration Diltiazem HCl 20 mg 10/16/25 23:02 10/16/25 23:03 Diltiazem 5 Mg/Ml Inj IVP 10/16/25 23:03 20 mg ONCE ONE Administration Sodium Chloride 1,000 mls @ 1,000 mls/hr 10/16/25 23:15 10/16/25 23:17 0.9 % Sodium Chloride 1000 Ml IV 10/17/25 00:14 1,000 mls/hr .Q1H SEDA Administration <Svitlana Smith MD - Last Filed: 10/17/25 01:46> Medical Decision Making [facility] Narrative Medical decision making narrative: This patient comes in with new onset of atrial fibrillation with rapid ventricular response. This started just prior to arrival perhaps an hour prior to arriving here. An IV was established where she received 20 mg of diltiazem. This brought control to her rate but did not change the rhythm as it persisted in atrial fibrillation. Lab results returned with reassuring findings. In particular her troponin is in normal range. I did discuss options going forward and the patient did prefer to have synchronized cardioversion. After acquiring informed consent the patient did receive 70 mg of propofol administered by Dr. Smith assisting in this procedure. This brought adequate sedation. Synchronized cardioversion was performed using 150 joules of energy. This brought her back to normal sinus rhythm. The patient recovered rather quickly without incident. She did benefit from some jaw thrust and nasal cannula oxygen during this time. She did receive an oral dose of Eliquis and I provided a prescription for a month's supply. She is advised to follow-up with her primary physician or return if worsening. <Dae Dowell MD - Last Filed: 10/17/25 01:29> Lab Data Labs: Lab Results 10/16/25 10/16/25 Range/Units 22:55 23:03 WBC 4.98 (4.50-11.00) K/uL RBC 4.64 (4.00-5.20) m/uL Hgb 14.3 (12.0-16.0) gm/dL Hct 41.6 (33.0-51.0) % MCV 90 (80-100) fL MCH 31 (26-34) pg MCHC 34 (32-36) gm/dL RDW Coeff of Tony 12.5 (11.5-15.5) % Plt Count 90 L (140-440) K/uL Neut % (Auto) 44.8 (42.0-72.0) % Lymph % (Auto) 43.4 (20-44) % Comal % (Auto) 8.4 (0.0-11.0) % Eos % (Auto) 2.6 (0.0-7.0) % Baso % (Auto) 0.2 (0.0-3.0) % Neut # (Auto) 2.23 (1.7-7.0) K/uL Lymph # (Auto) 2.16 (0.90-2.90) K/uL Comal # (Auto) 0.40 (0.00-0.90) K/UL Eos # (Auto) 0.13 (0.00-0.50) K/uL Baso # (Auto) 0.01 (0.00-0.30) K/uL Abs Immat Gran (auto) 0.03 (0.00-0.30) K/uL Imm/Tot Granulo (auto) 0.6 % Sodium 138 (135-149) mmol/L Potassium 3.6 (3.6-5.1) mmol/L Chloride 95 L (96-114) mmol/L Carbon Dioxide 30 (20-32) mmol/L Anion Gap 13 (7-15) mEq/L BUN 24 (7-30) mg/dL Creatinine 0.9 (0.5-1.5) mg/dL Estimated Creat Clear 45.50 Estimated GFR 67 ml/min Glucose 144 H (60-115) mg/dL Calcium 10.4 (8.4-10.6) mg/dL Magnesium 1.9 (1.5-2.6) mg/dL POC Troponin I High Sensi 10.7 (2.9-13.0) pg/mL <Dae Dowell MD - Last Filed: 10/17/25 01:29> Lab Results 10/16/25 10/16/25 Range/Units 22:55 23:03 WBC 4.98 (4.50-11.00) K/uL RBC 4.64 (4.00-5.20) m/uL Hgb 14.3 (12.0-16.0) gm/dL Hct 41.6 (33.0-51.0) % MCV 90 (80-100) fL MCH 31 (26-34) pg MCHC 34 (32-36) gm/dL RDW Coeff of Tony 12.5 (11.5-15.5) % Plt Count 90 L (140-440) K/uL Neut % (Auto) 44.8 (42.0-72.0) % Lymph % (Auto) 43.4 (20-44) % Comal % (Auto) 8.4 (0.0-11.0) % Eos % (Auto) 2.6 (0.0-7.0) % Baso % (Auto) 0.2 (0.0-3.0) % Neut # (Auto) 2.23 (1.7-7.0) K/uL Lymph # (Auto) 2.16 (0.90-2.90) K/uL Comal # (Auto) 0.40 (0.00-0.90) K/UL Eos # (Auto) 0.13 (0.00-0.50) K/uL Baso # (Auto) 0.01 (0.00-0.30) K/uL Abs Immat Gran (auto) 0.03 (0.00-0.30) K/uL Imm/Tot Granulo (auto) 0.6 % Sodium 138 (135-149) mmol/L Potassium 3.6 (3.6-5.1) mmol/L Chloride 95 L (96-114) mmol/L Carbon Dioxide 30 (20-32) mmol/L Anion Gap 13 (7-15) mEq/L BUN 24 (7-30) mg/dL Creatinine 0.9 (0.5-1.5) mg/dL Estimated Creat Clear 45.50 Estimated GFR 67 ml/min Glucose 144 H (60-115) mg/dL Calcium 10.4 (8.4-10.6) mg/dL Magnesium 1.9 (1.5-2.6) mg/dL POC Troponin I High Sensi 10.7 (2.9-13.0) pg/mL <Svitlana Smith MD - Last Filed: 10/17/25 01:46> ECG Data Attestation: I personally reviewed and interpreted this ECG as follows: <Dae Dowell MD - Last Filed: 10/17/25 01:29> Interpretation: Atrial fibrillation with rapid ventricular response, rate is 159 beats per minute. <Dae Dowell MD - Last Filed: 10/17/25 01:29> Critical Care Time Critical Care Time Critical Care Time: Yes Attestation: The patient required my highest level preparedness to intervene emergently and I personally spent this critical care time directly and personally managing the patient. This critical care time included: Obtaining a history; Examining the patient; Pulse oximetry; Ordering and reviewing of studies; Arranging urgent treatment with development of a management plan; Evaluation of patients response to treatment; Frequent reassessment discussions with other providers. This critical care time was performed to assess and manage the high probability of imminent life-threatening deterioration that could result in multiorgan failure. It was exclusive of separate billable procedures and treating other patients and teaching time. <Dae Dowell MD - Last Filed: 10/17/25 01:29> Total Critical Care Time in Minutes: 30 <Dae Dowell MD - Last Filed: 10/17/25 01:29> Discharge Plan Discharge Clinical Impression: Atrial fibrillation with rapid ventricular response <Dae Dowell MD - Last Filed: 10/17/25 01:29> Patient Disposition: Home w/ Parent or Adult <Dae Dowell MD - Last Filed: 10/17/25 01:29> Condition: Improved <Dae Dowell MD - Last Filed: 10/17/25 01:29> Instructions: A-fib (Atrial Fibrillation) (ED) <Dae Dowell MD - Last Filed: 10/17/25 01:29> Additional Instructions: Take Eliquis as prescribed. Continue other current medications. Follow up with primary physician or return if symptoms are recurrent or worsening. <Dae Dowell MD - Last Filed: 10/17/25 01:29> Prescriptions: New [place] DVT-PE Treat 30D Start 5 mg (74 tabs) tablets,dose pack See Rx Instructions PO .COMPLEX Qty: 74 0RF Rx Instructions: orally per package directions No Action ketoconazole 2 % cream topical BID multivitamin Tablet 1 tab PO QAM azithromycin 250 mg tablet See Rx Instructions PO .COMPLEX Qty: 6 0RF Rx Instructions: For 250 mg dose pack: take 500 mg today (day 1), then 250 mg for 4 days (days 2-5) PO rosuvastatin 10 mg tablet 10 mg PO QPM trazodone 50 mg tablet 50 - 150 mg PO QPM PRN propranolol 20 mg tablet 20 mg PO BID amlodipine 5 mg tablet 5 mg PO DAILY <Dae Dowell MD - Last Filed: 10/17/25 01:29> Follow Up/Referrals: Brenda Benoit MD [Primary Care Provider, [facility]] <Dae Dowell MD - Last Filed: 10/17/25 01:29> Stand Alone Forms: [employer] [facility] Info Instructions <Dae Dowell MD - Last Filed: 10/17/25 01:29> Procedures Procedural Sedation Pre procedure diagnosis: Atrial fibrillation with RVR <Svitlana Smith MD - Last Filed: 10/17/25 01:46> Post procedure diagnosis: Normal sinus rhythm post cardioversion <Svitlana Smith MD - Last Filed: 10/17/25 01:46> Written consent by: patient <Svitlana Smith MD - Last Filed: 10/17/25 01:46> Verification/time out: correct patient, correct procedure and time out performed <Svitlana Smith MD - Last Filed: 10/17/25 01:46> Name of person perfmorming the procedure: Svitlana Smith <Svitlana Smith MD - Last Filed: 10/17/25 01:46> Sedation provider same as procedural provider: No <Svitlana Smith MD - Last Filed: 10/17/25 01:46> Indication: other (AFib with RVR) <Svitlana Smith MD - Last Filed: 10/17/25 01:46> Presedation Evaluation: S: Jesenia is a very pleasant 74-year-old female with history of hyperlipidemia, hypertension who comes to the emergency room with rapid heart rate. Found to be in AFib with RVR. Determined to be candidate for cardioversion by attending physician Dr. Dowell. No previous problems with anesthesia. Last ate at 1930 hours. Dentition intact. No significant respiratory ailments. 0: Alert and oriented. Mentation normal. Heart with a rapid rate. Irregularly irregular rhythm. Lungs are clear bilaterally. Abdomen soft. Lower extremities without significant edema. A: AFib with RVR. P: Plan on cardioversion. Suction, [id number], crash cart standing by. Patient has nasal cannula oxygen with ability to read end-tidal CO2 in place at this time. <Svitlana Smith MD - Last Filed: 10/17/25 01:46> ASA Class: I <Svitlana Smith MD - Last Filed: 10/17/25 01:46> Time of Last PO Intake: 19:30 <Svitlana Smith MD - Last Filed: 10/17/25 01:46> Mallampati classification: I. soft palate, fauces, uvula, pillars visible <Svitlana Smith MD - Last Filed: 10/17/25 01:46> Preparation: court monitor applied, pulse oximeter, capnometry used, supplemental O2 applied, reversal agents at bedside, suction/airway equipment at bedside and IV secured <Svitlana Smith MD - Last Filed: 10/17/25 01:46> IV Propofol dose (mg): 70 <Svitlana Smith MD - Last Filed: 10/17/25 01:46> Patient Tolerated Procedure: well <Svitlana Smith MD - Last Filed: 10/17/25 01:46> Complications: hypoxia (Mild to 88%) <Svitlana Smith MD - Last Filed: 10/17/25 01:46> Interventions: oxygen applied, airway repositioned and assist by BVM (Briefly) <Svitlana Smith MD - Last Filed: 10/17/25 01:46> Additional Comments: Patient tolerated procedure well. Post cardioversion patient did require jaw thrust with a few breasts with [id number] but recovered quickly to O2 sats in the upper 90s. Patient awoke shortly thereafter and is feeling much better. No complaints at this time. <Svitlana Smith MD - Last Filed: 10/17/25 01:46>
[2025-10-16 23:11] LABS: Hematocrit* 41.6 % (33.0-51.0); Hemoglobin* 14.3 gm/dL (12.0-16.0); Immature Granulocytes Abs Auto 0.03 K/uL (0.00-0.30); Immature Granulocytes Pct Auto 0.6 %; Lymphocytes Absolute Auto 2.16 K/uL (0.90-2.90); Mean Corpuscular HGB Conc 34 gm/dL (32-36); Mean Corpuscular Hemoglobin 31 pg (26-34); Mean Corpuscular Volume 90 fL (80-100); RDW Coefficient of Variation % 12.5 % (11.5-15.5); Red Blood Count* 4.64 m/uL (4.00-5.20); White Blood Count* 4.98 K/uL (4.50-11.00)
[2025-10-16] MEDS: APIXABAN 5 MG TABLET 10 MG PO (23:18)
[2025-10-16 23:19] LABS: Slide Review Reflex No
--- OUTSIDE RECORDS SUMMARY | 2025-10-16 23:23 | XMS_ITS ---
Author Name Interface, [id number] lity Address [address] [address] [facility] Address [address] [address] Support Name Relationship Address Phone Bao Saunders [...] [address] [place] [id number] 0 Phone: () - 12/11 iSTAT creat inine panel GFR estim ate ml/min /1.73m ^2 77.2 GFR is calculate d using the CKD-EPI equation. FINAL [facility] [place], [address] [facility] [place] [phone] 0 Phone: () - 12/19 Mis other lab See printed circuit layout taper d 01/27 Misc other lab See printed circuit layout taper d Medications Date Name Route Dose Frequency Instructions Start Date End Date Status Fill Status Indication 07/19 Ketocon azole Topical Cream 2 % prn active 07/19 Magnesi um Glycina te Oral 2.0 daily active 07/19 Probiot ics Oral daily active 10/24 Cetiriz ine Oral daily active 05/08 Amlodip ine Oral daily active 12/11 Lactase Oral PRN active 07/19 Choleca lcifero l Oral daily active 07/19 Turmeri c (Curcum in) Oral 2.0 daily active 10/24 Rosuvas tatin Calcium Oral daily active 07/19 Propran olol Oral BID active 07/19 Zinc Oral daily active 07/19 Vitamin B Complex Oral Tablet daily active 07/19 Trazodo ne Oral 3.0 qhs active 05/08 methylp redniso lone 2000 MG [...] Systolic 122 06/05/2023 Intravascular Diastolic 80 12/11/2023 Respiratory Rate 16.00 12/11/2023 Pain Scale 3.00 12/11/2023 Heart Beat 45.00 12/11/2023 Body Temperature 97.40 12/11/2023 Oxygen Saturation 99.00 12/11/2023 BSA 1.87 12/11/2023 BMI 28.22 12/11/2023 Height 65.50 12/11/2023 Weight 172.20 12/11/2023 Intravascular Systolic 118 12/11/2023 Intravascular Diastolic 66 12/14/2024 Body Temperature 97.20 12/14/2024 Heart Beat 55.00 12/14/2024 Respiratory Rate 16.00 12/14/2024 Oxygen Saturation 97.00 12/14/2024 BSA 1.91 12/14/2024 Height 65.50 12/14/2024 Weight 180.80 12/14/2024 Pain Scale 0.00 12/14/2024 Intravascular Systolic 110 12/14/2024 Intravascular Diastolic 80 12/14/2024 BMI 29.63 Notes Section * Med Onc Follow-up Note Patient Name: DOTTIE SAUNDERS? Date Of : 1950? Today's Provider:?Josselyn Navarro RN, SURVEILLANCE MONITOR, MA, AOCN Date of Service:?06/05/2023? Attending Physician:?Zaid Motley (Hematology/Oncology) Referring Provider:? HEMATOLOGY/ MEDICAL ONCOLOGY FOLLOW UP VISIT Reason for Visit Interim visit to evaluate leg pain??most likely related to anastrozole Assessment 1. Stage IA left-sided breast ??? 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 12/22/2015: Bilateral breast MRI performed, which showed known biopsied malignancy at 1 o'clock and11:30; 1 o'clock 1.1 cm and 11:30 at 1 cm. 12/24/2015: Normal bone density reported. 01/05/2016: Final pathology shows three cancers. HER-2/mckay on the final cancer is reported as ratioof 1.2, and ER 75% and NV 75%. Three cancers were identified. Two tumors at 1 o'clock and one at 11:30 region. All were grade 1/3. Margins are negative, at least 1 cm from all margins. DCIS negative.DCIS was seen in the background, less than 1 cm. Third small incidental tumor of 0.2 cm was retested, as documented. So, [id number] (M0 clinically). had L mastectomy. Oncotype DX too ordered. This is showing a Recurrence Score of 12, risk of distant recurrence at 8%, with minimal separation of curves for tamoxifen and tamoxifen and chemotherapy arm. ER 9.6; NV score 7, positive; HER-2/mckay 9.2, negative. } [...] her mother.?? Complete genetic testing done in [place] was negative. Social History She lives with her in [place], this is her 2nd marriage. ??They have 2 daughters and 5 grandchildren. One daughter lives??in [place] and the other lives in [place].?? The 1 daughter??is adopted from [place].?? 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 She has moved multiple times due to her husbands job.?? They have recently lived in [place] and [place], now living in [place].?? Vital Signs Blood pressure: 122/80, Pulse: 50, Temperature: 97.7 F, Respirations: 18, O2 sat: 98%, Pain Scale: 0, Height: 65.5 in, Weight: 171.1 lb, BSA: 1.86, BMI: 28.04 kg/m2 Covid-19 vaccine (Moderna) (08/02/2021), Elsewhere; Covid-19 vaccine (Moderna) (11/18/2020), Elsewhere; Covid-19 vaccine (Pfizer) (03/27/2022); Covid-19 vaccine ([employer]) (10/24/2022); Flu vaccine - Adult (10/24/2022); Flu [...] T1c, pN0, M0, G1, ER Status: Positive, NV Status: Positive) Date of Dx:12/12/2015 Histopathologic Type: [...]
[2025-10-16 23:24] LABS: Chloride* 95 mmol/L (96-114); Sodium* 138 mmol/L (135-149)
--- OUTSIDE RECORDS SUMMARY | 2025-10-16 23:24 | XMS_ITS ---
Author Name Interface, [id number] lity Address [address] [address] [facility] Address [address] [address] Support Name Relationship Address Phone Bao Saunders [...] [address] [place] [id number] 0 Phone: () - 12/11 iSTAT creat inine panel GFR estim ate ml/min /1.73m ^2 77.2 GFR is calculate d using the CKD-EPI equation. FINAL [facility] [place], [address] [facility] [place] [phone] 0 Phone: () - 12/19 Mis other lab See strike plate attacher d 01/27 Misc other lab See strike plate attacher d Medications Date Name Route [...] Of : 1950? Today's Provider:?Josselyn Navarro RN, NETWORKER, MA, AOCN Date of Service:?06/05/2023? Attending Physician:?Zaid Motley (Hematology/Oncology) Referring Provider:? HEMATOLOGY/ MEDICAL ONCOLOGY FOLLOW UP VISIT Reason for Visit Interim visit to evaluate leg pain??most likely related to anastrozole Assessment 1. Stage IA left-sided breast ??? 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 12/22/2015: Bilateral breast MRI performed, which showed known biopsied malignancy at 1 o'clock and11:30; 1 o'clock 1.1 cm and 11:30 at 1 cm. 12/24/2015: Normal bone density reported. 01/05/2016: Final pathology shows three cancers. HER-2/mckay on the final cancer is reported as ratioof 1.2, and ER 75% and CO 75%. Three cancers were identified. Two tumors at 1 o'clock and one at 11:30 region. All were grade 1/3. Margins are negative, at least 1 cm from all margins. DCIS negative.DCIS was seen in the background, less than 1 cm. Third small incidental tumor of 0.2 cm was retested, as documented. So, [id number] (M0 clinically). had L mastectomy. Oncotype DX too ordered. This is showing a Recurrence Score of 12, risk of distant recurrence at 8%, with minimal separation of curves for tamoxifen and tamoxifen and chemotherapy arm. ER 9.6; CO score 7, positive; HER-2/mckay 9.2, negative. } [...] her mother.?? Complete genetic testing done in [place] was negative. Social History She lives with her in [place], this is her 2nd marriage. ??They have 2 daughters and 5 grandchildren. One daughter lives??in [place] and the other lives in [place].?? The 1 daughter??is adopted from [place].?? 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 She has moved multiple times due to her husbands job.?? They have recently lived in [place] and [place], now living in [place].?? Vital Signs Blood pressure: 122/80, Pulse: 50, Temperature: 97.7 F, Respirations: 18, O2 sat: 98%, Pain Scale: 0, Height: 65.5 in, Weight: 171.1 lb, BSA: 1.86, BMI: 28.04 kg/m2 Covid-19 vaccine (Moderna) (08/02/2021), Elsewhere; Covid-19 vaccine (Moderna) (11/18/2020), Elsewhere; Covid-19 vaccine (Pfizer) (03/27/2022); Covid-19 vaccine (Bauzaar) (10/24/2022); Flu vaccine - Adult (10/24/2022); Flu [...] T1c, pN0, M0, G1, ER Status: Positive, CO Status: Positive) Date of Dx:12/12/2015 Histopathologic Type: [...]
[2025-10-16 23:25] LABS: Potassium* 3.6 mmol/L (3.6-5.1)
[2025-10-16 23:28] LABS: Anion Gap 13 mEq/L (7-15); Blood Urea Nitrogen* 24 mg/dL (7-30); Calcium* 10.4 mg/dL (8.4-10.6); Carbon Dioxide* 30 mmol/L (20-32); Creatinine* 0.9 mg/dL (0.5-1.5); Est. Creatinine Clearance* 45.50; Estimated Glomerular Filt Rate 67 ml/min; Glucose* 144 mg/dL (60-115)
[2025-10-17 00:28] VITALS: BP 145/71; PULSE 158; RESP 16; O2SAT 98
[2025-10-17 00:30] VITALS: O2SAT 97; O2SAT 98
[2025-10-17] MEDS: PROPOFOL 10 MG/ML INJ 200 MG IVP (01:10)
== END 2025-10-17 01:58 | disposition home or self-care (01) ==
PROVIDERS: Emergency Provider Emergency Medicine Emergency Medical Services; PCP Family Medicine
DX: I48.20 Chronic atrial fibrillation, unspecified (principal); Z79.01 Long term (current) use of anticoagulants
CPT/HCPCS: 36415; 80048; 83735; 84484; 85025; 92960; 93005; 94761; 99285; 99291; A9270; J2704; J7030